=== PATIENT | female | born 1975 | race Caucasian/White ===

== ENCOUNTER → 2019-11-29 09:38 | Outpatient (BNVA) | payer OTHER, SELFPAY | PROVIDERS: PCP Internal Medicine; Visit Provider Physician Assistant | DX: Z76.89 Persons encountering health services in other specified circumstances (principal) ==

== ENCOUNTER → 2019-12-26 13:16 | Outpatient (BNVA) | payer OTHER, SELFPAY | PROVIDERS: PCP Internal Medicine; Referring Provider Internal Medicine; Visit Provider Physician Assistant | DX: Z76.89 Persons encountering health services in other specified circumstances (principal) ==

== ENCOUNTER → 2020-02-10 08:41 | Outpatient (BNVA) | payer OTHER, SELFPAY | PROVIDERS: PCP Internal Medicine; Visit Provider Physician Assistant | DX: Z76.89 Persons encountering health services in other specified circumstances (principal) ==

== ENCOUNTER 2020-02-24 09:43 | Outpatient (REF) | payer OTHER, SELFPAY ==
--- NOTE | 2020-02-24 10:40 | ECG_ITS ---
Test Reason : PREOP Blood Pressure : / mmHG Vent. Rate : 099 BPM Atrial Rate : 099 BPM P-R Int : 138 ms QRS Dur : 082 ms QT Int : 348 ms P-R-T Axes : 053 -34 043 degrees QTc Int : 446 ms Normal sinus rhythm Left axis deviation Abnormal ECG When compared with ECG of 25-AUG-2008 22:46, No significant change was found Referred By: Nelly Segundo Electronically Signed By:MIRANDA SHOOK
--- NOTE | 2020-02-24 10:57 | XR_ITS ---
EXAMINATION: XR CHEST CLINICAL INFORMATION: Bariatric service evaluation; E66.01 COMPARISON: Chest radiographs 08/25/2008, 12/23/2006 TECHNIQUE: 2 views of the chest were obtained. FINDINGS: Lungs are clear. The vascularity is normal. The costophrenic sulci are well-defined. The heart is normal in size. The hilar and mediastinal contours are unremarkable. No acute bony abnormality. XR/XR chest 2V IMPRESSION: Unremarkable examination.
[2020-02-24 11:07] LABS: MANUAL DIFF FLAG NO
[2020-02-24 11:12] LABS: Basophils Absolute Auto 0.1 X10*3/uL (0.0-0.2); Basophils Percent Auto 0.8 % (0-2); Eosinophils Absolute Auto 0.3 X10*3/uL (0.0-0.4); Eosinophils Percent Auto 5.6 % (0-4); Hematocrit 42.7 % (37-47); Hemoglobin 13.7 g/dl (12.0-16.0); Imm Gran Abs Auto 0.02 X10*3/uL (0.00-0.03); Imm Gran Pct Auto 0.3 % (0.0-0.4); Lymphocytes Absolute Auto 1.4 X10*3/uL (1.2-4.9); Lymphocytes Percent Auto 24.1 % (20-40); Mean Corpuscular HGB Conc 32.1 g/dl (31.0-35.0); Mean Corpuscular Hemoglobin 27.1 pg (27.0-33.0); Mean Corpuscular Volume 84.6 fL (80-98); Mean Platelet Volume 10.9 fL (9.4-12.3); Monocytes Absolute Auto 0.3 X10*3/uL (0.1-1.2); Monocytes Percent Auto 4.9 % (2-11); Neutrophils Absolute Auto 3.8 X10*3/uL (2.0-8.3); Neutrophils Percent Auto 64.3 % (45-73); Platelet Count 263 X10*3/uL (160-400); Red Blood Count 5.05 X10*6/uL (4.20-5.50); Red Cell Distribution Width 13.2 % (11.0-16.0); White Blood Count 5.9 X10*3/uL (4.8-10.8)
[2020-02-24 11:30] LABS: Alanine Aminotransferase 30 U/L (0-31); Albumin Level 4.4 g/dL (3.5-5.0); Alkaline Phosphatase 74 U/L (39-117); Anion Gap 10 (12-20); Aspartate Amino Transferase 23 U/L (5-31); Bilirubin Total 0.6 mg/dL (0.0-1.0); Blood Urea Nitrogen 13 mg/dL (9-16); C Reactive Protein 0.34 mg/dL (< or = 0.50); Calcium 9.8 mg/dL (8.4-10.2); Carbon Dioxide 29 mmol/L (22-29); Chloride 104 mmol/L (96-108); Cholesterol 186 mg/dL; Estimated Glomerular Filt Rate > 60; Glucose Fasting 131 mg/dL (60-99); HDL Cholesterol 46 mg/dL; Iron 51 mcg/dL (30-160); LDL Cholesterol Calculated 122 mg/dl; Percent Iron Saturation 13 % (15-50); Potassium 4.3 mmol/l (3.3-5.1); Sodium 139 mmol/L (135-145); Total Iron Binding Capacity 383 mcg/dL (228-428); Total Protein 7.2 g/dL (6.5-8.0); Triglycerides 94 mg/dL; Unsaturated Iron Binding 332 ug/dL
[2020-02-24 11:31] LABS: Estimated Average Glucose 134 mg/dL; Hemoglobin A1c % 6.3 %
[2020-02-24 11:53] LABS: Ferritin 25 ng/mL (10-250); TSH reflex Free T4 1.63 mIU/mL (0.32-4.0); Vitamin D 25-OH Total 26.7 ng/mL (>30)
[2020-02-24 12:15] LABS: Folate > 20.0 ng/mL (> or = 4.0); Vitamin B12 1033 pg/mL (200-900)
[2020-02-25 20:22] LABS: PTHI 38 pg/mL (14-64)
[2020-02-27 00:48] LABS: Zinc 83 mcg/dL (60-130)
[2020-02-29 11:52] LABS: Vitamin B1 12 nmol/L (8-30)
[2020-03-01 13:32] LABS: Vitamin A 42 mcg/dL (38-98)
== END 2020-02-24 09:44 | disposition home or self-care (01) ==
LOC: HO.LAB 09:43
PROVIDERS: PCP Internal Medicine; Visit Provider Physician Assistant
DX: Z01.818 Encounter for other preprocedural examination (principal); E66.01 Morbid (severe) obesity due to excess calories; R06.02 Shortness of breath
CPT/HCPCS: 36415; 71046; 80053; 80061; 82306; 82607; 82728; 82746; 83036; 83525; 83540; 83970; 84425; 84443; 84590; 84630; 85025; 86140; 93005

== ENCOUNTER → 2020-02-25 08:23 | Outpatient (BNVA) | payer OTHER, SELFPAY | PROVIDERS: PCP Internal Medicine; Visit Provider Physician Assistant | DX: Z76.89 Persons encountering health services in other specified circumstances (principal) ==

== ENCOUNTER → 2020-03-12 08:09 | Outpatient (BNVA) | payer OTHER, SELFPAY | PROVIDERS: PCP Internal Medicine; Visit Provider Surgery | DX: Z76.89 Persons encountering health services in other specified circumstances (principal) ==

== ENCOUNTER → 2020-04-02 14:15 | Outpatient (BNVA) | payer OTHER, SELFPAY | PROVIDERS: PCP Internal Medicine; Visit Provider Surgery ==

== ENCOUNTER → 2020-06-04 13:07 | Outpatient (BNVA) | payer OTHER, SELFPAY | PROVIDERS: PCP Internal Medicine; Visit Provider Physician Assistant ==

== ENCOUNTER → 2020-06-19 09:54 | Outpatient (BNVA) | payer OTHER, SELFPAY | PROVIDERS: PCP Internal Medicine; Visit Provider Surgery ==

== ENCOUNTER → 2020-07-10 10:04 | Outpatient (BNVA) | payer OTHER, SELFPAY | PROVIDERS: PCP Internal Medicine; Visit Provider Surgery ==

== ENCOUNTER → 2020-07-31 13:47 | Outpatient (BNVA) | payer OTHER, SELFPAY | PROVIDERS: PCP Internal Medicine; Visit Provider Surgery ==

== ENCOUNTER → 2020-08-14 15:34 | Outpatient (BNVA) | payer OTHER, SELFPAY | PROVIDERS: PCP Internal Medicine; Visit Provider Physician Assistant ==

== ENCOUNTER → 2020-09-01 14:00 | Outpatient (BNVA) | payer OTHER, SELFPAY | PROVIDERS: PCP Internal Medicine; Referring Provider Internal Medicine; Visit Provider Surgery ==

== ENCOUNTER → 2020-10-06 13:47 | Outpatient (BNVA) | payer OTHER, SELFPAY | PROVIDERS: PCP Internal Medicine; Referring Provider Internal Medicine; Visit Provider Surgery ==

== ENCOUNTER → 2020-12-01 11:21 | Outpatient (BNVA) | payer OTHER, SELFPAY | PROVIDERS: PCP Internal Medicine; Referring Provider Internal Medicine; Visit Provider Surgery ==

== ENCOUNTER → 2020-12-15 11:36 | Outpatient (BNVA) | payer OTHER, SELFPAY | PROVIDERS: PCP Internal Medicine; Visit Provider Physician Assistant Surgical ==

== ENCOUNTER 2021-10-26 15:35 | Outpatient (REF) | payer OTHER, SELFPAY ==
[2021-10-27 12:52] LABS: H Pylori Breath Test Positive (Negative)
== END 2021-10-26 15:36 | disposition home or self-care (01) ==
LOC: HO.LNP 15:35
PROVIDERS: Visit Provider Physician Assistant Surgical
DX: E66.01 Morbid (severe) obesity due to excess calories (principal)
CPT/HCPCS: 83013

== ENCOUNTER 2021-11-04 06:43 | Outpatient (REF) | payer OTHER, SELFPAY ==
--- NOTE | ~2021-11-04 | XR_ITS ---
EXAMINATION: XR CHEST 2 VIEWS CLINICAL INFORMATION: Morbid obesity. COMPARISON: Chest radiographs dated 02/24/2020. TECHNIQUE: Frontal and lateral views of the chest were obtained. FINDINGS: The heart, great vessels, pulmonary vasculature and mediastinum are normal. The lungs show no focal infiltrate, effusion or pneumothorax. There is no acute osseous abnormality. XR/XR chest 2V IMPRESSION: No active cardiopulmonary disease.
--- NOTE | 2021-11-04 06:49 | ECG_ITS ---
Test Reason : obesity Blood Pressure : / mmHG Vent. Rate : 095 BPM Atrial Rate : 095 BPM P-R Int : 144 ms QRS Dur : 082 ms QT Int : 358 ms P-R-T Axes : 051 -25 032 degrees QTc Int : 449 ms Normal sinus rhythm Normal ECG When compared with ECG of 24-FEB-2020 10:53, No significant change was found Referred By: Michael Willams Electronically Signed By:MARITZA ROSE
[2021-11-04 07:02] LABS: MANUAL DIFF FLAG NO
[2021-11-04 07:40] LABS: Basophils Absolute Auto 0.1 X10*3/uL (0.0-0.2); Basophils Percent Auto 1.1 % (0-2); Eosinophils Absolute Auto 0.4 X10*3/uL (0.0-0.4); Eosinophils Percent Auto 5.8 % (0-4); Hemoglobin 13.5 g/dl (12.0-16.0); Imm Gran Abs Auto 0.01 X10*3/uL (0.00-0.03); Imm Gran Pct Auto 0.2 % (0.0-0.4); Lymphocytes Absolute Auto 1.8 X10*3/uL (1.2-4.9); Lymphocytes Percent Auto 28.9 % (20-40); Mean Corpuscular HGB Conc 32.9 g/dl (31.0-35.0); Mean Corpuscular Hemoglobin 27.8 pg (27.0-33.0); Mean Corpuscular Volume 84.5 fL (80.0-98.0); Mean Platelet Volume 11.5 fL (9.4-12.3); Monocytes Absolute Auto 0.5 X10*3/uL (0.1-1.2); Monocytes Percent Auto 8.2 % (2-11); Neutrophils Absolute Auto 3.5 x10*3/uL (2.0-8.3); Neutrophils Percent Auto 55.8 % (45-73); Platelet Count 232 X10*3/uL (160-400); Red Blood Count 4.85 X10*6/uL (4.20-5.50); Red Cell Distribution Width 12.8 % (11.0-16.0); White Blood Count 6.2 X10*3/uL (4.8-10.8)
[2021-11-04 08:13] LABS: Estimated Average Glucose 197 mg/dL; Hemoglobin A1c % 8.5 %
[2021-11-04 08:19] LABS: Alanine Aminotransferase 45 U/L (0-31); Albumin Level 4.1 g/dL (3.5-5.0); Alkaline Phosphatase 109 U/L (39-117); Anion Gap 16 (12-20); Aspartate Amino Transferase 30 U/L (5-31); Bilirubin Total 0.9 mg/dL (0.0-1.0); Blood Urea Nitrogen 13 mg/dL (9-16); C Reactive Protein 0.95 mg/dL (< or = 0.50); Calcium 9.1 mg/dL (8.4-10.2); Carbon Dioxide 24 mmol/L (22-29); Chloride 106 mmol/L (96-108); Cholesterol 184 mg/dL; Estimated Glomerular Filt Rate > 60; Glucose Random 193 mg/dL (60-115); HDL Cholesterol 32 mg/dL; Iron 63 mcg/dL (30-160); LDL Cholesterol Calculated 131 mg/dl; Percent Iron Saturation 18 % (15-50); Potassium 4.1 mmol/L (3.3-5.1); Sodium 142 mmol/L (135-145); Total Iron Binding Capacity 360 mcg/dL (228-428); Total Protein 6.9 g/dL (6.5-8.0); Triglycerides 107 mg/dL; Unsaturated Iron Binding 297 ug/dL
[2021-11-04 08:47] LABS: Ferritin 153 ng/mL (10-250); Insulin 20 uU/mL (2-29); TSH reflex Free T4 2.95 uIU/mL (0.32-4.0)
[2021-11-04 09:46] LABS: Folate 14.7 ng/mL (> or = 4.0); Vitamin B12 488 pg/mL (200-900)
[2021-11-05 12:06] LABS: Calcium (PTHI) 9.3 mg/dL (8.6-10.2); PTHI 87 pg/mL (16-77)
[2021-11-07 12:51] LABS: Vitamin B1 9 nmol/L (8-30)
[2021-11-09 06:21] LABS: Zinc 60 mcg/dL (60-130)
[2021-11-10 19:57] LABS: Vitamin A 32 mcg/dL (38-98)
== END 2021-11-04 06:44 | disposition home or self-care (01) ==
LOC: HO.LAB 06:43
PROVIDERS: PCP Internal Medicine; Visit Provider Physician Assistant Surgical
DX: E66.01 Morbid (severe) obesity due to excess calories (principal)
CPT/HCPCS: 36415; 71046; 80053; 80061; 82306; 82607; 82728; 82746; 83036; 83525; 83540; 83970; 84425; 84443; 84590; 84630; 85025; 86140; 93005

== ENCOUNTER → 2021-11-16 11:00 | Outpatient (BNVA) | payer OTHER, SELFPAY | PROVIDERS: Visit Provider Counselor Mental Health | DX: F43.20 Adjustment disorder, unspecified (principal); E66.01 Morbid (severe) obesity due to excess calories | CPT/HCPCS: 90791 ==

== ENCOUNTER → 2021-11-25 09:03 | Outpatient (BNVA) | payer OTHER, SELFPAY | PROVIDERS: PCP Internal Medicine; Visit Provider Dietitian, Registered | DX: E66.01 Morbid (severe) obesity due to excess calories (principal); Z68.41 Body mass index [BMI] 40.0-44.9, adult | CPT/HCPCS: 97802 ==

== ENCOUNTER 2021-12-07 16:49 | Outpatient (REF) | payer OTHER, SELFPAY ==
[2021-12-08 13:54] LABS: H Pylori Breath Test Negative (Negative)
== END 2021-12-07 16:50 | disposition home or self-care (01) ==
LOC: HO.LNP 16:49
PROVIDERS: Visit Provider Physician Assistant Surgical
DX: Z11.2 Encounter for screening for other bacterial diseases (principal)
CPT/HCPCS: 83013

== ENCOUNTER 2021-12-08 07:58 | Outpatient (REF) | payer OTHER, SELFPAY ==
--- NOTE | ~2021-12-08 | FL_ITS ---
EXAMINATION: XR FLUOROSCOPY UPPER GI WITH AIR CLINICAL INFORMATION: Obesity COMPARISON: None TECHNIQUE: Upper GI was performed using thin and thick barium and effervescent granules FINDINGS: Esophageal motility is normal. No hernia or reflux is seen. The stomach and duodenum are normal. No fold thickening, mass, ulcer or stricture is seen. FLUOROSCOPY TIME: 0.6 minutes DOSE AREA PRODUCT: 7.4 guadalupe per centimeter squared. 22 saved fluoroscopic images. FL/FL upper GI w air IMPRESSION: Unremarkable examination.
--- NOTE | ~2021-12-08 | US_ITS ---
EXAMINATION: US COMPLETE ABDOMEN WITH LIVER ELASTOGRAPHY CLINICAL INFORMATION: Obesity COMPARISON: None. TECHNIQUE: Real-time imaging of the abdominal viscera. Noninvasive ultrasound liver fibrosis assessment is performed using Parisa ElastPQ point quantification shear wave elastography (2D-SWE) with a C5-2 MHz transducer. Multiple elastography samples are obtained. Limited exam due to bowel gas and body habitus. FINDINGS: PANCREAS: Not well visualized due to bowel gas ABDOMINAL AORTA: The proximal, middle, and distal aortic segments are normal in caliber. INFERIOR VENA CAVA: Visualized portions are normal. LIVER: Liver echotexture is increased. The liver is enlarged. The liver is normal in contour. No focal lesion or intrahepatic biliary duct dilatation. The right lobe measures 19 cm in length. The left lobe measures 18 cm in length. Portal flow is normal/hepatopedal. Left sonography is limited due to depth of the liver. Shear wave liver elastography median stiffness is 1.6 m/s (reference: normal median stiffness is 1.3 m/s or less). IQR/median stiffness to assess sampling precision is 0.08 (reference: good quality data set is IQR/median stiffness of 0.15 or less). GALLBLADDER: Normal. The gallbladder is physiologically distended without evidence of stones, sludge, polyps, wall thickening or pericholecystic fluid. COMMON BILE DUCT: Not seen RIGHT KIDNEY: Normal. No hydronephrosis. No renal calculi or focal parenchymal lesions. The kidney measures 10.4 cm in maximum dimension. LEFT KIDNEY: There are 2 stones measuring 5 mm in the lower pole. No hydronephrosis. No focal parenchymal lesions. The kidney measures 11.7 cm in maximum dimension. SPLEEN: Normal. The spleen measures 12 cm in maximum dimension. FREE FLUID: None. US/US abdomen comp w elastography IMPRESSION: 1. Impression: Enlarged echogenic liver suggestive of fatty infiltration. Limited visualization of the pancreas. Nonvisualization of the common bile duct. Left renal stones. 2. Liver elastography: Difficult exam due to depth of the liver and may not be diagnostic.. REFERENCE: Society of Radiologists in Ultrasound Liver Stiffness Thresholds (2020): LIVER STIFFNESS THRESHOLDS: *Liver Stiffness equal or less than 1.3 m/s: High probability of being normal. *Liver Stiffness less than 1.7 m/s: In the absence of other known clinical signs, rules out compensated advanced chronic liver disease. *Liver Stiffness 1.7-2.1 m/s: Suggestive of compensated advanced chronic liver disease but need further test for confirmation. *Liver Stiffness over 2.1 m/s: Rules in compensated advanced chronic liver disease. *Liver Stiffness over 2.4 m/s: Suggestive of clinically significant portal hypertension. QUALITY OF DATA SET: *IQR/Median value equal or less than 0.15 implies a quality data set. *IQR/Median value over 0.15 implies a poor quality data set. SIGNIFICANT CHANGE FROM PRIOR EXAM: Significant change if liver stiffness measurement is 10% or greater from prior exam. OTHER CONSIDERATIONS: The stage of liver fibrosis may be overestimated in the setting of acute hepatitis, liver inflammation, elevated liver function tests, hepatic vascular congestion, obstructive cholestasis, non-fasting state, and infiltrative diseases such as amyloidosis and lymphoma. In some patients with NAFLD, the liver stiffness thresholds for compensated advanced chronic liver disease may be lower. In causes other than viral hepatitis and NAFLD, liver stiffness thresholds are not well established.
== END 2021-12-08 07:59 | disposition home or self-care (01) ==
LOC: HO.US 07:58
PROVIDERS: Visit Provider Physician Assistant Surgical
DX: E66.01 Morbid (severe) obesity due to excess calories (principal)
CPT/HCPCS: 74246; 76705; 76981

== ENCOUNTER → 2022-03-21 08:18 | Outpatient (BNVA) | payer OTHER, SELFPAY | PROVIDERS: PCP Internal Medicine; Visit Provider Surgery | DX: Z13.89 Encounter for screening for other disorder (principal) ==

== ENCOUNTER → 2022-05-06 08:15 | Outpatient (BNVA) | payer OTHER, SELFPAY | PROVIDERS: PCP Internal Medicine; Visit Provider Surgery | DX: Z13.89 Encounter for screening for other disorder (principal) ==

== ENCOUNTER → 2022-05-16 08:02 | Outpatient (BNVA) | payer OTHER, SELFPAY | PROVIDERS: PCP Internal Medicine; Visit Provider Surgery | DX: E66.01 Morbid (severe) obesity due to excess calories (principal); K21.9 Gastro-esophageal reflux disease without esophagitis; R11.0 Nausea; Z01.818 Encounter for other preprocedural examination ==

== ENCOUNTER 2022-05-17 08:20 | Outpatient (REF) | payer OTHER, SELFPAY ==
[2022-05-17 08:50] LABS: MANUAL DIFF FLAG NO
[2022-05-17 09:39] LABS: Basophils Absolute Auto 0.1 X10*3/uL (0.0-0.2); Basophils Percent Auto 1.4 % (0-2); Eosinophils Absolute Auto 0.3 X10*3/uL (0.0-0.4); Eosinophils Percent Auto 4.3 % (0-4); Hematocrit 44.2 % (37.0-47.0); Hemoglobin 14.4 g/dl (12.0-16.0); Imm Gran Abs Auto 0.02 X10*3/uL (0.00-0.03); Imm Gran Pct Auto 0.3 % (0.0-0.4); Lymphocytes Absolute Auto 1.4 X10*3/uL (1.2-4.9); Lymphocytes Percent Auto 21.6 % (20-40); Mean Corpuscular HGB Conc 32.6 g/dl (31.0-35.0); Mean Corpuscular Hemoglobin 27.2 pg (27.0-33.0); Mean Corpuscular Volume 83.6 fL (80.0-98.0); Mean Platelet Volume 11.4 fL (9.4-12.3); Monocytes Absolute Auto 0.4 X10*3/uL (0.1-1.2); Monocytes Percent Auto 6.8 % (2-11); Neutrophils Absolute Auto 4.2 x10*3/uL (2.0-8.3); Neutrophils Percent Auto 65.6 % (45-73); Platelet Count 271 X10*3/uL (160-400); Red Blood Count 5.29 X10*6/uL (4.20-5.50); Red Cell Distribution Width 12.7 % (11.0-16.0); White Blood Count 6.5 X10*3/uL (4.8-10.8)
[2022-05-17 09:43] LABS: Prothrombin Time 11.7 SEC (10.0-13.1)
[2022-05-17 09:45] LABS: Partial Thromboplastin Time 37.4 SEC (26.0-36.4)
[2022-05-17 09:48] LABS: Estimated Average Glucose 174 mg/dL; Hemoglobin A1c % 7.7 %
[2022-05-17 10:27] LABS: Alanine Aminotransferase 59 U/L (0-31); Albumin Level 4.5 g/dL (3.5-5.0); Alkaline Phosphatase 103 U/L (39-117); Anion Gap 15 (12-20); Aspartate Amino Transferase 42 U/L (5-31); Bilirubin Total 1.3 mg/dL (0.0-1.0); Blood Urea Nitrogen 14 mg/dL (9-16); C Reactive Protein 0.58 mg/dL (< or = 0.50); Carbon Dioxide 28 mmol/L (22-29); Chloride 103 mmol/L (96-108); Cholesterol 166 mg/dL; Estimated Glomerular Filt Rate > 60; Glucose Random 124 mg/dL (60-115); HDL Cholesterol 29 mg/dL; LDL Cholesterol Calculated 116 mg/dl; Potassium 4.1 mmol/L (3.3-5.1); Sodium 142 mmol/L (135-145); Total Protein 7.3 g/dL (6.5-8.0); Triglycerides 106 mg/dL
[2022-05-17 10:49] LABS: Insulin 12 uU/mL (2-29); TSH reflex Free T4 1.55 uIU/mL (0.32-4.0)
== END 2022-05-17 08:21 | disposition home or self-care (01) ==
LOC: HO.LAB 08:20
PROVIDERS: PCP Internal Medicine; Visit Provider Surgery
DX: E66.01 Morbid (severe) obesity due to excess calories (principal)
CPT/HCPCS: 36415; 80053; 80061; 83036; 83525; 84443; 85025; 85610; 85730; 86140; 86850; 86900; 86901

== ENCOUNTER → 2022-05-20 12:59 | Outpatient (BNVA) | payer OTHER, SELFPAY | PROVIDERS: PCP Internal Medicine; Visit Provider Surgery | DX: Z13.89 Encounter for screening for other disorder (principal) ==

== ENCOUNTER → 2022-05-26 07:57 | Day surgery (SDC) | payer OTHER, SELFPAY ==
[2022-05-16 13:56] VITALS: BMI 42.0
--- NOTE | 2022-05-20 18:55 | MHC.SHP ---
Pre-Procedural Eval Section A Date of Service: 05/20/22 The patient is an INPATIENT: Yes The History & Physical has been completed within 30 days and I have reviewed it.: Yes Section B Chief Complaint: Morbid (severe) obesity due to excess calories Relevant Family History (Specify if Yes): No Relevant Social History: None Present Medications: None Medical History: No relevant PMH History of Previous Operations: No relevant previous surgery Allergies: Allergies Allergy/AdvReac Type Severity Reaction Status Date / Time Seasonal Allergies Allergy Intermediate Sneezing Verified 05/16/22 09:18 Review of Systems Sugical H&P ROS: Negative: Constitution, Cardiovascular, Respiratory, Neurological, Psychiatric, Hem-Onc, Allergic/Immunologic, Gastrointestinal, Genitourinary, Musculoskeletal, Integumentary, Endocrine and Eyes/Ears/Nose/Throat Exam Surgical H&P Exam: Normal: HEENT, Normal: Heart, Normal: Lungs, Normal: Extremities, Normal: Abdomen, Normal: Skin and Normal: Neurological Plan Diagnosis/Plan: Unchanged I have reviewed the history and physical and performed a pertinent physical examination on my patient. No changes have occurred unless specified. Time Spent With Patient Time: Total time managing care of this patient today ____ minutes.
--- NOTE | 2022-05-25 09:38 | P.CONAN_ITS ---
HPI - Anesthesia Eval Consult details Narrative: 46yo F for Gastrectomy Sleeve EGD, possible diaphragmatic hernia, possible ventral hernia,possible open PMFSH Active Problems Active Problems: All Active Problems (Updated 05/16/22 @ 13:56 by Julianne Bedoya RN) Morbid obesity (Acute) Body mass index (BMI) of 40.0 to 44.9 in adult (Acute) BMI 45.0-49.9, adult (Acute) Morbid obesity with BMI of 45.0-49.9, adult (Acute) Adjustment disorder, unspecified (Acute) Vitamin B12 deficiency (Acute) Hyperlipidemia (Acute) GERD (gastroesophageal reflux disease) (Acute) Type 2 diabetes mellitus (Acute) Asthma (Acute) Hypertension (Acute) Past Medical History Medical History (Updated 05/16/22 @ 13:56 by Julianne Bedoya RN) Anxiety Asthma Hx MRSA infection Hypertension IBS (irritable bowel syndrome) Seasonal allergies Type 2 diabetes mellitus Family History Family History Father Hypertension Diabetes mellitus Mother Hypertension Seizures Brother Hypertension Son No problems noted. Surgical History Surgical History (Updated 05/16/22 @ 13:55 by Julianne Bedoya RN) H/O: hysterectomy History of facial surgery Hx of section S/P correction of deviated nasal septum Sigmoidoscopy performed Social History Social History Household Members Other:: minor child & mother Are you a primary personal care aide to a significant other at home: Yes (minor child) Do you presently have visiting nurse or other home services: No Alcohol intake: current Alcohol intake frequency: holidays/special occasions only Patient Tobacco Use Status: Never used Tobacco Use of substances other than those prescribed or required for medical reasons: No Have you been hit, kicked, punched, or otherwise hurt by someone within the past year? If so, by whom?: No Are you DNR?: No Advance Directives: No (mother is primary contact) Advance Directives Information Provided: Yes (as above noted-brochure mailed) Advance Directives on File: No Recently lost weight without trying: No Nutrition Risks: No Nutritional Risk Patient : No : No Poor oral hygiene: No (bonded tooth upper front) Meds Allergies Allergy/AdvReac Type Severity Reaction Status Date / Time Seasonal Allergies Allergy Intermediate Sneezing Verified 05/16/22 09:18 Home Medications Medication Instructions Recorded Confirmed Last Taken Type albuterol sulfate 90 mcg/actuation 2 puff inhalation Q6H PRN Wheezing 11/27/19 05/26/22 05/25/22 History aerosol inhaler (ProAir HFA) amlodipine 5 mg tablet 5 mg PO DAILY 11/27/19 05/26/22 05/25/22 History lisinopril 40 mg tablet 40 mg PO DAILY 11/27/19 05/26/22 05/25/22 History cetirizine 10 mg capsule (All Day 10 mg PO DAILY 02/25/20 05/26/22 05/25/22 History Allergy (cetirizine)) metformin 500 mg tablet,extended 1 tab PO BID 05/16/22 05/26/22 05/25/22 22:00 History release 24 hr ondansetron HCl 4 mg tablet 4 mg PO Q12H PRN Nausea And 05/26/22 05/26/22 Unknown History Vomiting Exam Exam Date and Time: May 25, 2022 0938 Height,Weight and Vital Signs: Height 5 ft 3 in Weight 107.501 kg Pertinent Lab Results Pertinent Lab Results: Laboratory Tests 05/17/22 08:45 Blood Type O Positive Antibody Screen NEGATIVE Laboratory Tests 05/17/22 05/17/22 08:49 08:49 WBC 6.5 Hgb 14.4 Hct 44.2 Plt Count 271 Sodium 142 Potassium 4.1 Chloride 103 Carbon Dioxide 28 BUN 14 Creatinine 0.77 Narrative Narrative: EKG 10/2021 Vent. Rate : 095 BPM ? ? Atrial Rate : 095 BPM ?? P-R Int : 144 ms? QRS Dur : 082 ms ? ? QT Int : 358 ms ? ? ? P-R-T Axes : 051 -25 032 degrees ?? QTc Int : 449 ms ? Normal sinus rhythm Normal ECG When compared with ECG of 24-FEB-2020 10:53, No significant change was found Assessment and Plan Assessment Anesthesia Assessment: Chart Reviewed
[2022-05-25 14:03] LABS: COVID-19 Test Invalid (Negative); IDNOW Serial# BCCEAD1C
--- NOTE | ~2022-05-26 | XR_ITS ---
EXAMINATION: XR CHEST CLINICAL INFORMATION: Laryngitis COMPARISON: Chest radiograph from 11/04/2021 TECHNIQUE: 2 views of the chest were obtained. FINDINGS: Elevation of the right hemidiaphragm, stable. Right basilar atelectasis. No pneumothorax. Trachea is midline. Cardiomediastinal silhouette is not enlarged. No large pleural effusion. Osseous structures are intact. Soft tissues are unremarkable. XR/XR chest 2V IMPRESSION: 1. Elevation of the right hemidiaphragm, stable. 2. Right basilar atelectasis.
[2022-05-26 08:32] LABS: COVID-19 Test Negative (Negative); IDNOW Serial# 08D9AD1C
--- NOTE | 2022-05-26 11:17 | PHA.MEDREC ---
Pharmacy Consult ? Medication Reconciliation Pharmacy has completed the medication reconciliation. Reviewed med rec done by nursing
[2022-05-26 11:20] VITALS: BP 160/78; PULSE 146; RESP 16; TEMP 36.3; O2SAT 99
[2022-05-26 11:23] VITALS: PULSE 136; TEMP 36.7
[2022-05-26 11:30] LABS: Glucose, Whole Blood 111 mg/dL (60-115)
[2022-05-26 11:38] VITALS: PULSE 121
--- NOTE | 2022-05-26 11:47 | PC.NURSE ---
patient is extremely anxious. she is going to meditate in order to decrease her heart rate down. iv inserted and fluids open wide open
[2022-05-26] MEDS: Lactated Ringers 1,000 ML 999 ML IV (11:49)
[2022-05-26 12:21] VITALS: PULSE 111
[2022-05-26 12:23] VITALS: BP 133/98; PULSE 101; RESP 16; O2SAT 100
--- NOTE | 2022-05-26 12:28 | ECG_ITS ---
Test Reason : preop Blood Pressure : / mmHG Vent. Rate : 114 BPM Atrial Rate : 114 BPM P-R Int : 142 ms QRS Dur : 090 ms QT Int : 334 ms P-R-T Axes : 040 -41 032 degrees QTc Int : 460 ms Sinus tachycardia Left axis deviation Anterolateral infarct , age undetermined Abnormal ECG When compared with ECG of 04-NOV-2021 06:47, Anterolateral infarct is now Present - lead positioning and body habitus may play a role. Referred By: Yoana Esquivel Electronically Signed By:MIRANDA SHOOK
[2022-05-26] MEDS: Lactated Ringers 1,000 ML 100 ML IVCONT (12:48)
--- NOTE | 2022-05-26 13:44 | PC.NURSE ---
IV REMOVED. PATIENT WAS SEEN BY MD PROCTOR AND WAS CANCELLED DUE EKG CHANGES. NO CP OR SOB. PATIENT CALLED FOR HER RIDE HOME.
== END ==
LOC: HO.SSS 07:57 → HO.SSSA 05-27 07:52 → HO.SSS 11-23 01:12
PROVIDERS: Physician Assistant Surgical; PCP Internal Medicine; Visit Provider Surgery
DX: E66.01 Morbid (severe) obesity due to excess calories (principal); Z68.41 Body mass index [BMI] 40.0-44.9, adult; Z53.09 Procedure and treatment not carried out because of other contraindication; R94.31 Abnormal electrocardiogram [ECG] [EKG]; E11.9 Type 2 diabetes mellitus without complications; Z20.822 Contact with and (suspected) exposure to COVID-19
CPT/HCPCS: 71046; 82947; 86850; 86900; 86901; 87635; 93005; J0131; J0690

== ENCOUNTER → 2022-06-07 09:35 | Outpatient (REF) | payer OTHER, SELFPAY ==
--- NOTE | ~2022-06-07 | NM_ITS ---
Lexiscan Myocardial perfusion study Indication: Preoperative cardiovascular examination Technique: The patient was brought in for a Lexiscan perfusion study on 06/07/2022 and was injected 0.4 mg of Lexiscan intravenously. Within a minute of this injection 40 mCi of sestamibi was given intravenously. Images were obtained using the SPECT gamma camera interlaced with the gating device. Images were obtained in supine position. Resting perfusion study was performed on 06/09/2022. Patient was administered 40 mCi of sestamibi intravenously at rest. Images were then obtained in supine position. Images were processed with the software and compared side to side in short axis, horizontal long axis and vertical long axis views. Total DLP 135mGy-cm. Findings: Raw acquisition reviewed. The stress perfusion study showed markedly reduced tracer uptake in the distal anterior septum. No significant change with CT attenuation correction. The gated study shows normal LV systolic function with calculated LVEF of 61%. LV cavity is normal in size. The gated study shows reduced contractility in the distal anterior septum. Resting study shows diminished tracer uptake in the distal part of anterior septum and adjacent anterior wall. Appearance similar to stress acquisition. No significant change with CT attenuation correction. Gating at rest reveals ejection fraction at 51%. Reduced contractility in the distal anterior septum. The findings are consistent with no clear reversible defects. Fixed defect in the distal part of anterior septum. NM/NM tello perf SPECT rest & str Impression: 1. Myocardial perfusion imaging study shows no evidence of ischemia. Fixed distal anteroseptal defect that could be from prior infarct. Cannot exclude soft tissue attenuation artifact. 2. Gated LVEF is 61% during stress and 51% during rest. 3. Transient ischemic dilatation not present. EKG component of the test reported separately.
--- NOTE | 2022-06-07 09:38 | CA_ITS ---
Acquisition Time: 2022-06-07 09:55:21 Total Exercise Time: 00:02:00 Test Indications: PREPROC EXAM Medications: Protocol: LEXISCAN Max HR: 169 BPM 96% of Pred: 176 BPM Max BP: 184/088 mmHG Max Work Load: 1.0 METS Pharmacological stress test with Lexiscan injection while sitting and kicking her legs, without anignal symptoms, without arrythmias, with normotensive response to injection, without EKG changes. In recovery reversed with Aminophyillne 75mg IVP. Nuclear images pending. Tets reviewed with Dr. Escobedo. Referred By: Michael Willams Overread By: REDD COLLINS
== END ==
LOC: HO.CARD 09:35
PROVIDERS: Visit Provider Surgery
DX: Z01.818 Encounter for other preprocedural examination (principal); R06.02 Shortness of breath; R94.31 Abnormal electrocardiogram [ECG] [EKG]
CPT/HCPCS: 78452; 93017; A9500; J0280; J2785

== ENCOUNTER → 2022-06-10 07:58 | Outpatient (REF) | payer OTHER, SELFPAY ==
--- NOTE | 2022-06-10 08:02 | CA_ITS ---
Transthoracic Echocardiogram Patient (Last, First, Middle): Kaity Graham M Gender: Female Date of : 1975 Age: 46 Procedure Date: 06/10/2022 Procedure Type: Transthoracic Echocardiogram Location: OP Height: 160.02 cm Weight: 101.15 kg BSA: 2.03 m2 Heart Rate: bpm BP: 124 / 80 mmHg Beer Maker: Referring MD: Michael GAINES Streetcar Operator: Shade Escobedo MD Symptoms: Z01.818 PRE-OP, R94.31 - Abnormal electrocardiogram [ECG] [EKG] Study Quality: Adequate ECG Rhythm: Sinus Conclusions: - 1. Normal LV systolic function with grade 1 diastolic dysfunction 2. Normal cardiac valvular Doppler 3. Normal RV systolic pressure 4. No gross pericardial effusion Findings Left Ventricle Normal left ventricular size, thickness, and systolic function. The visually estimated ejection fraction is between 55-60%. Spectral Doppler is indicative of an impaired relaxation filling pattern. E/E prime ratio is <8, consistent with normal filling pressures. Evidence suggests grade I (mild) diastolic dysfunction. Right Ventricle Normal right ventricular cavity size and systolic function. Atria Both atria are normal in size. There is no evidence of interatrial shunt. Aortic Valve Normal aortic valve structure and function. There is no aortic valve stenosis. There is no aortic valve regurgitation. Mitral Valve Normal mitral valve structure and function. There is trace mitral valve regurgitation. There is no mitral valve stenosis. Pulmonic Valve The pulmonic valve is likely normal. Tricuspid Valve Normal tricuspid valve structure. There is trace tricuspid valve regurgitation. The right ventricular systolic pressure is normal. The right ventricular systolic pressure is 20 mmHg. Normal right atrial pressure. There is no evidence of pulmonary hypertension. Great Vessels All visible segments of the aorta are normal in size. The pulmonary artery was not well visualized. Venous The inferior vena cava is normal in size and collapses greater than 50% with inspiration. Pericardium/Pleural There is no evidence of pericardial effusion. Prior Study Comparison No prior study available for comparison. Measurements 2D Linear Measurements IVSd: 1.09 0.6-0.9/0.6-1.0 cm LVIDd: 4.39 3.9-5.3/4.2-5.9 cm LVIDd Index: 2.16 2.4-3.2/2.2-3.1 cm/m2 LVIDs: 2.85 2.0-3.6 cm LVPWd: 1.18 0.7-1.1 cm Ao Root: 3.00 2.1-3.5 cm LA Diam: 3.60 2.7-3.8/3.0-4.0 cm LAIDs Index: 1.77 1.5-2.3 cm/m2 LV Mass: 219.24 67-162/88-224 g LV Mass Index: 108.00 43-95/49-115 g/m2 LVOT Diam: 2.00 3.0+(-)1.3 cm 2D Systolic Function EF 4C: 57.40 >55% EF 2C: 58.10 >55% EF BiP: 57.60 >55% Mitral Valve MV Pk E: 0.57 MV PK A: 0.87 MV Decel Time: 228.00 E/A: 0.70 E'Lateral: 7.83 E'Medial: 4.79 E/E' Med: 11.80 E/E' Lat: 7.20 PHT: 67.00 MVA PHT: 3.28 Decel [place]: 2.48 Aortic Valve AoV Pk Will: 1.79 AoV Mn Will: 1.12 AoV VTI: 0.32 AoV Pk Grad: 13.00 Aov Mn Grad: 6.00 LILLIAN Cont.VTI: 2.47 LVOT LVOT Pk Will: 1.39 LVOT Mn Will: 0.89 LVOT VTI: 0.25 LVOT Pk Grad: 8.00 LVOT Mn Grad: 4.00 LVOT Diam: 2.00 LVOT Area: 3.14 Diastolic Function MV Pk E: 0.57 MV Pk A: 0.87 E/A: 0.70 E'Medial: 4.79 E/E' Med: 11.80 E' Laterial: 7.83 E/E' Lat: 7.20 Right Ventricle TAPSE (mm): 21.00 TVS' Will: 13.00 Tricuspid Valve TR Pk Will: 2.08 TR Pk Grad: 17.00 RA Press: 3.00 RVSP: 20.00 Great Vessels Aorta Ao Root-2D: 3.00 2.0-3.7 cm Ao Asc: 3.20 2.1-3.4 cm Pulmonary Valve PV Pk Will: 1.14 Peak PV Grad: 5.00 Updated in Other Vendor System with Status of Final Shade Escobedo MD electronically signed on 06/10/2022 3:27:30 PM with status of Final
--- NOTE | 2022-06-10 08:02 | HM_ITS ---
Conclusion: 1. Patient was monitored for total period of 2 days 2. Baseline was normal sinus rhythm with average heart of 77 beats per minute 3. No pauses noted 4. Very rare ectopy noted 5. Patient reported total 7 events, 3 of these events were with wrong dates. The other 4 events correlated with sinus rhythm MTDD
== END ==
LOC: HO.CARD 07:58
PROVIDERS: Visit Provider Surgery
DX: Z01.818 Encounter for other preprocedural examination (principal); R06.02 Shortness of breath; R94.31 Abnormal electrocardiogram [ECG] [EKG]
CPT/HCPCS: 93225; 93306

== ENCOUNTER → 2022-06-16 14:32 | Outpatient (BNVA) | payer OTHER, SELFPAY | PROVIDERS: PCP Internal Medicine; Referring Provider Internal Medicine; Visit Provider Internal Medicine | DX: Z13.89 Encounter for screening for other disorder (principal) ==

== ENCOUNTER 2022-07-15 08:16 | Outpatient (REF) | payer OTHER, SELFPAY ==
[2022-07-15 08:38] LABS: MANUAL DIFF FLAG NO
[2022-07-15 08:43] LABS: Basophils Absolute Auto 0.1 X10*3/uL (0.0-0.2); Basophils Percent Auto 0.9 % (0-2); Eosinophils Absolute Auto 0.4 X10*3/uL (0.0-0.4); Eosinophils Percent Auto 5.5 % (0-4); Hematocrit 40.7 % (37.0-47.0); Hemoglobin 13.2 g/dl (12.0-16.0); Imm Gran Abs Auto 0.02 X10*3/uL (0.00-0.03); Imm Gran Pct Auto 0.3 % (0.0-0.4); Lymphocytes Absolute Auto 1.4 X10*3/uL (1.2-4.9); Lymphocytes Percent Auto 19.7 % (20-40); Mean Corpuscular HGB Conc 32.4 g/dl (31.0-35.0); Mean Corpuscular Hemoglobin 27.3 pg (27.0-33.0); Mean Corpuscular Volume 84.3 fL (80.0-98.0); Mean Platelet Volume 10.2 fL (9.4-12.3); Monocytes Absolute Auto 0.6 X10*3/uL (0.1-1.2); Monocytes Percent Auto 8.5 % (2-11); Neutrophils Absolute Auto 4.5 x10*3/uL (2.0-8.3); Neutrophils Percent Auto 65.1 % (45-73); Platelet Count 316 X10*3/uL (160-400); Red Blood Count 4.83 X10*6/uL (4.20-5.50); Red Cell Distribution Width 13.8 % (11.0-16.0); White Blood Count 6.9 X10*3/uL (4.8-10.8)
[2022-07-15 08:47] LABS: INTERNATIONAL NORM RATIO 0.9 (0.9-1.1); Prothrombin Time 10.8 SEC (10.0-13.1)
[2022-07-15 09:16] LABS: Anion Gap 12 (12-20); Blood Urea Nitrogen 7 mg/dL (9-16); Calcium 9.3 mg/dL (8.4-10.2); Carbon Dioxide 30 mmol/L (22-29); Chloride 107 mmol/L (96-108); Estimated Glomerular Filt Rate > 60; Glucose Random 130 mg/dL (60-115); Potassium 3.7 mmol/L (3.3-5.1); Sodium 145 mmol/L (135-145)
== END 2022-07-15 08:17 | disposition home or self-care (01) ==
LOC: HO.LAB 08:16
PROVIDERS: PCP Internal Medicine; Visit Provider Internal Medicine
DX: Z01.810 Encounter for preprocedural cardiovascular examination (principal)
CPT/HCPCS: 36415; 80048; 85025; 85610

== ENCOUNTER → 2022-07-27 08:40 | Outpatient (BNVA) | payer OTHER, SELFPAY | PROVIDERS: PCP Internal Medicine; Visit Provider Surgery ==

== ENCOUNTER → 2022-08-03 14:41 | Outpatient (BNVA) | payer OTHER, SELFPAY | PROVIDERS: PCP Internal Medicine; Referring Provider Internal Medicine; Visit Provider Internal Medicine ==

== ENCOUNTER 2022-08-10 06:11 | Day surgery (SDC) | payer OTHER, SELFPAY ==
[2022-08-02 08:15] LABS: MANUAL DIFF FLAG NO
[2022-08-02 08:24] LABS: Basophils Absolute Auto 0.1 X10*3/uL (0.0-0.2); Eosinophils Absolute Auto 0.3 X10*3/uL (0.0-0.4); Eosinophils Percent Auto 3.8 % (0-4); Hematocrit 43.2 % (37.0-47.0); Hemoglobin 13.9 g/dl (12.0-16.0); Imm Gran Abs Auto 0.03 X10*3/uL (0.00-0.03); Imm Gran Pct Auto 0.4 % (0.0-0.4); Lymphocytes Absolute Auto 1.4 X10*3/uL (1.2-4.9); Lymphocytes Percent Auto 20.1 % (20-40); Mean Corpuscular HGB Conc 32.2 g/dl (31.0-35.0); Mean Corpuscular Hemoglobin 27.3 pg (27.0-33.0); Mean Corpuscular Volume 84.7 fL (80.0-98.0); Mean Platelet Volume 11.1 fL (9.4-12.3); Monocytes Absolute Auto 0.5 X10*3/uL (0.1-1.2); Monocytes Percent Auto 6.9 % (2-11); Neutrophils Absolute Auto 4.6 x10*3/uL (2.0-8.3); Neutrophils Percent Auto 67.8 % (45-73); Platelet Count 235 X10*3/uL (160-400); Red Cell Distribution Width 13.5 % (11.0-16.0); White Blood Count 6.8 X10*3/uL (4.8-10.8)
[2022-08-02 08:37] LABS: Estimated Average Glucose 140 mg/dL; Hemoglobin A1c % 6.5 %
[2022-08-02 08:41] LABS: Prothrombin Time 11.1 SEC (10.0-13.1)
[2022-08-02 08:44] LABS: Partial Thromboplastin Time 35.2 SEC (26.0-36.4)
[2022-08-02 08:56] LABS: Alanine Aminotransferase 38 U/L (0-31); Albumin Level 4.2 g/dL (3.5-5.0); Alkaline Phosphatase 94 U/L (39-117); Anion Gap 14 (12-20); Aspartate Amino Transferase 29 U/L (5-31); Bilirubin Total 1.7 mg/dL (0.0-1.0); Blood Urea Nitrogen 14 mg/dL (9-16); C Reactive Protein 0.87 mg/dL (< or = 0.50); Calcium 9.7 mg/dL (8.4-10.2); Carbon Dioxide 27 mmol/L (22-29); Chloride 104 mmol/L (96-108); Cholesterol 134 mg/dL; Estimated Glomerular Filt Rate > 60; Glucose Random 161 mg/dL (60-115); HDL Cholesterol 27 mg/dL; LDL Cholesterol Calculated 84 mg/dl; Potassium 3.8 mmol/L (3.3-5.1); Sodium 141 mmol/L (135-145); Total Protein 7.1 g/dL (6.5-8.0); Triglycerides 116 mg/dL
[2022-08-02 09:15] LABS: TSH reflex Free T4 1.31 uIU/mL (0.32-4.0)
[2022-08-02 09:30] LABS: Insulin 20 uU/mL (2-29)
[2022-08-03 13:47] VITALS: BMI 39.1
--- NOTE | 2022-08-06 12:08 | MHC.SHP ---
Pre-Procedural Eval Section A Date of Service: 08/06/22 The patient is an INPATIENT: No The History & Physical has been completed within 30 days and I have reviewed it.: Yes Section B Chief Complaint: obesity Relevant Family History (Specify if Yes): No Relevant Social History: None Present Medications: None Medical History: No relevant PMH History of Previous Operations: No relevant previous surgery Allergies: Allergies Allergy/AdvReac Type Severity Reaction Status Date / Time Seasonal Allergies Allergy Intermediate Sneezing Verified 08/03/22 14:46 Review of Systems Sugical H&P ROS: Negative: Constitution, Cardiovascular, Respiratory, Neurological, Psychiatric, Hem-Onc, Allergic/Immunologic, Gastrointestinal, Genitourinary, Musculoskeletal, Integumentary, Endocrine and Eyes/Ears/Nose/Throat Exam Surgical H&P Exam: Normal: HEENT, Normal: Heart, Normal: Lungs, Normal: Extremities, Normal: Abdomen, Normal: Skin and Normal: Neurological Plan Diagnosis/Plan: Unchanged I have reviewed the history and physical and performed a pertinent physical examination on my patient. No changes have occurred unless specified. Time Spent With Patient Time: Total time managing care of this patient today ____ minutes.
--- NOTE | 2022-08-09 10:31 | P.CONAN_ITS ---
Documented by User: Janny Chilel NP 08/09/22 10:33 HPI - Anesthesia Eval Consult details Narrative: 46yo F for Gastrectomy Sleeve,EGD Poss, Diaphragmatic hernia,Poss Ventral Hernia,Poss Open Cardiac cleared: Overall, the EKG findings as well as stress perfusion imaging findings all related to her obesity. No further cardiac testing. Reassurance only. May proceed with bariatric surgery. PMFSH Active Problems Active Problems: All Active Problems (Updated 08/03/22 @ 15:16 by Kishore Richardson MD) Preoperative cardiovascular examination (Acute) Morbid obesity (Acute) Body mass index (BMI) of 40.0 to 44.9 in adult (Acute) BMI 45.0-49.9, adult (Acute) Morbid obesity with BMI of 45.0-49.9, adult (Acute) Adjustment disorder, unspecified (Acute) Vitamin B12 deficiency (Acute) Hyperlipidemia (Acute) GERD (gastroesophageal reflux disease) (Acute) Abnormal EKG (Acute) Abnormal myocardial perfusion study (Acute) Type 2 diabetes mellitus (Acute) Asthma (Acute) Hypertension (Acute) Past Medical History Medical History (Updated 08/03/22 @ 15:16 by Kishore Richardson MD) Anxiety Asthma Hx MRSA infection Hypertension IBS (irritable bowel syndrome) Seasonal allergies Tachycardia Type 2 diabetes mellitus Family History Family History Father Hypertension Diabetes mellitus Mother Hypertension Seizures Brother Hypertension Son No problems noted. Surgical History Surgical History H/O: hysterectomy History of facial surgery Hx of section S/P correction of deviated nasal septum Sigmoidoscopy performed Social History Social History Household Members Other:: minor child & mother Are you a primary transition of care specialist to a significant other at home: Yes (minor child) Do you presently have visiting nurse or other home services: No Alcohol intake: current Alcohol intake frequency: holidays/special occasions only Patient Tobacco Use Status: Never used Tobacco Use of substances other than those prescribed or required for medical reasons: No Have you been hit, kicked, punched, or otherwise hurt by someone within the past year? If so, by whom?: No Are you DNR?: No Advance Directives: No (mother is primary contact) Advance Directives Information Provided: Yes (as above noted-brochure mailed) Advance Directives on File: No Recently lost weight without trying: No Eating poorly because of decreased appetite: No Nutrition Risks: No Nutritional Risk Patient : No (hysterectomy 2019) FDLMP: had hysterectomy : No Poor oral hygiene: No (bonded tooth upper front) Meds Allergies Allergy/AdvReac Type Severity Reaction Status Date / Time Seasonal Allergies Allergy Intermediate Sneezing Verified 08/03/22 14:46 Home Medications Medication Instructions Recorded Confirmed Last Taken Type albuterol sulfate 90 mcg/actuation 2 puff inhalation Q6H PRN Wheezing 11/27/19 08/03/22 05/25/22 History aerosol inhaler (ProAir HFA) amlodipine 5 mg tablet 5 mg PO DAILY 11/27/19 08/03/22 08/10/22 06:00 History lisinopril 40 mg tablet 40 mg PO DAILY 11/27/19 08/03/22 05/25/22 History cetirizine 10 mg capsule (All Day 10 mg PO DAILY 02/25/20 08/03/22 05/25/22 Hist ory Allergy (cetirizine)) ondansetron HCl 4 mg tablet 4 mg PO Q12H PRN Nausea And 05/26/22 08/10/22 Unknown History Vomiting atorvastatin 10 mg tablet 10 mg PO DAILY 08/03/22 08/10/22 Unknown History metformin 500 mg tablet,extended 500 mg PO BID 08/03/22 08/10/22 Unknown History release 24 hr Exam Exam Date and Time: August 09, 2022 1031 Height,Weight and Vital Signs: Height 5 ft 3 in Weight 100.244 kg Pertinent Lab Results Pertinent Lab Results: Laboratory Tests 08/02/22 08/02/22 08/02/22 08:12 08:13 08:13 WBC 6.8 RBC 5.10 Hgb 13.9 Hct 43.2 MCV 84.7 MCH 27.3 MCHC 32.2 RDW 13.5 Plt Count 235 D MPV 11.1 Immature Gran % (Auto) 0.4 Neut % (Auto) 67.8 Lymph % (Auto) 20.1 [place] % (Auto) 6.9 Eos % (Auto) 3.8 Baso % (Auto) 1.0 Lymph # (Auto) 1.4 [place] # (Auto) 0.5 Eos # (Auto) 0.3 Baso # (Auto) 0.1 Abs Immat Gran (auto) 0.03 Absolute Neuts (auto) 4.6 Absolute Nucleated RBC 0.000 Nucleated RBC % (auto) 0.0 PT 11.1 INR 1.0 APTT 35.2 Sodium Potassium Chloride Carbon Dioxide Anion Gap BUN Creatinine Estim Creat Clear Calc Estimated GFR Random Glucose Estimat Average Glucose Hemoglobin A1c % Insulin Level Calcium Total Bilirubin AST ALT Alkaline Phosphatase C-Reactive Protein Total Protein Albumin Triglycerides Cholesterol LDL Cholesterol, Calc HDL Cholesterol TSH Blood Type O Positive Antibody Screen NEGATIVE 08/02/22 08/02/22 08:13 08:13 WBC RBC Hgb Hct MCV MCH MCHC RDW Plt Count MPV Immature Gran % (Auto) Neut % (Auto) Lymph % (Auto) [place] % (Auto) Eos % (Auto) Baso % (Auto) Lymph # (Auto) [place] # (Auto) Eos # (Auto) Baso # (Auto) Abs Immat Gran (auto) Absolute Neuts (auto) Absolute Nucleated RBC Nucleated RBC % (auto) PT INR APTT Sodium 141 Potassium 3.8 Chloride 104 Carbon Dioxide 27 Anion Gap 14 BUN 14 Creatinine 0.71 Estim Creat Clear Calc TNP Estimated GFR > 60 Random Glucose 161 H Estimat Average Glucose 140 Hemoglobin A1c % 6.5 Insulin Level 20 Calcium 9.7 Total Bilirubin 1.7 H AST 29 ALT 38 H Alkaline Phosphatase 94 C-Reactive Protein 0.87 H Total Protein 7.1 Albumin 4.2 Triglycerides 116 Cholesterol 134 LDL Cholesterol, Calc 84 HDL Cholesterol 27 TSH 1.31 Blood Type Antibody Screen Narrative Narrative: Per cardiology eval: In the recent EKG, underlying rhythm is sinus tachycardia at 114/Min; lack of any positive complexes all across the precordium 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 Leftward axis.? Overall, similar to the last 2 or so EKGs but different from the very old ones. In the echocardiogram, LVEF 55-60%.? Mild diastolic dysfunction but otherwise unremarkable. Myocardial perfusion imaging without any ischemia.? She had a fixed anteroseptal defect.? Could not differentiate if it is from body habitus or prior infarction. In the cardiac catheterization, normal coronary arteries. Assessment and Plan Assessment Anesthesia Assessment: Chart Reviewed Documented by User: Toy Umaña MD 08/10/22 07:25 [facility] Past Medical History Medical History (Updated 08/03/22 @ 15:16 by Kishore Richardson MD) Anxiety Asthma Hx MRSA infection Hypertension IBS (irritable bowel syndrome) Seasonal allergies Tachycardia Type 2 diabetes mellitus Family History Family History Father Hypertension Diabetes mellitus Mother Hypertension Seizures Brother Hypertension Son No problems noted. Family history of problems with anesthesia: No Surgical History Surgical History H/O: hysterectomy History of facial surgery Hx of section S/P correction of deviated nasal septum Sigmoidoscopy performed History of Problems with Anesthesia: No Social History Social History Household Members Other:: minor child & mother Are you a primary transition of care specialist to a significant other at home: Yes (minor child) Do you presently have visiting nurse or other home services: No Alcohol intake: current Alcohol intake frequency: holidays/special occasions only Patient Tobacco Use Status: Never used Tobacco Use of substances other than those prescribed or required for medical reasons: No Have you been hit, kicked, punched, or otherwise hurt by someone within the past year? If so, by whom?: No Are you DNR?: No Advance Directives: No (mother is primary contact) Advance Directives Information Provided: Yes (as above noted-brochure mailed) Advance Directives on File: No Recently lost weight without trying: No Eating poorly because of decreased appetite: No Nutrition Risks: No Nutritional Risk Patient : No (hysterectomy 2020) FDLMP: had hysterectomy : No Poor oral hygiene: No (bonded tooth upper front) Meds Allergies Allergy/AdvReac Type Severity Reaction Status Date / Time Seasonal Allergies Allergy Intermediate Sneezing Verified 08/03/22 14:46 Home Medications Medication Instructions Recorded Confirmed Last Taken Type albuterol sulfate 90 mcg/actuation 2 puff inhalation Q6H PRN Wheezing 11/27/19 08/03/22 05/25/22 History aerosol inhaler (ProAir HFA) amlodipine 5 mg tablet 5 mg PO DAILY 11/27/19 08/03/22 08/10/22 06:00 History lisinopril 40 mg tablet 40 mg PO DAILY 11/27/19 08/03/22 05/25/22 History cetirizine 10 mg capsule (All Day 10 mg PO DAILY 02/25/20 08/03/22 05/25/22 History Allergy (cetirizine)) ondansetron HCl 4 mg tablet 4 mg PO Q12H PRN Nausea And 05/26/22 08/10/22 Unknown History Vomiting atorvastatin 10 mg tablet 10 mg PO DAILY 08/03/22 08/10/22 Unknown History metformin 500 mg tablet,extended 500 mg PO BID 08/03/22 08/10/22 Unknown History release 24 hr Exam Airway Mallampati Class: II TM Dist: >3cm Neck ROM: Full Assessment and Plan Assessment Anesthesia Assessment: Anesthesia Plan Discussed Final Anesthetic Review Family History of Problems with Anesthesia: No History of Problems with Anesthesia: No ASA Class: III Final Preanesthetic Review: No Changes in Pt Med Stat, Meds/Allgs Chart Reviewed, Consent Obtained/Reviewed and Anes Risks/Benef Reviewed Patient Risk: Intermediate Procedure Risk: Intermediate Anesthetic Plan Anesthetic Plan: GA Disposition: Standard PACU
[2022-08-09 13:08] LABS: COVID-19 Test Negative (Negative); IDNOW Serial# BCCEAD1C
[2022-08-10] VITALS (20 sets, daily range): BP systolic 109–156; BP diastolic 71–111; PULSE 77–110; RESP 15–20; TEMP 36–36.4; O2SAT 91–96
[2022-08-10] MEDS: Lactated Ringers 1,000 ML 999 ML IV (06:47)
[2022-08-10] MEDS: Aprepitant 32 MG/4.4 ML VIAL IVPUSH (06:47)
[2022-08-10 06:53] LABS: Glucose, Whole Blood 95 mg/dL (60-115)
--- NOTE | 2022-08-10 07:37 | P.BOP_ITS ---
Brief Operative Note Date of Service: 08/10/22 Pre-op diagnosis: Morbid obesity with comorbidities (see below) Post-op diagnosis: same (& abdominal adhesions) Procedure: INITIAL PATIENT BMI ON PRESENTATION AT OUR OFFICE: 45.3 kg/m2 LAST BMI BEFORE SURGERY: 40.8 kg/m2 COMORBIDITIES: asthma, non-insulin dependent diabetes, hypertension, hyperlipidemia, liver steatosis, liver fibrosis ?The patient presented to the Weight Management Program with significant obesity that was negatively impacting the patient's comorbidities as listed above.? The program is a phased program with a special focus on preoperative medical weight management to promote substantial weight loss and prepare the patients for the second phase of the program: bariatric surgery. The patient participated in an intensive weekly lifestyle ?intervention and exercise program during which the patient ?has lost between the initial office visit and the last preoperative visit 26lbs, or 10.4% of initial actual body weight. It was deemed appropriate for the patient to now have bariatric surgery. In light of the current Covid-19 pandemic and the well documented strong association of obesity and increased risk of worse outcomes if infected with Covid-19 (REFERENCES: https://pubmed.ncbi.nlm.nih.gov/79378554/ ,? https://pubmed.ncbi.nlm.nih.gov/39020478/ ), any delay in undergoing bariatric surgery may lead to the patient's worsening health condition and increased?risk of more severe Covid-19 disease if infected. In addition a recent?study from [facility] published in [employer] on 02/22/2021 ([email or web address]) found that, among patients with obesity, substantial weight loss achieved with surgery was associated with improved outcomes of COVID-19 infection. The findings suggest that obesity can be a modifiable risk factor for the severity of COVID- 19 infection. In addition, the patient met the BMI-criteria for bariatric surgery based on the BMI on initial presentation. The patient should not be penalized for achieving such weight loss because ?it is not sustainable long-term without surgical intervention and it was achieved in preparation for bariatric surgery ?under my direction and based on my published research ([email or web address]).[email or web address] and? https://www.soard.org/article/[email or web address](29)83030-X/pdf ) ?that a 10% preoperative weight loss improves long-term weight loss after surgery and reduces perioperative complications.? Insurance carriers such as [facility] have endors ed my recommendations ?and have included in their policies criteria to include a 10% preoperative weight loss requirement. PROCEDURE: Esophago-gastroscopy, laparoscopic lysis of adhesions, laparoscopic sleeve gastrectomy and laparoscopic gastropexy INDICATIONS: This is a 46 year-old female who was electively scheduled for laparoscopic, possibly open sleeve gastrectomy. The risks and complications of the procedure were discussed with the patient in advance, particularly the possibility of ; pulmonary embolism; staple line leak; bleeding; GERD; cardiac, pulmonary, or renal complications; as well as long-term problems such as insufficient weight loss, vitamin deficiency, strictures, or ulcers. The patient understood all the risks, and was in agreement to proceed with surgery. DESCRIPTION OF PROCEDURE: After informed consent was obtained from the patient, the patient was given preoperative antibiotics, and was transferred to the operating room. After successful induction of general anesthesia, pneumatic compression devices were placed on both lower extremities. An upper endoscopy was performed next. The oropharynx and esophagus appeared to be within normal limits. There was no diaphragmatic hernia present consistent with the findings of the preoperative upper GI. The stomach was entered. Then after all fluid and air were suctioned and the stomach was fully decompressed, the scope was withdrawn and secured in the mid esophagus. The patient was then prepped and draped in the usual sterile manner, and abdominal access was established at the right upper quadrant with the Jagdish technique. A 12 mm blunt port was inserted, and the abdomen was insufflated with CO2 to a pressure of 15 mmHg. Under direct visualization, additional ports were placed, specifically two 5 mm Versi-step ports to the left upper quadrant, and a 5 mm Versi-Step port to the right upper quadrant. 1% lidocaine plain was used to infiltrate all port sites as well as all fascia defects. There were adhesions in the abdomen from previous hysterectomy involving the omentum and the anterior abdominal wall. They did not interfere with our procedure and therefore they were left intact.. Following that, the patient was placed in a steep reverse Trendelenburg position. An additional 5 mm port was placed to the right flank for the Mediflex retractor that was used to retract the left lobe of the liver. The gastro-esophageal fat pad was opened with the ultrasonic device (Thunderbeat, Olympus) and the anterior esophagus and hiatus were exposed. The angle of His was opened with the ultrasonic device the fundus of the stomach from any diaphragmatic and splenic attachments. I then opened the gastrocolic ligament between the transverse colon and the greater curvature of the stomach with the ultrasonic device to enter the lesser sac and facilitate the ligation of the short gastric vessels. I started at a mid-point along the greater curvature and using the Thunderbeat, all short ju varinder vessels were divided all the way to the angle of His until the left caryn was completely dissected at its entirety. I then divided the gastro-colic ligament distally to a distance of about 3-4 cm proximal to the pylorus. There were extensive congenital adhesions between the pancreas and posterior gastric wall. Those were lysed completely with the ultrasonic device. Adhesiolysis took approximately 45 min to complete. The stomach was then divided transversely with three Endo HEATHER-45 purple and four HEATHER-60 articulating orange loads using the [employer] stapler and loads. Every effort was made that the gastric sleeve had a tubular shape and an even caliber throughout. Once the sleeve resection was completed, the staple line of the gastric sleeve was reinforced with Hemoclips. The resected stomach was retrieved without difficulty from the Jagdish port. A gastropexy was then performed in order to prevent postoperative GERD and partial gastric volvulus. Several interrupted 2.0 Surgidac sutures were placed between the sleeve's staple line and the previously divided greater omentum and gastro-colic ligament using the Endo-Stitch device. ?An upper endoscopy was performed. There was no narrowing at the GE junction. The scope was easily advanced all the way to the pylorus which was clearly visualized. There was no narrowing anywhere and the sleeve's caliber was even throughout. The sleeve's staple line was inspected and there was no evidence of ischemia, bleeding or dehiscence. At that point the gastroscope was withdrawn from the patient?s mouth while we were decompressing the bowel and the stomach from any remaining air. I looked into the lesser sac to see how the sleeve was situating and it was situating well. There was no bleeding from the staple line, spleen, or short gastric vessels. The Mediflex retractor was removed, and the undersurface of the liver was inspected and there was no bleeding. The patient was placed in supine position. I closed the fascial defect of the 12 mm port site with a figure of eight #1 Polysorb suture. Then 30cc Ropivacaine plain with 10 mg of Dexamethasone were used to infiltrate the fascial closure as well as all skin incisions. A total of 7ml Zynrelef was applied in the Jagdish wound. At this point, the abdomen was deflated, all ports were removed under direct vision, and no bleeding was noted from any of the port sites. The skin incisions were irrigated with saline and were closed with 4-0 absorbable monofilament sutures. Steri-Strips and OpSites were used to cover all incisions. The patient was extubated and was transferred in stable condition to the recovery room for further care. I was present and performed all irene parts of the procedure. Ms. Greenfield was the marketing communications assistant. There were no residents to assist with this case. Silvio rFederick MD, PhD, FACS Surgeon: Kevin Frederick MD Anesthesia: GETA, local and other (TAP block and 7ml Zynrelef) Was an Clinical Project Coordinator used for this Procedure?: No Clinical Project Coordinator: Mickie Greenfield Estimated blood loss (mL): 10 IV fluids (mL): 2,500 Urine output (mL): 0 (No Posada to record) Pathology: other (Stomach) Condition: stable Disposition: PACU
--- NOTE | 2022-08-10 07:41 | PM.PNGS ---
Subjective Subjective Date of Service: 08/11/22 Interval history: Feels well. Mild incisional pain. She is tolerating phase 1 bariatric diet Physical Exam Vital Signs: Vital Signs: Last Vital Signs Temp 97.5 F 08/10/22 06:35 Pulse 91 08/10/22 06:41 Resp 16 08/10/22 06:35 BP 142/78 H 08/10/22 06:35 Pulse Ox 96 08/10/22 06:35 O2 Del Method Room Air 08/10/22 06:35 BMI result Body Mass Index 39.1 GI: Inspection: Yes normal to inspection, Yes incision (clean, dry and intact) and Yes obesity Palpation (GI): Soft to palpation Extrem: Right lower extremity: normal to inspection (no calf tenderness) Left lower extremity: normal to inspection (no calf tenderness) Objective Data Active Medications Albuterol Sulfate (Albuterol Sulfate (0.083%) 2.5 Mg/3 Ml Vial.Neb) 2.5 mg INHALE ONCE PRN PRN Reason: Shortness of Breath/Wheezing Fentanyl (Fentanyl Citrate/Pf 100 Mcg/2 Ml Vial) 50 mcg IVPUSH Q5M PRN; Protocol PRN Reason: Pain, Severe (Pain Scale 7-10) Lactated Ringer's (Lr) 1,000 mls @ 100 mls/hr IVCONT .Q10H HAYDEE Lactated Ringer's (Lr) 1,000 mls @ 999 mls/hr IV .Q1H1M [facility] Stop: 08/10/22 08:15 Last Admin: 08/10/22 06:47 Dose: 999 mls/hr Documented By: VALENCIA Ondansetron HCl (Ondansetron Hcl 4 Mg/2 Ml Vial) 4 mg IVPUSH ONCE PRN PRN Reason: Nausea and Vomiting Oxycodone HCl (Oxycodone Hcl Immed Release 5 Mg Tablet) 5 mg PO ONCE PRN PRN Reason: Pain, Severe (Pain Scale 7-10) Labs 08/02/22 08:13 08/02/22 08:13 Labs: Laboratory Results - last 24 hr 08/09/22 08/10/22 12:33 06:49 POC Glucose 95 COVID-19 (PROSPER) Negative COVID-19 Clin Com See Note Procedures Date of Service Date of Service: 08/11/22 Progress Note: A&P Assessment and plan (1) Morbid obesity with BMI of 45.0-49.9, adult: Status: Inactive Assessment and Plan: s/p laparoscopic sleeve gastrectomy, lysis of adhesions, and gastropexy Doing well Will check am labs and if OK the patient will be discharged home (2) Hypertension: Status: Acute (3) Asthma: Status: Acute (4) Type 2 diabetes mellitus: Status: Acute (5) GERD (gastroesophageal reflux disease): Status: Acute (6) Hyperlipidemia: Status: Acute (7) Steatosis, liver: Status: Acute (8) Liver fibrosis: Status: Acute (9) S/P laparoscopic sleeve gastrectomy: Status: Acute (10) Intra-abdominal adhesions: Status: Inactive (11) Congenital intra-abdominal adhesions: Status: Acute Time Spent With Patient Time: Total time managing care of this patient today ____ minutes. Quality Stroke Does the patient have a stroke diagnosis?: No VTE Prior VTE?: No VTE Risk Level:: Surgical - moderate VTE Device Contraindication: N/A - Device Ordered VTE Drug Contraindication: Treatment Not Indicated
--- NOTE | 2022-08-10 10:26 | PHA.MEDREC ---
Pharmacy Consult ? Medication Reconciliation Pharmacy has completed the medication reconciliation. Reviewed med rec done by nursing
[2022-08-10 10:28] LABS: Hematocrit 41.9 % (37.0-47.0); Hemoglobin 13.6 g/dl (12.0-16.0)
[2022-08-10 10:47] LABS: Anion Gap 14 (12-20); Blood Urea Nitrogen 9 mg/dL (9-16); Calcium 9.2 mg/dL (8.4-10.2); Carbon Dioxide 26 mmol/L (22-29); Chloride 106 mmol/L (96-108); Creatinine Clr Calc Pharmacy 115.8; Estimated Glomerular Filt Rate > 60; Glucose Random 161 mg/dL (60-115); Potassium 3.5 mmol/L (3.3-5.1); Sodium 142 mmol/L (135-145)
[2022-08-10] MEDS: ondansetron HCL 4 MG/2 ML VIAL IVPUSH ×2 (11:18→22:18)
--- NOTE | 2022-08-10 14:50 | P.DS_ITS ---
DS: Providers Provider Date of Service: 08/11/22 Primary care physician: Colton Castro III, MD DS: Diagnosis Discharge Diagnosis (1) Morbid obesity with BMI of 45.0-49.9, adult: Status: Inactive (2) Hypertension: Status: Acute (3) Asthma: Status: Acute (4) Type 2 diabetes mellitus: Status: Acute (5) GERD (gastroesophageal reflux disease): Status: Acute (6) Hyperlipidemia: Status: Acute (7) Steatosis, liver: Status: Acute (8) Liver fibrosis: Status: Acute (9) S/P laparoscopic sleeve gastrectomy: Status: Acute (10) Intra-abdominal adhesions: Status: Inactive (11) Congenital intra-abdominal adhesions: Status: Acute DS: Summary Hospital Course Hospital Course: ADMITTING DIAGNOSIS: morbid obesity, HTN, DM, IBS DISCHARGE DIAGNOSIS: same, s/p laparoscopic sleeve gastrectomy PAST SURGICAL HISTORY: hysterectomy, section, nasal septum PROCEDURE: upper endoscopy, laparoscopic sleeve gastrectomy DISCHARGE SUMMARY: History of Present Illness: The patient is a 46 year-old woman with a BMI of 45.7 kg/m2 and associated co- morbidities as described above. The patient had extensive work-up, lost 32 lbs preoperatively and was electively scheduled for laparoscopic, possible open sleeve gastrectomy and gastropexy. Risks and complications of the surgery were discussed with the patient in advance, particularly the possibility of , pulmonary embolism, anastomotic leak, bleeding, bowel injury, GERD, cardiac, renal or pulmonary complications. The patient understood all the risks and was in agreement with the surgical plan. Hospital Course: The patient underwent an uneventful laparoscopic sleeve gastrectomy with gastropexy on the day of admission. Postoperatively, the patient was transferred to the surgical floor. The patient received IV Acetaminophen and IV dilaudid for pain control. Patient was started on bariatric phase 1 diet POD #0. On postoperative day one, the patient was feeling well without nausea, vomiting, fevers, or tachycardia. The patient had some mild incisional pain and the abdomen was soft. On the morning of postoperative day one, the patient was continued on 1 ounce of water or ice every half hour. During the day, the patient did fairly well, having some incisional pain, but able to ambulate adequately and to tolerate liquids well. Since the patient is doing well, we decided that the patient was ready to be discharged. The patient was given instructions to follow-up with me next week and to call my office for any fever over 101, persistent abdominal pain, nausea, vomiting, GERD, symptoms of DVT such as calf tenderness, or leg swelling, or pulmonary embolism such as chest pain or shortness of breath. The patient was also instructed to drink 40-60 ounces of liquids per day using the 1-ounce cups. The patient had been given prescriptions for Tylenol for pain, Zofran prn for nausea, and pantoprazole and carafate previously. The patient was encouraged to ambulate and use the incentive spirometer. The patient was allowed to shower, but no baths, and encouraged to stay active at home. All of these instructions were given to the patient personally. All questions were answered and the patient understood all instructions, the instructions were also given to the patient in print. Time Spent with Patient Time attestation: Total time managing care of this patient today ____ minutes. Discharge coordination time: Less than 30 minutes Quality: Safe Use of Opioids Does Pt have an Active Cancer Diagnosis on the Problem List?: No Quality: Stroke Does the patient have a stroke diagnosis?: No Physical Exam Vital Signs: Vital Signs: Last Vital Signs Temp 97.2 F 08/10/22 12:44 Pulse 88 08/10/22 12:44 Resp 18 08/10/22 12:44 BP 145/79 H 08/10/22 12:44 Pulse Ox 91 L 08/10/22 12:44 O2 Del Method Nasal Cannula 08/10/22 12:44 O2 Flow Rate 4 08/10/22 12:44 FiO2 41 08/10/22 12:20 BMI result Body Mass Index 39.1 DS: Data Data Completed and Pending Pending studies at discharge: Pending at discharge 08/10/22 09:08 Surgical [PTH] Routine Labs on day of discharge: Laboratory Results - last 24 hr 08/10/22 08/10/22 08/10/22 06:49 10:17 10:17 Hgb 13.6 Hct 41.9 Sodium 142 Potassium 3.5 Chloride 106 Carbon Dioxide 26 Anion Gap 14 BUN 9 Creatinine 0.70 Estim Creat Clear Calc 115.8 Estimated GFR > 60 POC Glucose 95 Random Glucose 161 H Calcium 9.2 Discharge Plan Discharge Patient Disposition: Home, Self-Care Referrals: Colton Castro III, MD [Primary Care Provider] - 1 Week Discharge Medications: Continued pantoprazole 40 mg tablet,delayed release (DR/EC) 40 mg PO DAILY Qty: 90 0RF ondansetron HCl 4 mg tablet 4 mg PO Q12H PRN (Reason: Nausea And Vomiting) Rx Instructions: Only take one every 12 hours as needed if you have nausea albuterol sulfate [ProAir HFA] 90 mcg/actuation HFA aerosol inhaler 2 puff inhalation Q6H PRN (Reason: Wheezing) All Day Allergy (cetirizine) 10 mg capsule 10 mg PO DAILY (DME) blood pressure monitor Kit See Rx Instructions .ROUTE .MEDSUPPLY Qty: 1 0RF Rx Instructions: As directed sucralfate 100 mg/mL suspension 10 ml PO BID Qty: 400 2RF atorvastatin 10 mg tablet 10 mg PO DAILY lorazepam [Ativan] 0.5 mg tablet 0.5 mg PO ONCE Qty: 2 0RF Rx Instructions: Take in the morning of surgery with a small sip of water Held amlodipine 5 mg tablet 5 mg PO DAILY Hold Instructions: Resume on 08/12/22. Check your blood pressure every evening and send it to Dr. Frederick. Don't take this medication before he gets back to you. Don't take the medication if blood pressure is below 120/70. lisinopril 40 mg tablet 40 mg PO DAILY Hold Instructions: Resume on 08/12/22. Check your blood pressure every evening and send it to Dr. Frederick. Don't take this medication before he gets back to you. Don't take the medication if blood pressure is below 120/70. Discontinued vitamin A 3,000 mcg (10,000 unit) capsule 1 cap PO DAILY Qty: 90 0RF phentermine 37.5 mg capsule 37.5 mg PO DAILY Qty: 14 0RF Rx Instructions: must administer 30 minutes before or 1-2 hours after breakfast metformin 500 mg tablet extended release 24 hr 500 mg PO BID polyethylene glycol 3350 [Miralax] 17 gram powder in packet 17 g PO DAILY Qty: 14 0RF Rx Instructions: Mix each packet with 8oz of water, Crystal light, or Gatorade zero, or Propel and do 7 packets on 08/08/22 and another 7 packets on 08/09/22 Discharge Orders: Discharge Order (Routine); Ordered 06/15/23 Ordered By: Kevin Frederick Discharge Date/Time: 08/11/22 10:05
[2022-08-10] MEDS: Famotidine/PF 20 MG/2 ML VIAL IVPUSH (19:39)
[2022-08-10] MEDS: Lactated Ringers 1,000 ML 100 ML IVCONT (22:18)
[2022-08-10] MEDS: Acetaminophen 1,000 MG/100 ML PIGGYBACK 400 MG IV (22:18)
[2022-08-11 04:00] VITALS: BP 166/75; PULSE 73; RESP 17; TEMP 36.5; O2SAT 95
[2022-08-11] MEDS: Acetaminophen 1,000 MG/100 ML PIGGYBACK 400 MG IV (04:18)
[2022-08-11 07:05] VITALS: BP 160/78; PULSE 90; RESP 20; TEMP 36.4; O2SAT 95
[2022-08-11] MEDS: lisinopriL 40 MG TABLET PO (07:17)
[2022-08-11] MEDS: amLODIPine Besylate 5 MG TABLET PO (07:17)
[2022-08-11] MEDS: Famotidine/PF 20 MG/2 ML VIAL IVPUSH (07:17)
[2022-08-11 07:26] VITALS: O2SAT 95
--- NOTE | 2022-08-11 08:32 | MHC.CM.PN ---
CM MET WITH PT AT BEDSIDE. PT LIVES WITH SON. INDEPENDENT AT BASELINE. + COVID [facility] HAS hc
--- NOTE | 2022-08-11 08:37 | MHC.CM.PN ---
CM MET WITH PT AT BEDSIDE. LIVES WITH SON. INDEPENDENT AT BASELINE. +COVID [facility] HAS HCP AT HOME BUT WOULD LIKE TO DO A NEW ONE. PCP DR. LUND DP: PT HAS BEEN MEDICALLY CLEARED FOR DC HOME, NO SERVICES. RN AWARE. FATHER WILL TRANSPORT HOME.
--- NOTE | 2022-08-11 14:15 | HO.POSTANES ---
Post Anesthesia Evaluation Post Anesthesia Evaluation Date of Service: 08/11/22 Vital Signs: Vital Signs Temp Pulse Resp BP Pulse Ox O2 Del Method 08/11/22 07:26 95 Room Air 08/11/22 07:05 97.6 F 90 20 160/78 H 95 Room Air 08/11/22 04:00 97.7 F 73 17 166/75 H 95 Room Air Anesthesia: General Endotracheal-GETA Mental Status: Awake Pain Control: Satisfactory Nausea/Vomiting: None Hydration: Adequate Anesthesia-Related Issues: No Anes. Related Issues
== END 2022-08-11 10:05 | disposition home or self-care (01) ==
LOC: HO.SSS 10:08 → HO.S3 11:01
PROVIDERS: Physician Assistant; Physician Assistant Surgical; PCP Internal Medicine; Visit Provider Surgery
PROC: (CPT 43845; principal; 2022-08-10 07:30)
DX: E66.01 Morbid (severe) obesity due to excess calories (principal); Z68.41 Body mass index [BMI] 40.0-44.9, adult; Q43.3 Congenital malformations of intestinal fixation; K66.0 Peritoneal adhesions (postprocedural) (postinfection); K21.9 Gastro-esophageal reflux disease without esophagitis; K76.0 Fatty (change of) liver, not elsewhere classified; K74.00 Hepatic fibrosis, unspecified; E78.5 Hyperlipidemia, unspecified; I10 Essential (primary) hypertension; E11.9 Type 2 diabetes mellitus without complications; J45.909 Unspecified asthma, uncomplicated; E53.8 Deficiency of other specified B group vitamins; K58.9 Irritable bowel syndrome, unspecified; R00.0 Tachycardia, unspecified; F41.1 Generalized anxiety disorder; F43.20 Adjustment disorder, unspecified; R94.31 Abnormal electrocardiogram [ECG] [EKG]; Z86.14 Personal history of Methicillin resistant Staphylococcus aureus infection; Z79.84 Long term (current) use of oral hypoglycemic drugs; Z79.899 Other long term (current) drug therapy; Z98.890 Other specified postprocedural states; Z20.822 Contact with and (suspected) exposure to COVID-19
CPT/HCPCS: 43775; 43659; 49329; 36415; 80048; 80053; 80061; 82947; 83036; 83525; 84443; 85014; 85018; 85025; 85610; 85730; 86140; 86850; 86900; 86901; 87635; 88304; 88305; 88307; 88342; A4649; C9088; C9145; J0131; J0690; J1100; J1170; J2250; J2405; J2795; J3010

== ENCOUNTER → 2022-08-16 10:38 | Outpatient (BNVA) | payer OTHER, SELFPAY | PROVIDERS: PCP Internal Medicine; Visit Provider Physician Assistant Surgical ==

== ENCOUNTER 2022-09-07 15:30 | Outpatient (AMB) | payer OTHER, SELFPAY ==
--- NOTE | 2022-09-07 15:36 | A.OFFVIS_ITS ---
Intake VS Expanded 09/07/22 15:55 Height 5 ft 3 in Weight 203 lb BMI 36.0 Intake Visit Reasons: VIDEO PO LSG 08/10/22 Allergies Seasonal Allergies Allergy (Intermediate, Verified 08/16/22 11:21) Sneezing Medication List - Last Reconciled 09/07/22 by Mickie Greenfield PA-C albuterol sulfate 90 mcg/actuation (ProAir HFA) 2 puffs inhalation Q6H PRN amlodipine 5 mg PO DAILY atorvastatin 10 mg PO DAILY blood pressure monitor As directed cetirizine (All Day Allergy (cetirizine)) 10 mg PO DAILY docusate sodium (Colace) 100 mg PO DAILY pantoprazole 40 mg PO DAILY psyllium husk (Metamucil) 1 tbsp PO DAILY sucralfate 10 mL PO BID HPI HPI Comments History of Present Illness Details 46 yo woman now 4 weeks s/p LSG with Gloria Geiger study patient. Patient denies n/v/abd pain or reflux. 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 Has Propel 0 one packet per day. Started colace and metamucil daily about 2 weeks ago. Now BM once per week (has history of IBS). Has to strain to have BM, will increase to bid colace. Meal plan 10 am - 2 scoops 4;1 almond milk 2pm - 4:1 2 scoops 6pm - Orgain with almond milk - Exercise - treadmill - 4-5 d/wk, speed 3-3.5, incline - 5-6, franco 300 calories. Walks outside also. [facility] Medical History (Updated 08/16/22 @ 12:06 by EDER Colindres) Adjustment disorder, unspecified Anxiety Asthma BMI 45.0-49.9, adult Body mass index (BMI) of 40.0 to 44.9 in adult Hx MRSA infection Hypertension IBS (irritable bowel syndrome) Intra-abdominal adhesions Morbid obesity with BMI of 45.0-49.9, adult Preoperative cardiovascular examination Seasonal allergies Tachycardia Type 2 diabetes mellitus Vitamin B12 deficiency Surgical History H/O: hysterectomy History of facial surgery Hx of section S/P correction of deviated nasal septum Sigmoidoscopy performed Family History Father Hypertension Diabetes mellitus Mother Hypertension Seizures Brother Hypertension Son No problems noted. Social History Household Members: Family Household Members Other:: minor child & mother Housing: Apartment Are you a primary housekeeper caregiver to a significant other at home: Yes (minor child) Do you presently have visiting nurse or other home services: No Alcohol intake: current Alcohol intake frequency: holidays/special occasions only Patient Tobacco Use Status: Never used Tobacco service: No Current occupational status: employed Assessment & Plan Assessment & Plan (1) S/P laparoscopic sleeve gastrectomy: Code(s): Z98.84 - Bariatric surgery status Plan: Meal plan: can alternate times of each shake. Pedrito trial completed. 10 am 2 pm - 4:1 shakes 4 pm- 6pm bar 7 pm - Orgain shake Colace bid Exercise - treadmill - 5d/wk - speed 3.0 - incline 1 - 7 - 400 calories. other days speed 3.5, incline 3-6 - 400 calories. Start weights at 6weeks post op, or TBP videos - 3d/week Next appt with me 4 weeks. Medications: Discontinued ondansetron HCl Only take one every 12 hours as needed if you have nausea 4 mg PO Q12H 20 tabs 0RF nausea and vomiting R11.0 - Nausea Telehealth Telehealth Location of provider rendering services: practice address Location of patient: address on file Patient Identification confirmed using: Name, : Yes Telehealth method: video Patient verbally consented to treatment: Yes Patient verbally consented to billing insurance company: Yes Patient informed of any privacy concerns related to visit: Yes Coding Level of Care Code Global (42143) Diagnoses S/P laparoscopic sleeve gastrectomy Z98.84
[2022-09-07 15:55] VITALS: BMI 36.0
== END 2022-09-07 16:21 | disposition home or self-care (01) ==
LOC: HO.HBS 16:19
PROVIDERS: PCP Internal Medicine; Visit Provider Physician Assistant
DX: Z98.84 Bariatric surgery status (principal)
CPT/HCPCS: 99024

== ENCOUNTER → 2022-09-07 15:30 | Outpatient (BNVA) | payer OTHER, SELFPAY | PROVIDERS: PCP Internal Medicine; Visit Provider Physician Assistant | DX: Z98.84 Bariatric surgery status (principal) ==

== ENCOUNTER 2022-09-13 15:38 | Outpatient (AMB) | payer OTHER, SELFPAY ==
[2022-09-13 15:54] VITALS: BP 142/68; PULSE 76; TEMP 36.7; O2SAT 96; BMI 35.8
--- NOTE | 2022-09-13 15:54 | A.OFFVIS_ITS ---
Intake VS Expanded 09/13/22 15:54 Height 5 ft 3 in Weight 202 lb BMI 35.8 BP 142/68 H Blood Pressure Location Rt brachial Blood Pressure Position Sitting Pulse 76 Pulse Source Pulse Oximeter Temp 98.1 F Temperature Source Temporal Artery Scan Pulse Oximetry 96 Oxygen Delivery Method Room Air Body Fat 78.8 Body Fat Percentage 39.0 Free Fat Mass 123.2 Muscle Mass 117.0 Visceral Mass 10.0 Water Mass 88.0 BMR 1,695 Intake Visit Reasons: (OV) PO LSG 08/10/22 Allergies Seasonal Allergies Allergy (Intermediate, Verified 09/13/22 15:57) Sneezing Medication List - Last Reconciled 09/13/22 by EDER Colindres albuterol sulfate 90 mcg/actuation (ProAir HFA) 2 puffs inhalation Q6H PRN amlodipine 5 mg PO DAILY atorvastatin 10 mg PO DAILY blood pressure monitor As directed cetirizine (All Day Allergy (cetirizine)) 10 mg PO DAILY docusate sodium (Colace) 100 mg PO DAILY pantoprazole 40 mg PO DAILY psyllium husk (Metamucil) 1 tbsp PO DAILY sucralfate 10 mL PO BID HPI HPI Comments History of Present Illness Details Pt presents in followup today for concern of infected incisions. She was started on doxycyline by PCP. Started to notice signs of infection on Monday- scab came off and noticed some oozing. No fevers. [facility] Medical History (Updated 08/16/22 @ 12:06 by EDER Colindres) Adjustment disorder, unspecified Anxiety Asthma BMI 45.0-49.9, adult Body mass index (BMI) of 40.0 to 44.9 in adult Hx MRSA infection Hypertension IBS (irritable bowel syndrome) Intra-abdominal adhesions Morbid obesity with BMI of 45.0-49.9, adult Preoperative cardiovascular examination Seasonal allergies Tachycardia Type 2 diabetes mellitus Vitamin B12 deficiency Surgical History H/O: hysterectomy History of facial surgery Hx of section S/P correction of deviated nasal septum Sigmoidoscopy performed Family History Father Hypertension Diabetes mellitus Mother Hypertension Seizures Brother Hypertension Son No problems noted. Social History Household Members: Family Household Members Other:: minor child & mother Housing: Apartment Are you a primary home health aide caregiver to a significant other at home: Yes (minor child) Do you presently have visiting nurse or other home services: No Alcohol intake: current Alcohol intake frequency: holidays/special occasions only Patient Tobacco Use Status: Never used Tobacco service: No Current occupational status: employed Physical Exam Const General: cooperative, comfortable and no acute distress Orientation/consciousness: patient oriented x3 GI Other: soft, nontender, nondistended, small incision left of center with reactive surrounding erythema but no expanding cellulitis, fibrinous tissue at wound bed gently debrided with cotton tipped swab to reveal healthy red wound bed underneath, no purulence, no drainage Neuro General: patient oriented x3 Assessment & Plan Assessment & Plan (1) Obesity: Code(s): E66.9 - Obesity, unspecified (2) S/P laparoscopic sleeve gastrectomy: Code(s): Z98.84 - Bariatric surgery status Plan If an infection was present it appears to be improving. Pt can shower daily, gentle soap and water, keep covered with Bandaid, can use triple antibiotic ointment at home. No swimming or tub baths. She can continue abx, has a history of MRSA, will notify us if wound appears to worsen. She asked about changing her protein bars to a lower sugar version; suggested Atkins or Fitcrunch brands. RTC at previously scheduled appt next month. Patient is obese and is not considered stable at this time. I spent a total of 30 minutes reviewing/updating records, examining the patient and counseling the patient on weight management as detailed above. Medications: Discontinued ondansetron HCl Only take one every 12 hours as needed if you have nausea 4 mg PO Q12H 20 tabs 0RF nausea and vomiting R11.0 - Nausea Coding Level of Care Code Est Pt Level 4 (66773) Diagnoses Obesity E66.9 S/P laparoscopic sleeve gastrectomy Z98.84
== END 2022-09-13 16:26 | disposition home or self-care (01) ==
PROVIDERS: PCP Internal Medicine; Visit Provider Physician Assistant Surgical
DX: E66.9 Obesity, unspecified (principal); Z68.35 Body mass index [BMI] 35.0-35.9, adult; Z90.3 Acquired absence of stomach [part of]; Z98.84 Bariatric surgery status
CPT/HCPCS: 99024

== ENCOUNTER → 2022-09-13 15:38 | Outpatient (BNVA) | payer OTHER, SELFPAY | PROVIDERS: PCP Internal Medicine; Visit Provider Physician Assistant Surgical ==

== ENCOUNTER 2022-10-06 16:15 | Outpatient (AMB) | payer OTHER, SELFPAY ==
--- NOTE | 2022-10-06 15:51 | A.OFFVIS_ITS ---
Intake VS Expanded 10/06/22 15:55 Height 5 ft 3 in Weight 197 lb 4 oz BMI 34.9 Intake Visit Reasons: VIDEO PO LSG 08/10/22 Allergies Seasonal Allergies Allergy (Intermediate, Verified 09/13/22 15:57) Sneezing Medication List - Last Reconciled 10/06/22 by Mickie Greenfield PA-C albuterol sulfate 90 mcg/actuation (ProAir HFA) 2 puffs inhalation Q6H PRN amlodipine 5 mg PO DAILY atorvastatin 10 mg PO DAILY blood pressure monitor As directed cetirizine (All Day Allergy (cetirizine)) 10 mg PO DAILY docusate sodium (Colace) 100 mg PO BID pantoprazole 40 mg PO DAILY psyllium husk (Metamucil) 1 tbsp PO DAILY sucralfate 10 mL PO BID HPI HPI Comments History of Present Illness Details Pt is now 8 weeks s/p LSG, had wound infection which has now healed. No n/v/abd pain or reflux. 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 Wants to start eating food now. Meal plan: 4:1 shake 2 scoops with UAM at 9am and 1pm bar - 5-7pm Orgain shake 8pm Exercise - walks -4 miles or less , for an hour 400 calories, 2 days per week. Gym - treadmill - franco 350 calories 5d/ week. Did not go this week. [facility] Medical History (Updated 08/16/22 @ 12:06 by EDER Colindres) Adjustment disorder, unspecified Anxiety Asthma BMI 45.0-49.9, adult Body mass index (BMI) of 40.0 to 44.9 in adult Hx MRSA infection Hypertension IBS (irritable bowel syndrome) Intra-abdominal adhesions Morbid obesity with BMI of 45.0-49.9, adult Preoperative cardiovascular examination Seasonal allergies Tachycardia Type 2 diabetes mellitus Vitamin B12 deficiency Surgical History H/O: hysterectomy History of facial surgery Hx of section S/P correction of deviated nasal septum Sigmoidoscopy performed Family History Father Hypertension Diabetes mellitus Mother Hypertension Seizures Brother Hypertension Son No problems noted. Social History (Reviewed 09/13/22 @ 15:58 by SNEHAL Farah Household Members: Family Household Members Other:: minor child & mother Housing: Apartment Are you a primary pediatric critical care nurse to a significant other at home: Yes (minor child) Do you presently have visiting nurse or other home services: No Alcohol intake: current Alcohol intake frequency: holidays/special occasions only Patient Tobacco Use Status: Never used Tobacco service: No Current occupational status: employed Assessment & Plan Assessment & Plan (1) S/P laparoscopic sleeve gastrectomy: Code(s): Z98.84 - Bariatric surgery status Plan: 8 weeks post op, using MOM every 3rd day for constipation. Slow weight loss of 5 lbs per week only. Meal plan - does not eat meat or eggs 9am - 4:1 2 scoops UAM 1pm - same shake 5pm - 1 oz fish or 4 tbl JUST EGG, in 1 week add 1 oz cooked vegetable 7pm - bar Exercise- change to TBP 3 d/ week, walk 3 days for 400 calories. Next appt in 4 weeks. Medications: Discontinued 2 ondansetron HCl Only take one every 12 hours as needed if you have nausea 4 mg PO Q12H 20 tabs 0RF nausea and vomiting R11.0 - Nausea Telehealth Telehealth Location of provider rendering services: practice address Location of patient: address on file Patient Identification confirmed using: Name, : Yes Telehealth method: video Patient verbally consented to treatment: Yes Patient verbally consented to billing insurance company: Yes Patient informed of any privacy concerns related to visit: Yes Coding Level of Care Code Global (85255) Diagnoses S/P laparoscopic sleeve gastrectomy Z98.84
[2022-10-06 15:55] VITALS: BMI 34.9
== END 2022-10-06 16:39 | disposition home or self-care (01) ==
LOC: HO.HBS 16:15
PROVIDERS: PCP Internal Medicine; Visit Provider Physician Assistant
DX: Z98.84 Bariatric surgery status (principal)
CPT/HCPCS: 99024

== ENCOUNTER → 2022-10-06 16:15 | Outpatient (BNVA) | payer OTHER, SELFPAY | PROVIDERS: PCP Internal Medicine; Visit Provider Physician Assistant ==

== ENCOUNTER 2022-11-01 15:19 | Outpatient (AMB) | payer OTHER, SELFPAY ==
--- NOTE | 2022-11-01 14:36 | A.OFFVIS_ITS ---
Intake VS Expanded 11/01/22 14:56 Height 5 ft 3 in Weight 191 lb BMI 33.8 Intake Visit Reasons: VIDEO PO LSG 08/10/22 Allergies Seasonal Allergies Allergy (Intermediate, Verified 09/13/22 15:57) Sneezing Medication List - Last Reconciled 11/01/22 by Mickie Greenfield PA-C albuterol sulfate 90 mcg/actuation (ProAir HFA) 2 puffs inhalation Q6H PRN amlodipine 5 mg PO DAILY atorvastatin 10 mg PO DAILY blood pressure monitor As directed cetirizine (All Day Allergy (cetirizine)) 10 mg PO DAILY docusate sodium (Colace) 100 mg PO BID pantoprazole 40 mg PO DAILY psyllium husk (Metamucil) 1 tbsp PO DAILY HPI HPI Comments History of Present Illness Details Pt is now 3 months s/p LSG. 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 Had URI last week and did not exercise. No nausea or emesis. BM's normal now. TBWL is now 47.4 lbs or 19.9%. Still taking amlodipine 2.5mg. September 2022 ---Cholesterol 107, TRG 83. HDL 37, LDL 54 Hgb A1C - 5.8% 9am - 4:1 2 scoops with UAM, over 2 hours 1pm - same shake 6pm - 1 oz protein - just egg or shrimp or cod with 1 oz cooked broccoli, mushroom or asparagus bar every night. Exercise - has restarted walking on treadmill for 45 minutes, plan for gym 4-5 d/ week. And is starting ST 3 d/ week. [facility] Medical History (Updated 08/16/22 @ 12:06 by EDER Colindres) Adjustment disorder, unspecified Anxiety Asthma BMI 45.0-49.9, adult Body mass index (BMI) of 40.0 to 44.9 in adult Hx MRSA infection Hypertension IBS (irritable bowel syndrome) Intra-abdominal adhesions Morbid obesity with BMI of 45.0-49.9, adult Preoperative cardiovascular examination Seasonal allergies Tachycardia Type 2 diabetes mellitus Vitamin B12 deficiency Surgical History H/O: hysterectomy History of facial surgery Hx of section S/P correction of deviated nasal septum Sigmoidoscopy performed Family History Father Hypertension Diabetes mellitus Mother Hypertension Seizures Brother Hypertension Son No problems noted. Social History Household Members: Family Household Members Other:: minor child & mother Housing: Apartment Are you a primary home care nurse to a significant other at home: Yes (minor child) Do you presently have visiting nurse or other home services: No Alcohol intake: current Alcohol intake frequency: holidays/special occasions only Patient Tobacco Use Status: Never used Tobacco service: No Current occupational status: employed Assessment & Plan Assessment & Plan (1) S/P laparoscopic sleeve gastrectomy: Code(s): Z98.84 - Bariatric surgery status Plan: TBWL of 47.4 lbs or 19.9%. Will discuss stopping cholesterol meds with her PCP office. Increase dinner to 2 oz protein, 1 oz veg cooked or raw vegetable stop or decrease bar in evening Continue cardio and ST - encouraged her to sned me her wights and questions. Next appt in 6 weeks with me. (2) Obesity: Code(s): E66.9 - Obesity, unspecified Medications: Discontinued ondansetron HCl Only take one every 12 hours as needed if you have nausea 4 mg PO Q12H 20 tabs 0RF nausea and vomiting R11.0 - Nausea Telehealth Telehealth Location of provider rendering services: practice address Location of patient: address on file Patient Identification confirmed using: Name, : Yes Telehealth method: video Patient verbally consented to treatment: Yes Patient verbally consented to billing insurance company: Yes Patient informed of any privacy concerns related to visit: Yes Coding Level of Care Code Global (81080) Diagnoses S/P laparoscopic sleeve gastrectomy Z98.84 Obesity E66.9
[2022-11-01 14:56] VITALS: BMI 33.8
== END 2022-11-01 15:20 | disposition home or self-care (01) ==
LOC: HO.HBS 15:19
PROVIDERS: PCP Internal Medicine; Visit Provider Physician Assistant
DX: E66.9 Obesity, unspecified (principal); Z68.33 Body mass index [BMI] 33.0-33.9, adult; Z90.3 Acquired absence of stomach [part of]; Z98.84 Bariatric surgery status
CPT/HCPCS: 99024

== ENCOUNTER → 2022-11-01 15:19 | Outpatient (BNVA) | payer OTHER, SELFPAY | PROVIDERS: PCP Internal Medicine; Visit Provider Physician Assistant | DX: Z98.84 Bariatric surgery status (principal); E66.9 Obesity, unspecified ==

== ENCOUNTER 2023-01-05 14:30 | Outpatient (AMB) | payer OTHER, SELFPAY ==
--- NOTE | 2023-01-05 14:36 | MHC.OFFVISWM ---
Intake VS Expanded 01/05/23 14:42 Height 5 ft 3 in Weight 189 lb 8 oz BMI 33.6 Intake Visit Reasons: VIDEO PO LSG 08/10/22 Allergies Seasonal Allergies Allergy (Intermediate, Verified 09/13/22 15:57) Sneezing Medication List - Last Reconciled 01/05/23 by Mickie Greenfield PA-C albuterol sulfate 90 mcg/actuation (ProAir HFA) 2 puffs inhalation Q6H PRN amlodipine 5 mg PO DAILY atorvastatin 10 mg PO DAILY blood pressure monitor As directed cetirizine (All Day Allergy (cetirizine)) 10 mg PO DAILY psyllium husk (Metamucil) 1 tbsp PO DAILY HPI HPI Comments History of Present Illness Details Pt is 5 months s/p LSG, no no n/v/reflux or abd pain. BP's at home 120/70- 80 s. Was BP elevated to 160 ps in PCP office yesterday - under duress. Meal plan - trying to do 2 shakes and 1 meal per day. Is bored with shakes, doesn't feel like eating - not worth it in such small amounts . Went off meal plan recently. When given the choice decided not to stop them. Works out at home - [employer] 3 mile videos -5- 6 d/week. Also does 5-10 minute HIT Post op complications: none JO: never DM: = resolved HTN:- still on meds Hyperlipidemia: resolved GERD: 0, Satisfaction with present condition - satisfied ___ Not satisfied ___ PFSH Medical History (Updated 08/16/22 @ 12:06 by EDER Colindres) Intra-abdominal adhesions Preoperative cardiovascular examination Tachycardia Hx MRSA infection Vitamin B12 deficiency Adjustment disorder, unspecified Morbid obesity with BMI of 45.0-49.9, adult BMI 45.0-49.9, adult Body mass index (BMI) of 40.0 to 44.9 in adult Asthma Hypertension Seasonal allergies Anxiety IBS (irritable bowel syndrome) Type 2 diabetes mellitus Surgical History H/O: hysterectomy History of facial surgery Hx of section S/P correction of deviated nasal septum Sigmoidoscopy performed Family History Father Hypertension Diabetes mellitus Mother Hypertension Seizures Brother Hypertension Son No problems noted. Social History Household Members: Family Household Members Other:: minor child & mother Housing: Apartment Are you a primary transitions rn care coordinator to a significant other at home: Yes (minor child) Do you presently have visiting nurse or other home services: No Alcohol intake: current Alcohol intake frequency: holidays/special occasions only Patient Tobacco Use Status: Never used Tobacco service: No Current occupational status: employed Physical Exam GI Inspection: Yes Abdominal panniculus present and Yes scar (all healed well) Assessment & Plan Assessment & Plan (1) Obesity: Code(s): E66.9 - Obesity, unspecified Plan: Wakes at 6:30 am 9:30 - 4:1 with Metamucil 12:30 - 4:1 - with ice and spice 6pm - = 6 forks of protein, 4 forks of veg raw or cooked Appt with Monica this month Change to TBP videos - text me next week with results of this. Referred for Peer support groups per patient. Next appt with me at 9 months - continue texting me with weights. Patient is still obese and is not considered stable at this time. I spent 30 minutes in total speaking with the patient via video conference counseling , reviewing records and charting in patients chart. . (2) S/P laparoscopic sleeve gastrectomy: Code(s): Z98.84 - Bariatric surgery status Orders: Orders IRON PROFILE Today E66.9 - Obesity, unspecified, E78.5 - Hyperlipidemia, unspecified, I10 - Essential (primary) hypertension, K76.0 - Fatty (change of) liver, not elsewhere classified, Z98.84 - Bariatric surgery status Complete Blood Count Auto Diff Today E66.9 - Obesity, unspecified, E78.5 - Hyperlipidemia, unspecified, I10 - Essential (primary) hypertension, K76.0 - Fatty (change of) liver, not elsewhere classified, Z98.84 - Bariatric surgery status Zinc Today E66.9 - Obesity, unspecified, E78.5 - Hyperlipidemia, unspecified, I10 - Essential (primary) hypertension, K76.0 - Fatty (change of) liver, not elsewhere classified, Z98.84 - Bariatric surgery status Comprehensive Met. Panel Today E66.9 - Obesity, unspecified, E78.5 - Hyperlipidemia, unspecified, I10 - Essential (primary) hypertension, K76.0 - Fatty (change of) liver, not elsewhere classified, Z98.84 - Bariatric surgery status Vitamin B1 Today E66.9 - Obesity, unspecified, E78.5 - Hyperlipidemia, unspecified, I10 - Essential (primary) hypertension, K76.0 - Fatty (change of) liver, not elsewhere classified, Z98.84 - Bariatric surgery status Ferritin Today E66.9 - Obesity, unspecified, E78.5 - Hyperlipidemia, unspecified, I10 - Essential (primary) hypertension, K76.0 - Fatty (change of) liver, not elsewhere classified, Z98.84 - Bariatric surgery status TSH reflex Free T4 Today E66.9 - Obesity, unspecified, E78.5 - Hyperlipidemia, unspecified, I10 - Essential (primary) hypertension, K76.0 - Fatty (change of) liver, not elsewhere classified, Z98.84 - Bariatric surgery status Insulin Today E66.9 - Obesity, unspecified, E78.5 - Hyperlipidemia, unspecified, I10 - Essential (primary) hypertension, K76.0 - Fatty (change of) liver, not elsewhere classified, Z98.84 - Bariatric surgery status Lipid Panel Today E66.9 - Obesity, unspecified, E78.5 - Hyperlipidemia, unspecified, I10 - Essential (primary) hypertension, K76.0 - Fatty (change of) liver, not elsewhere classified, Z98.84 - Bariatric surgery status Vitamin B12 and Folate Today E66.9 - Obesity, unspecified, E78.5 - Hyperlipidemia, unspecified, I10 - Essential (primary) hypertension, K76.0 - Fatty (change of) liver, not elsewhere classified, Z98.84 - Bariatric surgery status Vitamin A Today E66.9 - Obesity, unspecified, E78.5 - Hyperlipidemia, unspecified, I10 - Essential (primary) hypertension, K76.0 - Fatty (change of) liver, not elsewhere classified, Z98.84 - Bariatric surgery status C Reactive Protein Today E66.9 - Obesity, unspecified, E78.5 - Hyperlipidemia, unspecified, I10 - Essential (primary) hypertension, K76.0 - Fatty (change of) liver, not elsewhere classified, Z98.84 - Bariatric surgery status PTHI Today E66.9 - Obesity, unspecified, E78.5 - Hyperlipidemia, unspecified, I10 - Essential (primary) hypertension, K76.0 - Fatty (change of) liver, not elsewhere classified, Z98.84 - Bariatric surgery status Vitamin D 25-OH Total Today E66.9 - Obesity, unspecified, E78.5 - Hyperlipidemia, unspecified, I10 - Essential (primary) hypertension, K76.0 - Fatty (change of) liver, not elsewhere classified, Z98.84 - Bariatric surgery status Hemoglobin A1c Today E66.9 - Obesity, unspecified, E78.5 - Hyperlipidemia, unspecified, I10 - Essential (primary) hypertension, K76.0 - Fatty (change of) liver, not elsewhere classified, Z98.84 - Bariatric surgery status Telehealth Telehealth Location of provider rendering services: practice address Location of patient: address on file Patient Identification confirmed using: Name, : Yes Telehealth method: video Patient verbally consented to treatment: Yes Patient verbally consented to billing insurance company: Yes Patient informed of any privacy concerns related to visit: Yes Coding Level of Care Code Tele Est Pt Level 4 (15011) Diagnoses Obesity E66.9 S/P laparoscopic sleeve gastrectomy Z98.84
[2023-01-05 14:42] VITALS: BMI 33.6
== END 2023-01-05 15:02 | disposition home or self-care (01) ==
LOC: HO.HBS 14:46
PROVIDERS: PCP Internal Medicine; Visit Provider Physician Assistant
DX: E66.9 Obesity, unspecified (principal); Z98.84 Bariatric surgery status
CPT/HCPCS: 99214

== ENCOUNTER → 2023-01-05 14:30 | Outpatient (BNVA) | payer OTHER, SELFPAY | PROVIDERS: PCP Internal Medicine; Visit Provider Physician Assistant ==

== ENCOUNTER 2023-02-02 10:23 | Outpatient (AMB) | payer OTHER, SELFPAY ==
--- NOTE | 2023-02-02 10:08 | A.OFFVIS_ITS ---
Intake Intake Visit Reasons: VIDEO PO [facility] [place] 08/10/22 Polysomnography Tech Required: No Allergies Seasonal Allergies Allergy (Intermediate, Verified 09/13/22 15:57) Sneezing HPI Nutrition Presentation Details [facility] [place] 08/10/22 Reason for consult elevated BMI Diet Assmnt Details identifies barriers of feeling tired/bored of shakes, Looking for savory foods now. She wants to lose another 30-40lbs. notices herself experimenting with foods 2 zone perfect protein bars Just egg - sometimes with spinach pan[employer] 6 bites butternut squash soup, sandwich a few bites almonds struggling with meal prepping. wants to go abck to eating more mushrooms, chickpeas etc. Pt shares she is mostly plant based. Does not eat egg, yogurt, any dairy, no meat. Gets her protein from beans, tofu, and shrimp, fish Was in the program in 2019, was involved in a lawsuit with her job. She had a lot of stress and decided to withdraw. Went to an emotional eating class and reports this was eye opening, made her realize some of her eating issues. Diagnosis Nutrition problem #1 overweight/obesity As related to (etiology) #1 excess energy intake and physical inactivity As evidenced by (sign/symptom) #1 high BMI Monitoring/Goals Nutrition problem monitoring total energy intake, level of knowledge/skill, total PRO intake, total CHO intake and weight Outcome progress progressing Learning/Education Readiness to learn good Stages of change action Educational materials provided Yes Most Recent Diabetes Results: No Data to Display [facility] Medical History (Updated 08/16/22 @ 12:06 by EDER Colindres) Intra-abdominal adhesions Preoperative cardiovascular examination Tachycardia Hx MRSA infection Vitamin B12 deficiency Adjustment disorder, unspecified Morbid obesity with BMI of 45.0-49.9, adult BMI 45.0-49.9, adult Body mass index (BMI) of 40.0 to 44.9 in adult Asthma Hypertension Seasonal allergies Anxiety IBS (irritable bowel syndrome) Type 2 diabetes mellitus Surgical History H/O: hysterectomy History of facial surgery Hx of section S/P correction of deviated nasal septum Sigmoidoscopy performed Family History Father Hypertension Diabetes mellitus Mother Hypertension Seizures Brother Hypertension Son No problems noted. Social History Household Members: Family Household Members Other:: minor child & mother Housing: Apartment Are you a primary direct care worker to a significant other at home: Yes (minor child) Do you presently have visiting nurse or other home services: No Alcohol intake: current Alcohol intake frequency: holidays/special occasions only Patient Tobacco Use Status: Never used Tobacco service: No Current occupational status: employed Assessment & Plan Assessment & Plan (1) Obesity (BMI 30-39.9): Code(s): E66.9 - Obesity, unspecified Plan nutrition f/u in 4-8 weeks, pt would like to call to schedule Patient Instructions: Two 4in1 shakes with 2 scoops in almond milk OR celebrate rebuild shake with 3 scoops 1 plant based meal- roughly 10g protein OR protein bar 1 meal with fish, shellfish 3oz - 20g protein provided recipe resources Telehealth Telehealth Location of provider rendering services: practice address Location of patient: address on file Patient Identification confirmed using: Name, : Yes Telehealth method: video Patient verbally consented to treatment: Yes Patient verbally consented to billing insurance company: Yes Patient informed of any privacy concerns related to visit: Yes Minutes spent on Phone/Video with Pt.: 30 Coding Level of Care Code Nutr Servando Subseq (85311) Diagnoses Obesity (BMI 30-39.9) E66.9 Time Spent (min) 30
== END 2023-02-02 10:50 | disposition home or self-care (01) ==
LOC: HO.HBS 10:23
PROVIDERS: PCP Internal Medicine; Visit Provider Dietitian, Registered
DX: E66.9 Obesity, unspecified (principal)

== ENCOUNTER → 2023-02-02 10:23 | Outpatient (BNVA) | payer OTHER, SELFPAY | PROVIDERS: PCP Internal Medicine; Visit Provider Dietitian, Registered | DX: E66.9 Obesity, unspecified (principal); E11.9 Type 2 diabetes mellitus without complications; Z98.84 Bariatric surgery status; Z71.3 Dietary counseling and surveillance | CPT/HCPCS: 97803 ==

== ENCOUNTER 2023-04-26 09:00 | Outpatient (AMB) | payer OTHER, SELFPAY ==
--- NOTE | 2023-04-26 09:03 | MHC.OFFVISWM ---
Intake VS Expanded 04/26/23 09:07 Height 5 ft Weight 199 lb BMI 38.9 Intake Visit Reasons: VIDEO PO LSG 08/10/22 Allergies Seasonal Allergies Allergy (Intermediate, Verified 09/13/22 15:57) Sneezing Medication List - Last Reconciled 04/26/23 by Mickie Greenfield PA-C albuterol sulfate 90 mcg/actuation (ProAir HFA) 2 puffs inhalation Q6H PRN amlodipine 5 mg PO DAILY blood pressure monitor As directed cetirizine (All Day Allergy (cetirizine)) 10 mg PO DAILY psyllium husk (Metamucil) 1 tbsp PO DAILY HPI HPI Comments History of Present Illness Details Now 8 months s/p LSG, [employer]OR weight of 238.4 lbs, last seen by me in Nov struggling with food choices /S he had appt with Monica barton to help with plant based food options. Had a basal cell cancerous lesion removed from face in February and has been in a funk since then Now getting back into the plans. Had stopped working out. Exercise- restarted a few weeks ago. Gym - 2-3 d/week. treadmill 30 minutes -275 calories - speed 3.4- 3.5, incline 6 -12. Weight - 2-3 d/wk. Other days - walks outside 400 calories, 1d/wk. TBP videos at home. Total of 6 d/ week. Meal plan: 8:30 bar 12pm - 4:1 2 scoops, soy milk or Premier shake 7:30 pm - 3 oz fish or shrimp with 1 -2 oz vegetables sometimes has protein bar after dinner, or has nuts or candy [facility] Medical History (Updated 08/16/22 @ 12:06 by EDER Colindres) Intra-abdominal adhesions Preoperative cardiovascular examination Tachycardia Hx MRSA infection Vitamin B12 deficiency Adjustment disorder, unspecified Morbid obesity with BMI of 45.0-49.9, adult BMI 45.0-49.9, adult Body mass index (BMI) of 40.0 to 44.9 in adult Asthma Hypertension Seasonal allergies Anxiety IBS (irritable bowel syndrome) Type 2 diabetes mellitus Surgical History H/O: hysterectomy History of facial surgery Hx of section S/P correction of deviated nasal septum Sigmoidoscopy performed Family History Father Hypertension Diabetes mellitus Mother Hypertension Seizures Brother Hypertension Son No problems noted. Social History Household Members: Family Household Members Other:: minor child & mother Housing: Apartment Are you a primary infant childcare provider to a significant other at home: Yes (minor child) Do you presently have visiting nurse or other home services: No Alcohol intake: current Alcohol intake frequency: holidays/special occasions only Patient Tobacco Use Status: Never used Tobacco service: No Current occupational status: employed Assessment & Plan Assessment & Plan (1) Obesity: Code(s): E66.9 - Obesity, unspecified Plan: Inadequate nutrition and weight gain at 8 months postop. Will stop 4:1 sahkes and start bariatric MVI. Meal plan: 80 -90 grams per day, wakes at 6:30 am 8:30 - shake - Premier or Rebuild with soy milk - 30 grams 1 pm - 6 forks protein and 4 forks of vegetable - 20 grams 7:30 pm - 6 forks fish or shrimp with 4 forks vegetables - 20 grams protein bar - cut into 10 pieces No other snacks Exercise - average 6 d/week - 400 calories per day 2,500 huy/week. Treadmill speed 3.5, incline 3 - 12 (3 minutes), with ST. Needs to get her post op labs now. Next appt 2 months with PA. Patient is still morbidly obese and is not considered stable at this time. I spent 30 minutes in total speaking with the patient via video conference counseling , reviewing records and charting in patients chart. . Telehealth Telehealth Location of provider rendering services: practice address Location of patient: address on file Patient Identification confirmed using: Name, : Yes Telehealth method: video Patient verbally consented to treatment: Yes Patient verbally consented to billing insurance company: Yes Patient informed of any privacy concerns related to visit: Yes Coding Level of Care Code Tele Est Pt Level 4 (09948) Diagnoses Obesity E66.9
[2023-04-26 09:07] VITALS: BMI 38.9
== END 2023-04-26 09:33 | disposition home or self-care (01) ==
LOC: HO.HBS 09:09
PROVIDERS: PCP Internal Medicine; Visit Provider Physician Assistant
DX: E66.9 Obesity, unspecified (principal)
CPT/HCPCS: 99214

== ENCOUNTER → 2023-04-26 09:00 | Outpatient (BNVA) | payer OTHER, SELFPAY | PROVIDERS: PCP Internal Medicine; Visit Provider Physician Assistant ==

== ENCOUNTER 2023-09-06 10:11 | Outpatient (AMB) | payer OTHER, SELFPAY ==
--- NOTE | 2023-09-06 10:07 | A.OFFVIS_ITS ---
VS Expanded 09/06/23 10:13 Height 5 ft Weight 209 lb BMI 40.8 Intake Visit Reasons: (TV) PO LSG 08/10/22 Allergies Seasonal Allergies Allergy (Intermediate, Verified 09/13/22 15:57) Sneezing Medication List - Last Reconciled 09/06/23 by EDER Colindres albuterol sulfate 90 mcg/actuation (ProAir HFA) 2 puffs inhalation Q6H PRN amlodipine 5 mg PO DAILY blood pressure monitor As directed cetirizine (All Day Allergy (cetirizine)) 10 mg PO DAILY psyllium husk (Metamucil) 1 tbsp PO DAILY HPI Comments Details: This?is a?47?yo female who is s/p LSG 08/10/2022. Presents for 1 year post op visit. Weight at last visit on 04/26/2023 was 199 pounds with a BMI of 38.9, weight today is 209 pounds, representing a 10 pound weight gain with a BMI today of 40.8.? No complaints of nausea, emesis, abdominal pain or reflux, or constipation. Struggling with old habits, sugar intake. Feels down about weight gain. Present meal plan includes: 80-90 grams per day, wakes at 6:30 am 8:30 - shake - Premier or Rebuild with soy milk - 30 grams 1 pm - 6 forks protein and 4 forks of vegetable - 20 grams 7:30 pm - 6 forks fish or shrimp with 4 forks vegetables - 20 grams protein bar - cut into 10 pieces has not been following consistently, but does try to have one shake and one bar takes calcium but not MVI Exercise routine includes: has been walking COUNTS INCLUDE [facility] BEDS AT [facility] Medical History (Updated 08/16/22 @ 12:06 by EDER Colindres) Intra-abdominal adhesions Preoperative cardiovascular examination Tachycardia Hx MRSA infection Vitamin B12 deficiency Adjustment disorder, unspecified Morbid obesity with BMI of 45.0-49.9, adult BMI 45.0-49.9, adult Body mass index (BMI) of 40.0 to 44.9 in adult Asthma Hypertension Seasonal allergies Anxiety IBS (irritable bowel syndrome) Type 2 diabetes mellitus Surgical History H/O: hysterectomy History of facial surgery Hx of section S/P correction of deviated nasal septum Sigmoidoscopy performed Family History Father Hypertension Diabetes mellitus Mother Hypertension Seizures Brother Hypertension Son No problems noted. Social History Household Members: Family Household Members Other:: minor child & mother Housing: Apartment Are you a primary urgent care nurse practitioner to a significant other at home: Yes (minor child) Do you presently have visiting nurse or other home services: No Alcohol intake: current Alcohol intake frequency: holidays/special occasions only Patient Tobacco Use Status: Never used Tobacco service: No Current occupational status: employed Telehealth Telehealth Telehealth Platform: Telephone Location of provider rendering services: practice address Location of patient: address on file Patient Identification confirmed using: Name, : Yes Telehealth method: voice only Patient verbally consented to treatment: Yes Patient verbally consented to billing insurance company: Yes Patient informed of any privacy concerns related to visit: Yes Minutes spent on Phone/Video with Pt.: 18 Assessment & Plan Assessment & Plan (1) Morbid obesity: Code(s): E66.01 - Morbid (severe) obesity due to excess calories Category: Medical (2) S/P laparoscopic sleeve gastrectomy: Code(s): Z98.84 - Bariatric surgery status Category: Surgical Plan Needs to have annual labs done. Will also purchase MVI. New meal plan; pt aware that a plan with shakes/bars/1 meal is recommended but getting sick of only shakes and bars, feels some bars can be triggering for her. Feels she can commit to 1 of each per day 1 shake per day- Rebuild or Orgain with 8oz soy milk 1 ZP bar 1 Maori yogurt 1 meal protein/veg Track exercise calories. Texted pt my # and encouraged her to check in weekly with updates or any questions. RTC 3 months. I spent a total of 30 minutes reviewing/updating records, examining the patient and counseling the patient on weight management as detailed above.
[2023-09-06 10:13] VITALS: BMI 40.8
== END 2023-09-06 10:36 | disposition home or self-care (01) ==
LOC: HO.HBS 10:11
PROVIDERS: PCP Internal Medicine; Visit Provider Physician Assistant Surgical
DX: E66.01 Morbid (severe) obesity due to excess calories (principal); Z98.84 Bariatric surgery status
CPT/HCPCS: 99214

== ENCOUNTER → 2023-09-06 10:11 | Outpatient (BNVA) | payer OTHER, SELFPAY | PROVIDERS: PCP Internal Medicine; Visit Provider Physician Assistant Surgical ==

== ENCOUNTER 2023-09-19 08:26 | Outpatient (REF) | payer OTHER, SELFPAY ==
[2023-09-19 08:57] LABS: MANUAL DIFF FLAG NO
[2023-09-19 09:25] LABS: Basophils Absolute Auto 0.1 X10*3/uL (0.0-0.2); Basophils Percent Auto 1.2 % (0-2); Eosinophils Absolute Auto 0.2 X10*3/uL (0.0-0.4); Eosinophils Percent Auto 4.7 % (0-4); Hematocrit 43.8 % (37.0-47.0); Hemoglobin 14.6 g/dl (12.0-16.0); Imm Gran Abs Auto 0.01 X10*3/uL (0.00-0.03); Imm Gran Pct Auto 0.2 % (0.0-0.4); Lymphocytes Absolute Auto 1.7 X10*3/uL (1.2-4.9); Mean Corpuscular HGB Conc 33.3 g/dl (31.0-35.0); Mean Corpuscular Hemoglobin 28.2 pg (27.0-33.0); Mean Corpuscular Volume 84.7 fL (80.0-98.0); Monocytes Absolute Auto 0.4 X10*3/uL (0.1-1.2); Monocytes Percent Auto 7.6 % (2-11); Neutrophils Absolute Auto 2.8 x10*3/uL (2.0-8.3); Neutrophils Percent Auto 54.3 % (45-73); Platelet Count 228 X10*3/uL (160-400); Red Blood Count 5.17 X10*6/uL (4.20-5.50); Red Cell Distribution Width 13.2 % (11.0-16.0); White Blood Count 5.2 X10*3/uL (4.8-10.8)
[2023-09-19 09:31] LABS: Estimated Average Glucose 131 mg/dL; Hemoglobin A1c % 6.2 % (<6.0)
[2023-09-19 09:58] LABS: Anion Gap 12 (12-20)
[2023-09-19 09:59] LABS: Parathyroid Hormone Intact 107.4 pg/mL (8.7-77.1)
[2023-09-19 10:26] LABS: Alanine Aminotransferase 25 U/L (0-31); Albumin Level 4.2 g/dL (3.5-5.0); Alkaline Phosphatase 108 U/L (39-117); Aspartate Amino Transferase 25 U/L (5-31); Bilirubin Total 0.8 mg/dL (0.0-1.0); Blood Urea Nitrogen 15 mg/dL (9-16); C Reactive Protein 0.25 mg/dL (< or = 0.50); Calcium 9.6 mg/dL (8.4-10.2); Carbon Dioxide 30 mmol/L (22-29); Chloride 105 mmol/L (96-108); Cholesterol 228 mg/dL (<200); Estimated Glomerular Filt Rate > 60; Ferritin 43 ng/mL (10-250); Glucose Random 131 mg/dL (60-115); HDL Cholesterol 41 mg/dL (>40); Iron 76 mcg/dL (30-160); LDL Cholesterol Calculated 162 mg/dL (<100); Percent Iron Saturation 24 % (15-50); Potassium 3.5 mmol/L (3.3-5.1); Sodium 143 mmol/L (135-145); TSH reflex Free T4 2.49 uIU/mL (0.32-4.0); Total Iron Binding Capacity 322 mcg/dL (228-428); Total Protein 6.9 g/dL (6.5-8.0); Triglycerides 125 mg/dL (<150); Unsaturated Iron Binding 246 ug/dL; Vitamin D 25-OH Total 31.3 ng/mL (>30)
[2023-09-19 11:09] LABS: Insulin 11 uU/mL (2-29)
[2023-09-19 11:11] LABS: Folate 17.1 ng/mL (> or = 4.0); Vitamin B12 874 pg/mL (200-900)
[2023-09-22 17:28] LABS: Zinc 69 mcg/dL (60-130)
[2023-09-25 15:54] LABS: Vitamin A 43 mcg/dL (38-98)
[2023-09-26 01:34] LABS: Vitamin B1 23 nmol/L (8-30)
== END 2023-09-19 08:27 | disposition home or self-care (01) ==
LOC: HO.LAB 08:26
PROVIDERS: PCP Internal Medicine; Visit Provider Physician Assistant
DX: Z98.84 Bariatric surgery status (principal); E66.9 Obesity, unspecified; K76.0 Fatty (change of) liver, not elsewhere classified; E78.5 Hyperlipidemia, unspecified; I10 Essential (primary) hypertension; Z13.1 Encounter for screening for diabetes mellitus
CPT/HCPCS: 36415; 80053; 80061; 82306; 82607; 82728; 82746; 83036; 83525; 83540; 83970; 84425; 84443; 84590; 84630; 85025; 86140

== ENCOUNTER 2024-01-16 11:19 | Outpatient (AMB) | payer OTHER, SELFPAY ==
--- NOTE | 2024-01-16 11:05 | MHC.OFFVISWM ---
VS Expanded 01/16/24 11:10 Height 5 ft Weight 199 lb BMI 38.9 Intake Visit Reasons: TELEPHONE PO LSG 08/10/22 Allergies Seasonal Allergies Allergy (Intermediate, Verified 09/13/22 15:57) Sneezing HPI Comments Details: This?is a?48?yo female who is s/p LSG 08/10/2022. Presents for 17 month post op visit. Weight at last visit on 09/06/2023 was 209 pounds with a BMI of 40.8, weight today is 199 pounds, representing a 10 pound weight loss with a BMI today of 38.9.? No complaints of nausea, emesis, abdominal pain or reflux, or constipation. Pt reports stress at work, eating a little more bread than I should . Trying to be more mindful. Present meal plan includes: 1 shake per day- Rebuild or Orgain with 8oz soy milk 1 ZP bar 1 Trinidadian yogurt 1 meal protein/veg created at last visit has not really been eating bars or shakes, has no desire for them- uses whole foods Exercise routine includes: walking [facility] Medical History (Updated 08/16/22 @ 12:06 by EDER Colindres) Intra-abdominal adhesions Preoperative cardiovascular examination Tachycardia Hx MRSA infection Vitamin B12 deficiency Adjustment disorder, unspecified Morbid obesity with BMI of 45.0-49.9, adult BMI 45.0-49.9, adult Body mass index (BMI) of 40.0 to 44.9 in adult Asthma Hypertension Seasonal allergies Anxiety IBS (irritable bowel syndrome) Type 2 diabetes mellitus Surgical History H/O: hysterectomy History of facial surgery Hx of section S/P correction of deviated nasal septum Sigmoidoscopy performed Family History Father Hypertension Diabetes mellitus Mother Hypertension Seizures Brother Hypertension Son No problems noted. Social History Household Members: Family Household Members Other:: minor child & mother Housing: Apartment Are you a primary health and social care teacher to a significant other at home: Yes (minor child) Do you presently have visiting nurse or other home services: No Alcohol intake: current Alcohol intake frequency: holidays/special occasions only Patient Tobacco Use Status: Never used Tobacco service: No Current occupational status: employed Telehealth Telehealth Telehealth Platform: Telephone Location of provider rendering services: other Location of patient: address on file Patient Identification confirmed using: Name, : Yes Telehealth method: voice only Patient verbally consented to treatment: Yes Patient verbally consented to billing insurance company: Yes Patient informed of any privacy concerns related to visit: Yes Minutes spent on Phone/Video with Pt.: 16 Assessment & Plan Assessment & Plan (1) Obesity: Code(s): E66.9 - Obesity, unspecified Category: Medical (2) S/P laparoscopic sleeve gastrectomy: Code(s): Z98.84 - Bariatric surgery status Category: Surgical Plan Pt likely low in overall protein intake, recommended incorporating a shake each day to get closer to protein goal. (80g/day) Pt will also increase exercise. Labs reviewed, high PTH, borderline low vit D so will supplement for 3 months and recheck. RTC 3 months. I spent a total of 30 minutes reviewing/updating records, examining the patient and counseling the patient on weight management as detailed above. Medications: New cholecalciferol (vitamin D3) 50 mcg PO DAILY 90 caps 3RF
[2024-01-16 11:10] VITALS: BMI 38.9
== END 2024-01-16 11:34 | disposition home or self-care (01) ==
LOC: HO.HBS 11:19
PROVIDERS: PCP Internal Medicine; Visit Provider Physician Assistant Surgical
DX: E66.9 Obesity, unspecified (principal); Z98.84 Bariatric surgery status
CPT/HCPCS: 99214

== ENCOUNTER 2024-04-08 13:03 | Outpatient (AMB) | payer OTHER, SELFPAY ==
--- NOTE | 2024-04-08 12:42 | A.OFFVIS_ITS ---
VS Expanded 04/08/24 12:50 Height 5 ft Weight 198 lb BMI 38.7 Intake Visit Reasons: TELEPHONE PO LSG 08/10/22 Allergies Seasonal Allergies Allergy (Intermediate, Verified 09/13/22 15:57) Sneezing Medication List - Last Reconciled 04/08/24 by EDER Colindres albuterol sulfate 90 mcg/actuation (ProAir HFA) 2 puffs inhalation Q6H PRN amlodipine 5 mg PO DAILY blood pressure monitor As directed cetirizine (All Day Allergy (cetirizine)) 10 mg PO DAILY cholecalciferol (vitamin D3) 50 mcg PO DAILY psyllium husk (Metamucil) 1 tbsp PO DAILY semaglutide (Ozempic) 0.25 mg subcut QWEEK simethicone 180 mg PO BID PRN HPI Comments Details: This?is a?48?yo female who is s/p LSG 08/10/2022. Presents for 1 year 8 month post op visit. Weight at last visit on 01/16/2024 was 199 pounds with a BMI of 38.9, weight today is 198 pounds, representing a 1 pound weight loss with a BMI today of 38.8.? No complaints of nausea, emesis, abdominal pain or reflux, or constipation. Occasional gas pain, asks for something to help with this. Pt was recently started on Ozempic. She has not noticed significant weight loss with this. Present meal plan includes: 1 shake per day- Rebuild or Orgain with 8oz soy milk 1 ZP bar 1 Greenlandic yogurt 1 meal protein/veg at last visit encouraged pt to make sure she had one shake per day has not really been eating bars or shakes, has no desire for them- uses whole foods Exercise: walking- has not been exercising recently, her dog had a litter, her son travels a lot for sports [facility] Medical History (Updated 08/16/22 @ 12:06 by EDER Colindres) Intra-abdominal adhesions Preoperative cardiovascular examination Tachycardia Hx MRSA infection Vitamin B12 deficiency Adjustment disorder, unspecified Morbid obesity with BMI of 45.0-49.9, adult BMI 45.0-49.9, adult Body mass index (BMI) of 40.0 to 44.9 in adult Asthma Hypertension Seasonal allergies Anxiety IBS (irritable bowel syndrome) Type 2 diabetes mellitus Surgical History H/O: hysterectomy History of facial surgery Hx of section S/P correction of deviated nasal septum Sigmoidoscopy performed Family History Father Hypertension Diabetes mellitus Mother Hypertension Seizures Brother Hypertension Son No problems noted. Social History Household Members: Family Household Members Other:: minor child & mother Housing: Apartment Are you a primary client care coordinator to a significant other at home: Yes (minor child) Do you presently have visiting nurse or other home services: No Alcohol intake: current Alcohol intake frequency: holidays/special occasions only Patient Tobacco Use Status: Never used Tobacco service: No Current occupational status: employed Assessment & Plan Assessment & Plan (1) Obesity: Code(s): E66.9 - Obesity, unspecified Category: Medical (2) S/P laparoscopic sleeve gastrectomy: Code(s): Z98.84 - Bariatric surgery status Category: Medical Plan I strongly encouraged pt to consider resuming protein supplements as she is not losing weight eating whole foods, even on Ozempic. She is agreeable to resuming protein drinks with one meal per day. Will go to hospital gift shop to purchase; we also discussed using Celebrate or Isopure protein hopper as another option. She will reach out to her PCP for a dose increase on Ozempic. Simethicone ordered for gas pain. RTC 3-4 months. I spent a total of 30 minutes reviewing/updating records, examining the patient and counseling the patient on weight management as detailed above. Medications: New simethicone 180 mg PO BID PRN 90 caps 3RF abdominal distention
[2024-04-08 12:50] VITALS: BMI 38.7
--- OUTSIDE RECORDS SUMMARY | 2024-04-08 14:06 | XMS_ITS | Clinical Summary ---
Author Organization [facility] Address [address] [place] [address] Care Team Providers Care Supply Officer Name Role Phone Colton Castro MD Primary Care Provider [phone] Allergies Active Allergy Reactions Criticality Noted Date Comments Other 02/24/2009 Seasonal Allergies Medications semaglutide (Ozempic) 0.25 mg or 0.5 mg (2 mg/3 mL) injection pen INJECT 0.25MG INTO THE SKIN ONE TIME PER WEEK 6 mL 4 Active albuterol HFA (ProAir HFA) 90 mcg/actuation inhaler Take 2 puffs by mouth every 4 (four) hours if needed for wheezing (or cough). 3 Active amLODIPine (NORVASC) 5 mg tablet Take 1 tablet (5 mg total) by mouth 1 (one) time each day. 4 Active cetirizine (ZyrTEC) 10 mg tablet Take 1 tablet (10 mg total) by mouth 1 (one) time each day. 4 Active diclofenac (VOLTAREN) 1 % topical gel Apply 1 g topically 4 (four) times a day. 4 Active fluticasone propionate (FLONASE) 50 mcg/actuation nasal spray Administer 2 sprays into each nostril 1 (one) time each day. Active nystatin (MYCOSTATIN) ointment Apply to affected area twice daily for two weeks 4 10/21/19 25 Active Ozempic 0.25 mg or 0.5 mg (2 mg/3 mL) injection pen INJECT 0.25MG INTO THE SKIN ONE TIME PER WEEK Active crisaborole 2 % ointment Apply 1 Squirt topically 2 times daily. 0 Active diclofenac (VOLTAREN) 1 % topical gel APPLY 1 G TOPICALLY 4 TIMES DAILY NEEDED (PAIN). 4 Active tacrolimus (PROTOPIC) 0.1 % ointment APPLY EXTERNALLY A SMALL AMOUNT TO AFFECTED AREA TWICE DAILY FOR 2-3 WEEKS DURING FLARES NEEDED 0 Active tretinoin (RETIN-A) 0.025 % cream APPLY A PEA SIZED AMOUNT AT BEDTIME. 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 Controlled type 2 diabetes m lily with renal manifestation 10/10/2011 Morbid obesity 11/03/2010 Overview (01/20/2024): BMI 51.03 on 02/22/13. Asthma 01/27/2009 Hypertension 11/27/2007 Overview (01/20/2024): She was placed on Aldomet. 11/27/2007, d/c'd 2009. Immunizations Name Administration Dates Next Due H1N1 Inj Preservative Free 02/13/2009 Hepatitis B (Akbdipj-N-Trmzr , Recombivax HB-Adult) 19yo and older 10/28/2009,05/28/2009,04/27/2009 Hepatitis B (Recombivax HB-D ialysis) 18yo and older 10/28/2009,05/28/2009,04/27/2009 Influenza Quadravalent, MDCK , 0.5ml, preservative free (Flucelvax) 6mo and older 11/11/2019,12/31/2018 Influenza trivalent, 0.5mL, preservative free (Fluarix; FluLaval; Fluzone) ages 6mo and older (Afluria) 3 years and older 11/21/2014,04/09/2014,12/11/2012,01/02,12/28/2008 Pneumococcal polysaccharide 23 valent (Pneumovax 23) 2yo and older 04/09/2014 Td Tetanus diptheria (Tdvax) 7yo and older 12/17/2003 Tdap Tetanus diptheria acell ular pertussis (Boostrix; Adacel) 7yo and older 10/03/2011 Surgical History Surgery Date Site/Laterality Comments FLEXIBLE SIGMOIDOSCOPY 2012 PROCEDURE: TN SIGMOIDOSCOPY FLX DX W/COLLJ SPEC BR/WA IF PFRMD; COMMENT: normal to 35 cm. ROBOTIC ASSISTED HYSTERECTOMY 05/10/2019 PROCEDURE: HISTORICAL ROBOTIC HYSTERECTOMY WITH OR WITHOUT BSO; COMMENT: da Olivier total hysterectomy with bilateral salpinjectomy Medical History Medical History Date Comments Unspecified asthma(493.90) DX:Un specified asthma(493.90) Essential hypertension, benign D X:Essential hypertension, benign Hemangioma 01/27/2009 DX:Hemangioma; C OMMENT: port wine stain Hx MRSA infection 05/08/2009 DX:Hx MRSA inf ection Hypothyroidism 09/02/2011 DX:Hypothyroidis m IBS (irritable bowel syndrome) 01/21/2013 D X:IBS (irritable bowel syndrome); COMMENT: Onset teens, diarrhea predominant. 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 DX:Port- wine stain of skin Family History Medical History Relation Name Comments Breast cancer Aunt paternal x2 Hypertension Father sleep apnea Diabetes Maternal Grandfather CHF Stroke Maternal Grandfather Arthritis Maternal Grandmother Other: thyroid cancer Mother's side Cataracts Paternal Grandfather Diabetes Paternal Grandfather CHF Blindness Neg Hx Glaucoma Neg Hx Macular degeneration Neg Hx Strabismus Neg Hx Relation Name Status Comments Aunt Brother Alive Father Alive Maternal Grandfather Alive Maternal Grandmother Alive Mother Alive Mother's side Paternal Grandfather Alive Paternal Grandmother Alive Son Ted Alive Social History Tobacco Use Types Packs/Day Years Used Date Smoking Tobacco: Never Smokeless Tobacco: Never Alcohol Use Standard Drinks/Week Comments Not Currently 0 (1 standard drink = 0.6 oz pur e alcohol) Comments Unknown Sex and Gender Information Value Date Recorded Sex Assigned at Not on file Legal Sex Female 12:15 PM EST Gender Identity Not on file Sexual Orientation Not on file Obstetrics History Last Filed Vital Signs Vital Sign Reading Time Taken Comments Blood Pressure 128/78 10/31/2023 4:07 PM EDT Pulse 86 10/31/2023 1:43 PM EDT Temperature - - Respiratory Rate - - Oxygen Saturation - - Inhaled Oxygen Concentration - - Weight 99.7 kg (219 lb 11.2 oz) 10/31/2023 1:43 PM EDT Height 160 cm (5' 3 ) 10/31/2023 1:43 PM EDT Body Mass Index 38.92 10/31/2023 1:43 PM EDT Plan of Treatment Upcoming Encounters Date Type Department Care Team (Late st Contact Info) Description 05/08/2024 9:00 AM EDT Office Visit Adult Medicine [address] [address] Colton Castro MD [address] [place] [id number] 12/11/2024 9:00 AM EDT Appointment Radiology Department - [address] [address] Health Maintenance Due Date Last Done Comments Diabetes: Annual Foot Exam 09/09/1987 Diabetes: Annual Retina Eye Exam 09/09/1987 DTaP,Tdap,and Td Vaccines (3 - Td or Tdap) 04/04/2012 10/03/2011, 12/17/2003 Pneumococcal Vaccine: Pediatrics (0 to 5 Years) and At-Risk Patients (6 to 64 Years) (2 of 2 - PCV) 04/09/2015 04/09/2014 Colorectal Cancer Screening: Colonoscopy 02/05/2022 Depression Screening 02/05/2022 Social Influencers of Health Screening 02/05/2022 Diabetes: Annual Urine Albumin-Creatinine Ratio (uACR) 06/16/2023 06/15/2022 COVID-19 Vaccine ( season) 2023 02/15/2021, 05/01/2020, 04/10/2020 Influenza Vaccine (#1) 2023 , 12/31/2018, 11/21/2014, Additional history exists Diabetes: Blood Sugar Control Test (HGBA1C) 04/30/2024 11/01/2023, 11/01/2023 Diabetes: Annual GFR (Glomerular Filtration Rate) 10/31/2024 11/01/2023, 11/01/2023 Hypertension/CHF/CAD Annual BMP Blood Test 10/31/2024 11/01/2023, 11/01/2023 Breast Cancer Screening 11/21/2025 11/22/19 24, 11/22/2023, 11/15/2022, Additional history exists Cholesterol Screening (Lipid Panel) 10/31/2028 11/01/2023, 11/01/2023 Hepatitis B Vaccines Completed 10/28/2009, 10/28/2009, 05/28/2009, Additional history exists HIV Screening Completed 01/03/2020 Hepatitis C Screening Completed 01/03/2020 HIB Vaccines Aged Out No longer eligi ble based on patient's age to complete this topic HPV Vaccines Aged Out No longer eligi ble based on patient's age to complete this topic Hepatitis A Vaccines Aged Out No long er eligible based on patient's age to complete this topic IPV Vaccines Aged Out No longer eligi ble based on patient's age to complete this topic MMR Vaccines Aged Out No longer eligi ble based on patient's age to complete this topic Meningococcal ACWY Vaccine Aged Out N o longer eligible based on patient's age to complete this topic Meningococcal B Vacine Aged Out No lo nger eligible based on patient's age to complete this topic RSV Immunization Patients Under 20 months Aged Out No longer eligible based on patient's age to complete this topic Varicella Vaccines Aged Out No longer eligible based on patient's age to complete this topic Procedures Procedure Name Priority Date/Time Associated Diagnosis Comments SCREENING MAMMOGRAPHY BI 2-VIEW BREAST INC CAD Routine 11/22/2023 9:13 AM EDT Encounter for screening mammogram for malignant neoplasm of breast ANNUAL BMP BLOOD TEST Routine 11/01/2023 HEMOGLOBIN A1C Routine 11/01/2023 LIPID PANEL Routine 11/01/2023 URINE ALBUMIN CREATININE RATIO Routine 06/15/2022 HEPATITIS C SCREENING Routine 01/03/2020 HIV SCREENING Routine 01/03/2020 from Last 3 Months or Most Recently Relevant to Health Maintenance Results * SCREENING MAMMOGRAPHY BI 2-VIEW BREAST INC CAD (11/22/2023 9:13 AM EDT) Anatomical Region Laterality Modality Radiographic Liset ging 11/15/2022 8:34 AM EDT Narrative 11/22/2023 2:47 PM EDT This is a summary report. The complete report is available in the patient's medical record. If you cannot access the medical record, please contact the sending organization for a detailed fax or copy. BILATERAL 3D DIGITAL SCREENING MAMMOGRAM History: Routine screening. ??No current breast complaints. ??Family history of breast cancer in aunt Comparison: Multiple priors dating back to 10/28/2020 Technique: Bilateral full-field digital 3D mammography was performed using standard CC and MLO projections CAD was used to evaluate this mammogram. Findings: Density: ??There are scattered areas of fibroglandular density-B RIGHT: No suspicious masses, groups of microcalcification or areas of architectural distortion identified. Stable typically benign parenchymal asymmetries. ??Stable lateral breast focal asymmetry. LEFT: No suspicious masses, groups of microcalcifications or areas of architectural distortion identified. Stable typically benign parenchymal asymmetries IMPRESSION: : 1. ??No mammographic evidence of malignancy. BI-RADS Category 2 benign findings Recommendation: Routine annual screening mammography is recommended [facility] [address] [place] [address] [place] [id number] Procedure Note Mckenzie Alfaro MD - 12/13/2023 This is a summary report. The complete report is available in thepatient's medical record. If you cannot access the medical record, pleasecontact the sending organization for a detailed fax or copy. BILATERAL 3D DIGITAL SCREENING MAMMOGRAM History: Routine screening. No current breast complaints. Family historyof breast cancer in aunt Comparison: Multiple priors dating back to 10/28/2020 Technique: Bilateral full-field digital 3D mammography was performed usingstandard CC and MLO projections CAD was used to evaluate this mammogram. Findings: Density: There are scattered areas of fibroglandular density-B RIGHT: No suspicious masses, groups of microcalcification or areas ofarchitectural distortion identified. Stable typically benign parenchymalasymmetries. Stable lateral breast focal asymmetry. LEFT: No suspicious masses, groups of microcalcifications or areas ofarchitectural distortion identified. Stable typically benign parenchymalasymmetries IMPRESSION: : 1. No mammographic evidence of malignancy. BI-RADS Category 2 benign findings Recommendation: Routine annual screening mammography is recommended [facility] [address] [place] [address] [id number] Result [facility] Colton Castro MD IMG XR PROCEDURES Final Result * Annual BMP Blood Test (11/01/2023) Pathologist [facility] Annual BMP Blood Test Abstracted Result [facility] Historical Provider HEALTH MAINTENANCE Final Result * Hemoglobin A1c (11/01/2023) Pathologist [facility] Hemoglobin A1C 6.4 <=6.5 % Blood Venous blood specimen / Unknown Result [facility] Historical Provider LAB BLOOD ORDERABLES [place] Result * (ABNORMAL) Lipid panel (11/01/2023) [facility] LDL/HDL Ratio 5(A) 0 - 4 Triglycerides 134 0 - 150 mg/dL Cholesterol 223(A) 0 - 200 mg/dL HDL 43 >=40 mg/dL LDL Cholesterol 154(A) 0 - 100 mg/dL Blood Venous blood specimen / Unknown [facility] Provider LAB BLOOD ORDERABLES [place] Result * Urine Albumin Creatinine Ratio (06/15/2022) Pathologist [facility] Urine Albumin Creatinine Ratio Abstracted Result [facility] Provider HEALTH MAINTENANCE Final Result * HIV Screening (01/03/2020) [facility] HIV Screening Abstracted Result [facility] Provider HEALTH MAINTENANCE Final Result * Hepatitis C Screening (01/03/2020) [facility] Hepatitis C Screening Abstracted Result [facility] Provider HEALTH MAINTENANCE Final Result from Last 3 Months or Most Recently Relevant to Health Maintenance Care Teams Supply Officer Relationship Specialty Start Date End Date Colton Castro MD PCP - General 01/27/09
--- OUTSIDE RECORDS SUMMARY | 2024-04-08 14:06 | XMS_ITS | Clinical Summary ---
Author Organization [facility] Address [address] [place] [address] Care Team Providers Care Wood Fence Erector Name Role Phone Matthew HOLDER MD, Colton Harkins Primary Care Provider [phone] Allergies No known active allergies Medications LANCING DEVICE MISC ONETOUCH 7 Active amLODIPine (NORVASC) 5 mg tablet Take 5 mg by mouth. 7 Active cetirizine (ZyrTEC) 10 mg tablet TAKE 1 TABLET BY MOUTH DAILY 7 Active cimetidine (TAGAMET) 300 mg tablet Cimetidine 300 MG Oral Tablet Quantity: 40; Refills: 0 Started 16-Nov-2014 Active 5 Active (No Medication Selected) Compounded Medication (List Components in Sig) lidocaine-tetraca ine (plasticized) 23%-7% ointment. Dispense one 2 oz jar. apply to face one hour prior to laser. avoid applying near eye Quantity: 1; Refills: 0 LISBETH OSORIO MD; Started Active 6 Active dicyclomine (BENTYL) 10 mg capsule Dicyclomine HCl - 10 MG Oral Capsule Quantity: 30; Refills: 0 Started 04-Feb-2013 Active 3 Active lancets misc USE TO TEST BLOOD SUGAR 7 Active lisinopril (PRINIVIL,ZEST RIL) 40 mg tablet TK 1 T PO D 0 7 Active nystatin ointment Nystatin [id number] UNIT/GM External Ointment Quantity: 30; Refills: 0 Started 19-Nov-2014 Active 5 Active blood glucose diagnostic (ONETOUCH ULTRA TEST) test strip USE TO CHECK BLOOD SUGAR DAILY 7 Active ranitidine (ZANTAC) 150 mg tablet TAKE 1 TABLET BY MOUTH TWICE DAILY NEEDED FOR HEARTBURN 7 Active triamcinolone acetonide (KENALOG) 0.1% dental paste Triamcinolone Acetonide 0.1 % External Cream Quantity: 15; Refills: 0 Started -Oct-2014 Active 5 Active triamcinolone (KENALOG) 0.5 % cream Apply to affected area twice daily as needed 7 Active albuterol (PROAIR HFA) 90 mcg inhaler INHALE 2 PUFFS BY MOUTH EVERY 6 HOURS NEEDED FOR COUGH OR WHEEZE 8 Active cyclobenzaprin e (FLEXERIL) 10 mg tablet Take 10 mg by mouth. 7 Active lidocaine-pril ocaine (EMLA) cream Apply thickly to area 1-2 hours prior to procedure and occlude with Tegaderm. 25 g 1 8 Active Additional Information Patient not taking.Reported on 05/29/2018 Custom Compounded MedicationIndi cations:Congen ital non-neoplastic nevus Lidocaine-tetraca ine (plasticized) 23%- 7% ointment. Dispense one 2 oz jar. Apply to face one hour prior to laser. Avoid applying near eye. 1 each 5 8 Active Additional Information Patient not taking.Reported on 03/14/2019 desogestrel-et hinyl estradiol (APRI) 0.15-0.03 mg per tablet Take 1 tablet by mouth. 9 Active diclofenac (VOLTAREN) 1% gel Apply 4 g or less of 1% gel to affected area 4 times daily, not to exceed 16g in 24 hour period 9 Active Vitamin D3 50 mcg (2,000 unit) capsule Take 1 capsule by mouth once a day. 2 Active clobetasoL-emo llient 0.05 % cream APPLY TO AFFECTED AREA TWICE A DAY NEEDED 2 Active metFORMIN ER (GLUCOPHAGE XR) 500 mg tablet Take 500 mg by mouth 2 times a day. 2 Active tretinoin (RETIN-A) 0.025 % cream Apply topically to the affected area nightly. 2 Active vitamin A 10,000 unit capsule Take 10,000 Units by mouth once a day. 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 Encounters Date Type Department Care Team Description 03/21/2024 Telephone [facility] 4th Floor [address], [place] [id number] Electric Wheelchair Repairer: Aysha Rizzo Telephone Intake, Staff PAC Patient Request Call Back; PAC Appt Request - Dereck from Last 3 Months Family History Medical History Relation Name Comments Other Father Family History of hypertension /Family History of diabetes mellitus Other Mother Family history of Anxiety and depression /Family History of thyroid disease Relation Name Status Comments Father Mother Social History Tobacco Use Types Packs/Day Years Used Date Smoking Tobacco: Never Smokeless Tobacco: Never Tobacco Cessation:Counseling Given: Not Answered Comments:: Comments Unknown Sex and Gender Information Value Date Recorded Sex Assigned at Not on file Legal Sex Female 7:31 AM EDT Gender Identity Not on file Sexual Orientation Not on file Last Filed Vital Signs Vital Sign Reading Time Taken Comments Blood Pressure 140/80 09/27/2013 1:10 PM EDT Pulse - - Temperature - - Respiratory Rate - - Oxygen Saturation - - Inhaled Oxygen Concentration - - Weight 108.9 kg (239 lb 15.9 oz) 01/14/2016 3:35 PM EST Height 160 cm (5' 3 ) 01/14/2016 3:35 PM EST Body Mass Index 42.51 01/14/2016 3:35 PM EST Plan of Treatment Upcoming Encounters Date Type Department Care Team (Late st Contact Info) Description 08/20/2024 1:30 PM EDT Follow-Up [facility] Dermatology Clinic 2nd Floor [address], [place] [address] Electric Wheelchair Repairer: Aysha Ortega, Tyler Arredondo MD [address] [place] [address] Health Maintenance Due Date Last Done Comments Cervical Cancer Screening 1977 Cologuard 1977 Colon Cancer Screening 1977 Colonoscopy 1977 FOBT / Fit Test 1977 HPV and Pap Smear 1977 Pap Smear 1977 Sigmoidoscopy 1977 COVID-19 Vaccine ( - 2023- season) 2023 02/15/2021, 05/01/2020, 04/10/2020 Influenza Vaccine (#1) 2023 , 11/11/2019, 12/31/2018, Additional history exists Alcohol/Substance Use Screening 02/28/2024 DTaP,Tdap,and Td Vaccines (3 - Td or Tdap) 08/02/2029 08/03/2019, 10/03/2011, 12/17/2003 RSV Vaccine (60+ years old and patients) (1 - 1-dose 75+ series) 2052 Hepatitis B Vaccines Completed 10/28/2009, 05/28/2009, 04/27/2009 Pneumococcal Vaccine: Pediatric (0-5 Years) and At-Risk Patients (6-64 Years) Aged Out 04/09/2014 No longer eligible based on patient's age to complete this topic HIV Screening Completed 05/10/2018 Insurance [employer] Care Teams Wood Fence Erector Relationship Specialty Start Date End Date Colton Castro III, MD PCP - General 09/15/16
--- OUTSIDE RECORDS SUMMARY | 2024-04-08 14:06 | XMS_ITS | Encounter Summary ---
Author Organization [facility] Address [address] [place] [address] Care Team Providers Care Stage Director Name Role Phone Matthew HOLDER MD, Colton Harkins Primary Care Provider +1- [phone] Reason for Visit * Reason Onset Date Comments Nevus 01/04/2021 Encounter Details Date Type Department Care Team (Late st Contact Info) Description 01/04/2021 Telephone [facility] Central Scheduling Department [address] [place] [id number] Telephone Intake, Staff Nevus Social History Tobacco Use Types Packs/Day Years Used Date Smoking Tobacco: Never Smokeless Tobacco: Never Comments:: Comments Unknown Sex and Gender Information Value Date Recorded Sex Assigned at Not on file Legal Sex Female 7:31 AM EDT Gender Identity Not on file Sexual Orientation Not on file documented as of this encounter Miscellaneous Notes * Telephone Encounter - Kenia Monaco - 01/04/2021 9:08 AM EST Derm pt of Dr. Tyler Ortega's looking to schedule appt/laser for facial birthmark Pt states she has gotten more bumps on birthmark and sometimes there's bleeding Per DT, schedule within 2wks--none available [place] [phone] documented in this encounter Plan of Treatment Upcoming Encounters Date Type Department Care Team (Late st Contact Info) Description 08/20/2024 1:30 PM EDT Follow-Up [facility] 2nd Floor [address] [facility], Second Floor [place], [place] [id number] Shampoo Assistant: Aysha Ortega, Tyler Arredondo MD [address] [place] [phone] documented as of this encounter Visit Diagnoses Not on filedocumented in this encounter Care Teams Stage Director Relationship Specialty Start Date End Date Colton Castro III, MD PCP - General 09/15/16 documented as of this encounter
--- OUTSIDE RECORDS SUMMARY | 2024-04-08 14:06 | XMS_ITS | Encounter Summary ---
Author Organization [facility] Address [address] [place] [address] Care Team Providers Care Strategy Execution Consultant Name Role Phone Matthew HOLDER MD, Colton Harkins Primary Care Provider +1- [phone] Reason for Visit * Reason Onset Date Comments PAC Patient Request Call Back 03/21/2024 PAC Appt Request - Established-[facility] 03/21/2024 Encounter Details Date Type Department Care Team (Late st Contact Info) Description 03/21/2024 Telephone [facility] D[facility] 4th [address] [place] [address], [place] [address] Job Printer: Aysha Rizzo Telephone Intake, Staff PAC Patient Request Call Back; PAC Appt Request - Established-[facility] Social History Tobacco Use Types Packs/Day Years Used Date Smoking Tobacco: Never Smokeless Tobacco: Never Comments:: Comments Unknown Sex and Gender Information Value Date Recorded Sex Assigned at Not on file Legal Sex Female 7:31 AM EDT Gender Identity Not on file Sexual Orientation Not on file documented as of this encounter Miscellaneous Notes * Telephone Encounter - Arlene Tsang - 03/21/2024 1:59 PM EST All set * Telephone Encounter - Bibi Lorenz - 03/21/2024 9:12 AM EST Pt of Dr Ortega calling stating that she would like to start laser treatment again for her birthmark. States that the birthmark has changed and has gotten darker and is concerned. Would like to see if she would be able to some in to be seen sooner than August if possible. Please reach out to pt to advise. documented in this encounter Plan of Treatment Upcoming Encounters Date Type Department Care Team (Late st Contact Info) Description 08/20/2024 1:30 PM EDT Follow-Up [facility] D[facility]atology [facility] 2nd Floor [address] [facility], [place] [address] Job Printer: Tyler Coley MD [address] [place] [phone] documented as of this encounter Visit Diagnoses Not on filedocumented in this encounter Care Teams Strategy Execution Consultant Relationship Specialty Start Date End Date Colton Castro III, MD PCP - General 09/15/16 documented as of this encounter
--- OUTSIDE RECORDS SUMMARY | 2024-04-08 14:06 | XMS_ITS | Referral Summary ---
Author Organization [facility] Address [address] [place] [address] Care Team Providers Care Spooling Machine Operator Name Role Phone Matthew HOLDER MD, Colton Harkins Primary Care Provider +1- [phone] Encounters Date Type Department Care Team Description 03/21/2024 Telephone [facility] Dermatology Clinic [address]th [address] [place] [address], [place] [address] General Expeditor: Aysha Rizzo Telephone Intake, Staff PAC Patient Request Call Back; PAC Appt Request - Established-[facility] from Last 3 Months Allergies No known active allergies Medications LANCING [...] D 0 7 Active nystatin ointment Nystatin 380440 UNIT/GM External Ointment Quantity: 30; Refills: 0 Started 19-Nov-2014 Active 5 Active blood glucose diagnostic (ONETOUCH ULTRA TEST) test strip USE TO CHECK BLOOD SUGAR DAILY 7 Active ranitidine (ZANTAC) 150 mg tablet TAKE 1 TABLET BY MOUTH TWICE DAILY NEEDED FOR HEARTBURN 7 Active triamcinolone acetonide (KENALOG) 0.1% dental paste Triamcinolone Acetonide 0.1 % External Cream Quantity: 15; Refills: 0 Started 16-Nov-2014 Active 5 Active triamcinolone (KENALOG) 0.5 % [...] 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
== END 2024-04-08 13:08 | disposition home or self-care (01) ==
LOC: HO.HBS 13:03
PROVIDERS: PCP Internal Medicine; Visit Provider Physician Assistant Surgical
DX: E66.812 Obesity, class 2 (principal); Z68.38 Body mass index [BMI] 38.0-38.9, adult; Z90.3 Acquired absence of stomach [part of]; Z98.84 Bariatric surgery status
CPT/HCPCS: 98013

== ENCOUNTER → 2024-04-08 13:03 | Outpatient (BNVA) | payer OTHER, SELFPAY | PROVIDERS: PCP Internal Medicine; Visit Provider Physician Assistant Surgical ==

== ENCOUNTER 2024-07-01 13:39 | Outpatient (AMB) | payer OTHER, SELFPAY ==
--- NOTE | 2024-07-01 13:30 | A.OFFVIS_ITS ---
Intake Visit Reasons: TELEPHONE PO LSG 08/10/22 Allergies Seasonal Allergies Allergy (Intermediate, Verified 09/13/22 15:57) Sneezing Medication List - Last Reconciled 07/01/24 by EDER Colindres albuterol sulfate 90 mcg/actuation (ProAir HFA) 2 puffs inhalation Q6H PRN amlodipine 5 mg PO DAILY blood pressure monitor As directed cetirizine (All Day Allergy (cetirizine)) 10 mg PO DAILY cholecalciferol (vitamin D3) 50 mcg PO DAILY psyllium husk (Metamucil) 1 tbsp PO DAILY semaglutide (Ozempic) 0.5 mg subcut QWEEK simethicone 180 mg PO BID PRN HPI Comments Details: This?is a?48?yo F who is s/p LSG 08/10/2022. Presents for 1 year 10mo post op visit. Weight at last visit on 04/08/2024 was 198 pounds with a BMI of 38.7, weight today is same. No complaints of nausea, emesis, abdominal pain or reflux, or constipation. Present meal plan includes: 1 shake per day- Rebuild or Orgain with 8oz soy milk 1 ZP bar 1 Latvian yogurt 1 meal protein/veg at last visit encouraged pt to make sure she had one shake per day Exercise: has been trying to walk more, 2-3 miles [facility] Medical History (Updated 08/16/22 @ 12:06 by EDER Colindres) Intra-abdominal adhesions Preoperative cardiovascular examination Tachycardia Hx MRSA infection Vitamin B12 deficiency Adjustment disorder, unspecified Morbid obesity with BMI of 45.0-49.9, adult BMI 45.0-49.9, adult Body mass index (BMI) of 40.0 to 44.9 in adult Asthma Hypertension Seasonal allergies Anxiety IBS (irritable bowel syndrome) Type 2 diabetes mellitus Surgical History H/O: hysterectomy History of facial surgery Hx of section S/P correction of deviated nasal septum Sigmoidoscopy performed Family History Father Hypertension Diabetes mellitus Mother Hypertension Seizures Brother Hypertension Son No problems noted. Social History Household Members: Family Household Members Other:: minor child & mother Housing: Apartment Are you a primary ocular care technician to a significant other at home: Yes (minor child) Do you presently have visiting nurse or other home services: No Alcohol intake: current Alcohol intake frequency: holidays/special occasions only Patient Tobacco Use Status: Never used Tobacco service: No Current occupational status: employed Telehealth Telehealth Telehealth Platform: Telephone Location of provider rendering services: other Location of patient: address on file Patient Identification confirmed using: Name, : Yes Telehealth method: voice only Patient verbally consented to treatment: Yes Patient verbally consented to billing insurance company: Yes Patient informed of any privacy concerns related to visit: Yes Minutes spent on Phone/Video with Pt.: 16 Assessment & Plan Assessment & Plan (1) Obesity: Code(s): E66.9 - Obesity, unspecified Category: Medical (2) S/P laparoscopic sleeve gastrectomy: Code(s): Z98.84 - Bariatric surgery status Category: Surgical Plan Will try Mounjaro instead of Ozempic. If not approved, we can take over management of GLP1 from PCP. Pt will work on increasing protein intake (she does not eat meat aside from seafood)- encouraged her again to incorporate more shakes/bars into her daily meal plan. She will text me weekly with weight measurements and updates. RTC 3mo. Medications: New Mounjaro (tirzepatide) for 4 weeks 2.5 mg (0.5 mL) subcut QWEEK 2 mL 0RF NS
--- OUTSIDE RECORDS SUMMARY | 2024-07-01 15:08 | XMS_ITS | Clinical Summary ---
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 Family History Medical History Relation Name Comments [...] Info) Description 08/20/2024 1:30 PM EDT Follow-Up [facility] 2nd Floor [address] [facility], [place] [address] Vertical Lathe Operator: Tyler Coley MD [address] [place] [phone] Health Maintenance Due Date Last Done Comments Cervical Cancer Screening 1977 Cologuard 1977 Colon Cancer Screening 1977 Colonoscopy 1977 FOBT / Fit Test 1977 HPV and Pap Smear 1977 Hepatitis C Screening 1977 Pap Smear 1977 Sigmoidoscopy 1977 Pneumococcal Vaccine: Pediat varinder (0-5 Years) and At-Risk Patients (6-50 Years) (2 of 2 - PCV) 04/09/2015 04/09/2014 Mammogram 2017 COVID-19 Vaccine (4 - 4-2 5 season) 2023 02/15/2021, 05/01/2020, 04/10/2020 Alcohol/Substance Use Screening 02/28/2024 Depression Screening and Follow-Up 02/28/2024 Social Drivers of Health Yomaira ual Screening 02/28/2024 Influenza Vaccine (Season Ended) 2024 01/22/2021, 11/11/2019, 12/31/2018, Additional history exists DTaP,Tdap,and Td Vaccines (3 - Td or Tdap) 08/02/2029 08/03/2019, 10/03/2011, 12/17/2003 RSV Vaccine (60+ years old a nd patients) (1 - 1-dose 75+ series) 2052 Hepatitis B Vaccines Completed 10/28/2009, 05/28/2009, 04/27/2009 HIV Screening Completed 05/10/2018 Insurance [employer] Care Teams Improvement Lead Relationship Specialty Start Date End Date Colton Castro III, MD PCP - General 09/15/16
--- OUTSIDE RECORDS SUMMARY | 2024-07-01 15:08 | XMS_ITS | Clinical Summary ---
Author Organization [address] Address [address] [place] [phone] Phone Care Team Providers Care Records Management Technician Name Role Phone Colton Castro MD Primary Care Provider [phone] Allergies Active Allergy Reactions Criticality Noted Date Comments Other 02/24/2009 Seasonal Allergies Medications albuterol HFA (ProAir HFA) 90 mcg/actuation inhaler Take 2 puffs by mouth every 4 (four) hours if needed for wheezing (or cough). 3 Active diclofenac (VOLTAREN) 1 % topical gel Apply 1 g topically 4 (four) times a day. 4 Active fluticasone propionate (FLONASE) 50 mcg/actuation nasal spray Administer 2 sprays into each nostril 1 (one) time each day. Active crisaborole 2 % ointment Apply 1 [...] EVERY DAY 48 mL 1 4 Active nystatin (MYCOSTATIN) ointment APPLY TO AFFECTED AREA TWICE A DAY FOR 2 WEEKS 30 g 5 Active cetirizine (ZyrTEC) 10 mg tablet TAKE 1 TABLET BY MOUTH EVERY DAY 90 tablet 5 Active cholecalciferol (VITAMIN D-3) 50 mcg (2,000 unit) capsule Take 1 capsule (2,000 Units total) by mouth 1 (one) time each day. 5 Active semaglutide (Ozempic) 0.25 mg or 0.5 mg(2 mg/1.5 mL) injection pen Inject 0.5 mg under the skin every 7 (seven) days. 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 Controlled type 2 diabetes m ellitus with renal manifestation ([facility] V24, [facility] V28) 10/10/2011 Severe obesity (BMI 35.0-39. 9) with comorbidity ([facility] V24, [facility] V28) 11/03/2010 Overview (01/20/2024): BMI 51.03 on 02/22/13. Asthma 01/27/2009 Hypertension 11/27/2007 Overview (01/20/2024): She was placed on Aldomet. 11/27/2007, d/c'd 2009. Encounters Date Type Department Care Team Description 06/05/2024 9:00 AM EDT Evaluation Outpatient Rehabilitation - [address] [phone] Mak Banegas, PT Chronic right hip pain (Primary Dx); Chronic bilateral low back pain with right-sided sciatica; Chronic pain of both knees 06/05/2024 Plan of Care Documentation Outpatient Rehabilitation [address] [phone] 05/29/2024 Telephone Adult Medicine [address] [phone] Denise Mock, DEBBIE 05/27/2024 6:10 PM EDT - 05/27/2024 11:59 PM EDT Hospital Encounter Radiology Department - [address] [phone] Renal stone Discharge Disposition: Home or Self Care 05/27/2024 Telephone Adult Medicine [address] [phone] Colton Castro MD triage 05/21/2024 Telephone Adult [address] [phone] Denise Mock RN 05/21/2024 Nurse Triage [address] [phone] Colton Castro MD 05/10/2024 11:28 AM EDT - 05/10/2024 11:59 PM EDT Hospital Encounter XRAY - [address] [phone] Chronic right hip pain Discharge Disposition: Home or Self Care 05/10/2024 11:00 AM EDT Office Visit Adult Medicine [address] [phone] Vickie Minor PA Chronic right hip pain (Primary Dx); Chronic bilateral low back pain with right-sided sciatica; Chronic pain of both knees 05/08/2024 9:39 AM EDT - 05/08/2024 11:59 PM EDT Hospital [facility] [place] [id number] [place] [phone] Chronic low back pain, unspecified back pain laterality, unspecified whether sciatica present Discharge Disposition: Home or Self Care 05/08/2024 9:38 AM EDT - 05/08/2024 11:59 PM EDT Hospital Encounter [address] [phone] Chronic pain of left knee Discharge Disposition: Home or Self Care 05/08/2024 9:00 AM EDT Office Visit Adult Medicine [address] [phone] Colton Castro MD 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, without long-term current use of insulin (CMS/HCC V24, CMS/HCC V28) (Primary Dx); High cholesterol; Primary hypertension; Chronic low back pain, unspecified back pain laterality, unspecified whether sciatica present; Pes planus, unspecified laterality; Chronic pain of left knee; Obesity (BMI 30-39.9) from Last 3 Months Immunizations Name Administration Dates Next Due H1N1 Inj Preservative Free 02/13/2009 Hepatitis B (Cjexxpb-K-Odkyn , Recombivax HB-Adult) 19yo and older 10/28/2009,05/28/2009,04/27/2009 [...] Date Site/Laterality Comments FLEXIBLE SIGMOIDOSCOPY 2012 PROCEDURE: [place] SIGMOIDOSCOPY FLX DX W/COLLJ SPEC BR/WA IF [...] mellitus type 2, co ntrolled, with complications ([facility]/HCC V24, [facility] V28) DX:Diabetes mellitus type 2, controlled, with complications ([facility]) GERD (gastroesophageal reflux disease) 03/16/2017 DX:GERD (gastroesophageal [...] Tobacco: Never Tobacco Cessation:Counseling Given: Not Answered Alcohol Use Standard Drinks/Week Comments Not Currently 0 (1 standard drink = 0.6 oz pur e alcohol) Comments No Sex and Gender Information Value Date Recorded Sex Assigned at Not on file Legal Sex Female 12:15 PM EST Gender Identity Not on file Sexual Orientation Not on file Obstetrics History Last Filed Vital Signs Vital Sign Reading Time Taken Comments Blood Pressure 114/70 05/10/2024 11:02 AM EDT Pulse 78 05/10/2024 11:02 AM EDT Temperature 36.6 ??C (97.8 ??F) 05/10/2024 11:02 AM E DT Respiratory Rate 16 05/10/2024 11:02 AM EDT Oxygen Saturation 99% 05/10/2024 11:02 AM EDT Inhaled Oxygen Concentration - - Weight 97.5 kg (215 lb) 05/10/2024 11:02 AM EDT Height 160 cm (5' 3 ) 05/10/2024 11:02 AM EDT Body Mass Index 38.09 05/10/2024 11:02 AM EDT Plan of Treatment Upcoming Encounters Date Type Department Care Team (Late st Contact Info) Description 08/01/2024 10:30 AM EDT Consult Orthopedic Surgery - [place] [phone] [phone] Filemon Ramirez, DPM [address] [address] 11/20/2024 9:30 AM EDT Office Visit Adult Medicine [address] [phone] Colton Castro MD [address] [place] [phone] 12/11/2024 9:00 AM EDT Appointment Radiology Department - [address] [phone] Health Maintenance Due Date Last Done Comments Diabetes: Annual Foot Exam 09/09/1987 Diabetes: Annual Retina Eye Exam 09/09/1987 Pneumococcal Vaccine: Pediatrics (0 to 5 Years) and At-Risk Patients (6 to 64 Years) (2 of 2 - PCV) 04/09/2015 04/09/2014 Colorectal Cancer Screening: Colonoscopy 02/05/2022 Depression Screening 02/05/2022 Social Influencers of Health Screening 02/05/2022 COVID-19 Vaccine ( season) 2023 02/15/2021, 05/01/2020, 04/10/2020 Influenza Vaccine (Season Ended) 2024 01/22/2021, 11/11/2019, 12/31/2018, Additional history exists Diabetes: Blood Sugar Control Test (HGBA1C) 11/08/2024 05/08/2024, 11/01/2023, 11/01/2023 Diabetes: Annual Urine Albumin-Creatinine Ratio (uACR) 05/08/2025 05/08/2024, 06/15/2022 Diabetes: Annual GFR (Glomerular Filtration Rate) 05/08/2025 05/08/2024, 11/01/2023, 11/01/2023 Hypertension/CHF/CAD Annual BMP Blood Test 05/08/2025 05/08/2024, 11/01/2023, 11/01/2023 Breast Cancer Screening 11/21/2025 11/22/19 24, 11/22/2023, 11/15/2022, Additional history exists Cholesterol Screening (Lipid Panel) 05/08/2029 05/08/2024, 11/01/2023, 11/01/2023 DTaP,Tdap,and Td Vaccines (4 - Td or Tdap) 08/02/2029 08/03/2019, 10/03/2011, 12/17/2003 Hepatitis B Vaccines Completed 10/28/2009, 10/28/2009, 05/28/2009, [...] age to complete this topic Meningococcal B Vaccine Aged Out No l onger eligible based on patient's age to complete this topic RSV Immunization Patients Under 20 months Aged Out No longer eligible based on patient's age to complete this topic Varicella Vaccines Aged Out No longer eligible based on patient's age to complete this topic Goals Goal Patient Goal Type Associated Problems Recent Progress Patient-Stated? Author STG's 6 visits General Yes Mak Banegas, PT Note: Pt is Independent and compliant with initial HEP. Pt will perform correct technique for sup<->sit transfers w/ min VC's in 5/5 trials. Pt will report a 50% or better decrease in R hip pain during IADL's or sleeping. LTG's 12 visits General Yes Mak Banegas, PT Note: Pt will be Independent and compliant with final HEP. Pt will I demonstrate proper technique for sup<->sit transfers in 5/5 trials. Pt will report a 75% or better decrease in R hip pain during IADL's or sleeping. 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, without long-term current use of insulin (CMS/HCC V24, CMS/HCC V28) High cholesterol COMPREHENSIVE METABOLIC PANEL Routine 05/08/2024 10:14 AM EDT 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, without long-term current use of insulin (CMS/HCC V24, CMS/HCC V28) Primary hypertension MICROALBUMIN CREATININE URINE RATIO Routine 05/08/2024 10:14 AM EDT 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, without long-term current use of insulin ([facility] V24, [facility] V28) XR KNEE 4+ VIEWS LEFT Routine 05/08/2024 9:56 AM EDT Chronic pain of left knee XR LUMBAR SPINE 4+ VIEWS Routine 05/08/2024 9:55 AM EDT Chronic low back pain, unspecified back pain laterality, unspecified whether sciatica present SCREENING MAMMOGRAPHY BI 2-VIEW BREAST INC CAD Routine 11/22/2023 9:13 AM EDT Encounter for screening mammogram for malignant neoplasm of breast HEPATITIS C SCREENING Routine 01/03/2020 HIV SCREENING Routine 01/03/2020 from Last 3 Months or Most Recently Relevant to Health Maintenance Results * US Retroperitoneal Limited (05/27/2024 6:39 PM EDT) Anatomical Region Laterality Modality Body Ultrasound 05/28/2024 9:59 AM EDT Impressions 05/28/2024 10:02 AM EDT Nonobstructing left renal calculus. This corresponds to the x-ray finding. The bladder is unable to be evaluated on this exam. -------- FINAL REPORT -------- Dictated By: Tita Hughes Dictated Date: 05/28/2024 09:59 ET Assigned Physician: Tita Hughes Reviewed and Electronically Signed By: Tita Hughes Signed Date: 05/28/2024 10:02 ET Workstation ID: [id number] Transcribed By: Self Edit Transcribed Date: 05/28/2024 09:59 ET Narrative 05/28/2024 10:02 AM EDT US RETROPERITONEAL LIMITED HISTORY: ??Question right kidney stone noted on lumbar x-ray. Prior study: Lumbar spine 05/08/2024. CT abdomen pelvis 10/16/2020. FINDINGS: ??The right kidney measures 9.2 cm in length. The left kidney measures 11.1 cm in length. ??Both kidneys demonstrate normal echotexture. ?? 0.7 x 0.6 x 0.7 cm calculus lower pole left kidney. No hydronephrosis, masses, or perinephric collections are seen. The bladder is unable to be optimally evaluated due to underdistention. However, normal bilateral ureteral jets were seen in the bladder. Procedure Note Tita Hughes MD - 05/28/2024 US RETROPERITONEAL LIMITED HISTORY: Question right kidney stone noted on lumbar x-ray. Prior study: Lumbar spine 05/08/2024. CT abdomen pelvis 10/16/2020. FINDINGS: The right kidney measures 9.2 cm in length. The left kidneymeasures 11.1 cm in length. Both kidneys demonstrate normal echotexture. 0.7 x 0.6 x 0.7 cm calculus lower pole left kidney. No hydronephrosis, masses, or perinephric collections are seen. The bladder is unable to be optimally evaluated due to underdistention.However, normal bilateral ureteral jets were seen in the bladder. IMPRESSION: Nonobstructing left renal calculus. This corresponds to the x-rayfinding. The bladder is unable to be evaluated on this exam. -------- FINAL REPORT -------- Dictated By: Tita Hughes Dictated Date: 05/28/2024 09:59 ET Assigned Physician: Tita Hughes Reviewed and Electronically Signed By: Tita Hughes Signed Date: 05/28/2024 10:02 ET Workstation ID: [id number] Transcribed By: Self Edit Transcribed Date: 05/28/2024 09:59 ET us Colton Castro MD IMG US PROCEDURES Final Result * XR Hip 2-3 Views Right (05/10/2024 11:40 AM EDT) Anatomical Region Laterality Modality Lower Extremities, Hip Right Radiograp hic Imaging 05/10/2024 2:41 PM EDT Impressions 05/10/2024 2:41 PM EDT No acute fracture or dislocation of the right hip. -------- FINAL REPORT -------- Dictated By: Mckenzie Alfaro Dictated Date: 05/10/2024 14:41 ET Assigned Physician: Mckenzie Alfaro Reviewed and Electronically Signed By: Mckenzie Alfaro Signed Date: 05/10/2024 14:41 ET Workstation ID: [id number] Transcribed By: Self Edit Transcribed Date: 05/10/2024 14:41 ET Narrative 05/10/2024 2:41 PM EDT HISTORY: pain TECHNIQUE: Frontal and lateral radiographs of the right hip.An AP radiograph of the pelvis was obtained to assess joint symmetry. COMPARISON: None FINDINGS: No fracture or dislocation is seen. The hip joint is well-maintained with normal alignment. The femoral head is well-seated within the acetabulum. ??Subchondral sclerosis of the superior acetabulum. ??Large amount stool throughout the colon. Procedure Note Mckenzie Alfaro MD - 05/10/2024 HISTORY: pain TECHNIQUE: Frontal and lateral radiographs of the right hip.An APradiograph of the pelvis was obtained to assess joint symmetry. COMPARISON: None FINDINGS: No fracture or dislocation is seen. The hip joint is well-maintained withnormal alignment. The femoral head is well-seated within the acetabulum.Subchondral sclerosis of the superior acetabulum. Large amount stoolthroughout the colon. IMPRESSION: No acute fracture or dislocation of the right hip. -------- FINAL REPORT -------- Dictated By: Mckenzie Alfaro Dictated Date: 05/10/2024 14:41 ET Assigned Physician: Mckenzie Alfaro Reviewed and Electronically Signed By: Mckenzie Alfaro Signed Date: 05/10/2024 14:41 ET Workstation ID: [id number] Transcribed By: Self Edit Transcribed Date: 05/10/2024 14:41 ET us Vickie GAINES IMG XR PROCEDURES Final Resul t * (ABNORMAL) Lipid panel with reflex to direct LDL (05/08/2024 10:14 AM EDT) Cholesterol 186 0 - 200 mg/dL LAB CHEMISTRY METHOD 05/08/2024 12:58 PM EDT [facility] Triglycerides 148 0 - 150 mg/dL LAB CHEMISTRY METHOD 05/08/2024 12:58 PM EDT [facility] HDL 43 >=40 mg/dL LAB CHEMISTRY METHOD 05/08/2024 12:58 PM EDT [facility] LDL Calculated 113(H) 0 - 100 mg/dL LAB CHEMISTRY METHOD 05/08/2024 12:58 PM EDT [facility] VLDL Cholesterol Robert 29.6 mg/dL LAB CHEMISTRY METHOD 05/08/2024 12:58 PM EDT [facility] Non HDL Chol. (LDL+VLDL) 143 <145 mg/dL LAB CHEMISTRY METHOD 05/08/2024 12:58 PM EDT [facility] Chol/HDL Ratio 4.3 0.0 - 4.4 LAB CHEMISTRY METHOD 05/08/2024 12:58 PM EDT [facility] Blood Venous blood specimen / Unknown Venipuncture / Unknown 05/08/2024 10:14 AM EDT 05/08/2024 10:14 AM EDT us Colton Castro MD LAB BLOOD ORDERABLES Final Resu lt [facility] [address] [place] [address], * (ABNORMAL) Microalbumin creatinine urine ratio (05/08/2024 10:14 AM EDT) Creatinine, Urine 203.0 mg/dL LAB CHEMISTRY METHOD 05/08/2024 3:15 PM EDT [facility] Microalb, Ur 29.3(H) 0.0 - 29.0 mg/L LAB CHEMISTRY METHOD 05/08/2024 3:15 PM EDT [facility] Microalb/Crea t Ratio 14 <30 mg/g creat LAB CHEMISTRY METHOD 05/08/2024 3:15 PM EDT [facility] Urine Urine specimen obtained by clean catch procedure / Unknown Non-blood Collection / Unknown 05/08/2024 10:14 AM EDT 05/08/2024 10:14 AM EDT us Colton Castro MD LAB URINE ORDERABLES Final Resu lt Performing Organization Address [facility]/ZIP Co de Phone Number [facility] [address] [place] [address], [place] [phone] * Hemoglobin A1c (05/08/2024 10:14 AM EDT) Hemoglobin A1C 5.5 <6.5 % LAB CHEMISTRY METHOD 05/08/2024 2:02 PM EDT [facility] Mean Bld Glu Estim. 111 mg/dL LAB CHEMISTRY METHOD 05/08/2024 2:02 PM EDT [facility] Blood Venous blood specimen / Unknown Venipuncture / Unknown 05/08/2024 10:14 AM EDT 05/08/2024 10:14 AM EDT us Colton Castro MD LAB BLOOD ORDERABLES Final Resu lt Performing Organization Address [facility]/ZIP Co de Phone Number [facility] [address] [place] [address], [place] [phone] * (ABNORMAL) Comprehensive metabolic panel (05/08/2024 10:14 AM EDT) Pathologist [facility] Sodium 142 133 - 145 mmol/L LAB CHEMISTRY METHOD 05/08/2024 12:58 PM EDT [facility] Potassium 3.7 3.5 - 5.5 mmol/L LAB CHEMISTRY METHOD 05/08/2024 12:58 PM EDT [facility] Chloride 106 96 - 110 mmol/L LAB CHEMISTRY METHOD 05/08/2024 12:58 PM EDT [facility] CO2 30 21 - 32 mmol/L LAB CHEMISTRY METHOD 05/08/2024 12:58 PM [facility] Anion Gap 6 3 - 11 LAB CHEMISTRY METHOD 05/08/2024 12:58 PM [facility] Glucose 92 70 - 100 mg/dL LAB CHEMISTRY METHOD 05/08/2024 12:58 PM [facility] BUN 10 5 - 25 mg/dL LAB CHEMISTRY METHOD 05/08/2024 12:58 PM [facility] Creatinine 0.73 0.50 - 1.10 mg/dL LAB CHEMISTRY METHOD 05/08/2024 12:58 PM [facility] eGFR 103 >=60 mL/min/1. 73m2 LAB CHEMISTRY METHOD 05/08/2024 12:58 PM [facility] Comment:Calculation based on the??Chronic Kidney Disease Epidemiology Collaboration (CKD-EPI) equation refit??without adjustment for race. BUN/Creatinine Ratio 13.7 LAB CHEMISTRY METHOD 05/08/2024 12:58 PM [facility] Calcium 9.4 8.5 - 10.5 mg/dL LAB CHEMISTRY METHOD 05/08/2024 12:58 PM [facility] AST (SGOT) 27 10 - 42 unit/L LAB CHEMISTRY METHOD 05/08/2024 12:58 PM [facility] ALT (SGPT) 29 10 - 60 unit/L LAB CHEMISTRY METHOD 05/08/2024 12:58 PM [facility] Alkaline Phosphatase 136(H) 42 - 121 unit/L LAB CHEMISTRY METHOD 05/08/2024 12:58 PM [facility] Total Protein 7.7 6.0 - 8.0 g/dL LAB CHEMISTRY METHOD 05/08/2024 12:58 PM [facility] Albumin 4.2 3.2 - 5.0 g/dL LAB CHEMISTRY METHOD 05/08/2024 12:58 PM [facility] Total Bilirubin 0.9 0.0 - 1.4 mg/dL LAB CHEMISTRY METHOD 05/08/2024 12:58 PM EDT [facility] Blood Venous blood specimen / Unknown Venipuncture / Unknown 05/08/2024 10:14 AM EDT 05/08/2024 10:14 AM EDT us Colton Castro MD LAB BLOOD ORDERABLES Final Resu lt [facility] [address] [place] [address], [place] [phone] * XR Knee 4+ Views Left (05/08/2024 9:56 AM EDT) Anatomical Region Laterality Modality Lower Extremities, Knee Left Radiogra phic Imaging 05/08/2024 10:4 8 AM EDT Narrative 05/08/2024 10:49 AM EDT Left knee, 5 views. HISTORY: Knee pain with narrowing. There is slight narrowing of the joint space laterally. There are small marginal osteophytes in all compartments more prominent in the patellofemoral compartment. No evidence of fractures, dislocations or effusion. CONCLUSIONS: Degenerative changes as detailed. No fractures or dislocations. -------- FINAL REPORT -------- Dictated By: Chhaya Natarajan Dictated Date: 05/08/2024 10:48 ET Assigned Physician: Chhaya Natarajan Reviewed and Electronically Signed By: Chhaya Natarajan Signed Date: 05/08/2024 10:49 ET Workstation ID: [id number] Transcribed By: Self Edit Transcribed Date: 05/08/2024 10:48 ET Procedure Note Chhaya Natarajan MD - 05/08/2024 Left knee, 5 views. HISTORY: Knee pain with narrowing. There is slight narrowing of the joint space laterally. There are smallmarginal osteophytes in all compartments more prominent in thepatellofemoral compartment. No evidence of fractures, dislocations oreffusion. CONCLUSIONS: Degenerative changes as detailed. No fractures ordislocations. -------- FINAL REPORT -------- Dictated By: Chhaya Natarajan Dictated Date: 05/08/2024 10:48 ET Assigned Physician: Chhaya Natarajan Reviewed and Electronically Signed By: Chhaya Natarajan Signed Date: 05/08/2024 10:49 ET Workstation ID: [id number] Transcribed By: Self Edit Transcribed Date: 05/08/2024 10:48 ET us Colton Castro MD IMG XR PROCEDURES Final Result * XR Lumbar Spine 4+ Views (05/08/2024 9:55 AM EDT) Anatomical Region Laterality Modality Spine, L-spine Radiographic Liset ging 05/08/2024 10:4 6 AM EDT Narrative 05/08/2024 10:48 AM EDT Lumbosacral spine, 4 views. History pain. Radiculopathy. Comparison is prior study from 03/28/2011. Vertebral bodies and disc spaces are maintained in height. There are small discogenic spurs at L3-4 level. There is mild hypertrophy of the facet joints at L5-S1 level. There are post operative changes with clips in the left upper quadrant. There is possible ??right kidney stone measuring approximately 4 mm , confirmation with renal ultrasound is recommended. CONCLUSIONS: Mild degenerative changes in the lumbosacral spine. Possible small right kidney stone. Confirmation with renal ultrasound is recommended. Additional findings. -------- FINAL REPORT -------- Dictated By: Chhaya Natarajan Dictated Date: 05/08/2024 10:46 ET Assigned Physician: Chhaya Natarajan Reviewed and Electronically Signed By: Chhaya Natarajan Signed Date: 05/08/2024 10:48 ET Workstation ID: [id number] Transcribed By: Self Edit Transcribed Date: 05/08/2024 10:46 ET Procedure Note Chhaya Natarajan MD - 05/08/2024 Lumbosacral spine, 4 views. History pain. Radiculopathy. Comparison is prior study from 03/28/2011. Vertebral bodies and disc spaces are maintained in height. There are smalldiscogenic spurs at L3-4 level. There is mild hypertrophy of the facetjoints at L5-S1 level. There are post operative changes with clips in theleft upper quadrant. There is possible right kidney stone measuringapproximately 4 mm , confirmation with renal ultrasound is recommended. CONCLUSIONS: Mild degenerative changes in the lumbosacral spine. Possiblesmall right kidney stone. Confirmation with renal ultrasound isrecommended. Additional findings. -------- FINAL REPORT -------- Dictated By: Chhaya Natarajan Dictated Date: 05/08/2024 10:46 ET Assigned Physician: Chhaya Natarajan Reviewed and Electronically Signed By: Chhaya Natarajan Signed Date: 05/08/2024 10:48 ET Workstation ID: [id number] Transcribed By: Self Edit Transcribed Date: 05/08/2024 10:46 ET us Colton Castro MD IMG XR PROCEDURES Final Result * SCREENING MAMMOGRAPHY BI 2-VIEW BREAST INC [...] Recommendation: Routine annual screening mammography is recommended [address] [address] Procedure Note Mckenzie Alfaro MD - 12/13/2023 [...] Recommendation: Routine annual screening mammography is recommended [address] [address] Colton Castro MD IMG XR PROCEDURES Final Result * HIV Screening (01/03/2020) HIV Screening Abstracted Historical Provider HEALTH MAINTENANCE Final Result * Hepatitis C Screening (01/03/2020) Hepatitis C Screening Abstracted Historical Provider HEALTH MAINTENANCE Final Result from Last 3 Months or Most Recently Relevant to Health Maintenance Insurance [place] [address] Care Teams Records Management Technician Relationship Specialty Start Date End Date Colton Castro MD [address] [place] [id number] PCP - General 01/27/09
--- OUTSIDE RECORDS SUMMARY | 2024-07-01 15:08 | XMS_ITS | Encounter Summary ---
Author Organization [facility] [address] Care Team Providers Care Microsoft Infrastructure Consultant Name Role Phone Colton Castro MD Primary Care Provider [phone] Encounter Details Date Type Department Care Team (Late Contact Info) Description 05/29/2024 Telephone Adult Medicine [address] [phone] Denise Mock, RN Social History Tobacco Use Types Packs/Day Years [...] on file documented as of this encounter Plan of Treatment Upcoming Encounters Date Type Department Care Team (Late Contact Info) Description 08/01/2024 10:30 AM EDT Consult Orthopedic Surgery - [place] [address] [address] Filemon Ramirez, DPM [address] [address] 11/20/2024 9:30 AM EDT Office Visit Adult Medicine [address] [phone] Colton Castro MD [address] [place] [address] 12/11/2024 9:00 AM EDT Appointment Radiology Department - [address] [address] documented as of this encounter Visit Diagnoses Diagnosis Epistaxis- Primary Encounter for screening mammogram for breast cancer documented in this encounter Care Teams Microsoft Infrastructure Consultant Relationship Specialty Start Date End Date Colton Castro MD [address] [place] [address] PCP - General 01/27/09 documented as of this encounter
--- OUTSIDE RECORDS SUMMARY | 2024-07-01 15:08 | XMS_ITS | Referral Summary ---
Author Organization [facility] Address [address] [place] [address] Care Team Providers Care Network Support Manager Name Role Phone Matthew HOLDER MD, Colton Harkins Primary Care Provider [phone] Allergies No known active allergies Medications LANCING [...] D 0 7 Active nystatin ointment Nystatin 238704 UNIT/GM External Ointment Quantity: 30; Refills: 0 [...] Info) Description 08/20/2024 1:30 PM EDT Follow-Up [facility] [address] [place] [address], [place] [address] Center Rep: Aysha Ortega, Tyler Arredondo MD [address] [place] [address] Insurance [facility] Care Teams Network Support Manager Relationship Specialty Start Date End Date Colton Castro III, MD PCP - General 09/15/16
--- OUTSIDE RECORDS SUMMARY | 2024-07-01 15:08 | XMS_ITS | Encounter Summary ---
Author Organization [facility] Address [address] [place] [address] Care Team Providers Care Dielectric Tester Name Role Phone Matthew HOLDER MD, Colton Harkins Primary Care Provider [phone] Reason for Visit * Reason Onset Date Comments Nevus 01/04/2021 Encounter Details Date Type Department Care Team (Late st Contact Info) Description 01/04/2021 Telephone [facility] Central Scheduling Department [address] [place] [address] Telephone Intake, Staff Nevus Social History Tobacco [...] available Warm transferred [place] Change [place] ext [phone] documented in this encounter Plan of Treatment Upcoming Encounters Date Type Department Care Team (Late st Contact Info) Description 08/20/2024 1:30 PM EDT Follow-Up [facility] 2nd Floor [address] [facility], Second Floor [place], [place] [id number] Edge Cutting Machine Operator: Aysha Ortega, Tyler Arredondo MD [address] [place] [phone] documented as of this encounter Visit Diagnoses Not on filedocumented in this encounter Care Teams Dielectric Tester Relationship Specialty Start Date End Date Colton Castro III, MD PCP - General 09/15/16 documented as of this encounter
== END 2024-07-01 13:48 | disposition home or self-care (01) ==
LOC: HO.HBS 13:39
PROVIDERS: PCP Internal Medicine; Visit Provider Physician Assistant Surgical
DX: E66.9 Obesity, unspecified (principal); Z98.84 Bariatric surgery status
CPT/HCPCS: 99214

== ENCOUNTER → 2024-07-01 13:39 | Outpatient (BNVA) | payer OTHER, SELFPAY | PROVIDERS: PCP Internal Medicine; Visit Provider Physician Assistant Surgical ==

== ENCOUNTER 2024-12-20 11:47 | Outpatient (AMB) | payer OTHER, SELFPAY ==
--- NOTE | 2024-12-20 11:31 | A.OFFVIS_ITS ---
VS Expanded 12/20/24 11:33 Height 5 ft 3 in Weight 190 lb BMI 33.7 Intake Visit Reasons: TELEPHONE PO LSG 08/10/22 Allergies Seasonal Allergies Allergy (Intermediate, Verified 09/13/22 15:57) Sneezing Medication List - Last Reconciled 12/20/24 by EDER Colindres albuterol sulfate 90 mcg/actuation (ProAir HFA) 2 puffs inhalation Q6H PRN amlodipine 5 mg PO DAILY Held on 08/11/22. Instructions: Resume on 08/12/22. Check your blood pressure every evening and send it to Dr. Frederick. Don't take this medication before he gets back to you. Don't take the medication if blood pressure is below 120/70. blood pressure monitor As directed cetirizine (All Day Allergy (cetirizine)) 10 mg PO DAILY cholecalciferol (vitamin D3) 50 mcg PO DAILY psyllium husk (Metamucil) 1 tbsp PO DAILY simethicone 180 mg PO BID PRN tirzepatide (Mounjaro) 10 mg (0.5 mL) subcut QWEEK HPI Comments Details: This?is a?48?yo F who is s/p LSG 08/10/2022. Presents for 2 year 4mo post op visit. Weight at last visit on 07/01/2024 was 198 pounds; weight loss of 8lb since last OV. No complaints of emesis, abdominal pain or reflux, or constipation. Occasional nausea the day after she takes injection. Continues on Mounjaro, currently on 10mg. Recently had labs done by PCP; cholesterol was slightly high, but was not started on anything. Having a colonoscopy next week. I corrected her height today- she states she is 5'3 . Present meal plan includes: 1 shake per day- Rebuild or Orgain with 8oz soy milk 1 ZP bar 1 Austrian yogurt 1 meal protein/veg Exercise: has been trying to walk more, 2-3 miles; notes she has been working a lot, gets steps in but less walking for exercise She does have some excess skin of abdomen. Notes rashes of skin folds. She has to wear compressive tank tops at all times to help hold the skin in place. She cannot wear jeans due to inability to find properly fitting ones that accommodate both the excess skin and the size of the rest of her lower body. [facility] Medical History (Updated 08/16/22 @ 12:06 by EDER Colindres) Intra-abdominal adhesions Preoperative cardiovascular examination Tachycardia Hx MRSA infection Vitamin B12 deficiency Adjustment disorder, unspecified Morbid obesity with BMI of 45.0-49.9, adult BMI 45.0-49.9, adult Body mass index (BMI) of 40.0 to 44.9 in adult Asthma Hypertension Seasonal allergies Anxiety IBS (irritable bowel syndrome) Type 2 diabetes mellitus Surgical History H/O: hysterectomy History of facial surgery Hx of section S/P correction of deviated nasal septum Sigmoidoscopy performed Family History Father Hypertension Diabetes mellitus Mother Hypertension Seizures Brother Hypertension Son No problems noted. Social History Household Members: Family Household Members Other:: minor child & mother Housing: Apartment Are you a primary lead caregiver to a significant other at home: Yes (minor child) Do you presently have visiting nurse or other home services: No Alcohol intake: current Alcohol intake frequency: holidays/special occasions only Patient Tobacco Use Status: Never used Tobacco service: No Current occupational status: employed Telehealth Telehealth Telehealth Platform: Telephone Location of provider rendering services: practice address Location of patient: address on file Patient Identification confirmed using: Name, : Yes Telehealth method: voice only Patient verbally consented to treatment: Yes Patient verbally consented to billing insurance company: Yes Patient informed of any privacy concerns related to visit: Yes Minutes spent on Phone/Video with Pt.: 15 Assessment & Plan Assessment & Plan (1) Obesity: Code(s): E66.9 - Obesity, unspecified Category: Medical (2) S/P laparoscopic sleeve gastrectomy: Code(s): Z98.84 - Bariatric surgery status Category: Surgical Plan Suggested swapping bar for her shake instead since shake is not always tolerated well; pt agreeable to this. Refilled Mounjaro today; she will hold at least 1w prior to colonoscopy. She will work on increasing formal exercise. Vitamin labs ordered. Clotrimazole ointment ordered for rashes of excess skin. Discussed BMI target of less than 27 which is weight of 152lbs for her. RTC 4mo. Orders: Orders Vitamin D 25-OH Total Today Z98.84 - Bariatric surgery status Zinc Today Z98.84 - Bariatric surgery status Vitamin B12 and Folate Today Z98.84 - Bariatric surgery status Vitamin B1 Today Z98.84 - Bariatric surgery status Vitamin A Today Z98.84 - Bariatric surgery status Medications: New clotrimazole 1% 1 appl topical BID 45 grams 3RF Refilled tirzepatide (Mounjaro) 10 mg (0.5 mL) subcut QWEEK 2 mL 0RF
[2024-12-20 11:33] VITALS: BMI 33.7
--- OUTSIDE RECORDS SUMMARY | 2024-12-20 14:07 | XMS_ITS | Encounter Summary ---
Author Organization [facility] Address [address] [place] [address] Care Team Providers Care Clinical Rn Name Role Phone Matthew HOLDER MD, Colton Harkins Primary Care Provider [phone]- [phone] Reason for Visit * Reason Onset Date Comments Nevus 01/04/2021 Encounter Details Date Type Department Care Team (Late st Contact Info) Description 01/04/2021 Telephone [facility] Central Scheduling Department [address] [place] [phone] Telephone Intake, Staff Nevus Social History Tobacco Use Types Packs/Day Years Used Date Smoking Tobacco: Never Smokeless Tobacco: Never Comments:: Comments Unknown Sex and Gender Information Value Date Recorded Sex Assigned at Female 11/20/2024 5:30 PM EDT Legal Sex Female 7:31 AM EDT Gender [...] available Warm [place] Change [place] ext [phone] documented in this encounter Plan of Treatment Upcoming Encounters Date Type Department Care Team (Late st Contact Info) Description 01/07/2025 1:15 PM EST Procedure visit [facility] [address] [place] [address], [place] [address] Ichthyologist: Tyler Coley MD [address] [place] [address] 02/25/2025 1:00 PM EST Procedure visit [facility] [address] [place] [address], [place] [address] Ichthyologist: Tyler Coley MD [address] [place] [address] documented as of this encounter Visit Diagnoses Not on filedocumented in this encounter Care Teams Clinical Rn Relationship Specialty Start Date End Date Colton Castro III, MD PCP - General 09/15/16 documented as of this encounter
--- OUTSIDE RECORDS SUMMARY | 2024-12-20 14:08 | XMS_ITS | Data Portability ---
Author Organization [place] [facility] Address [address] [place] [phone] Care Team Providers Care Industrial Maintenance Millwright Name Role Phone BIN LUND Primary Care Provider Assessment No assessment recorded. Plan of Treatment Reminders Order Date Submit Date Provider Last Modified By Organization Details Last Modified Time Details Appointments None record ed. Lab None record ed. Referral None record ed. Procedures None record ed. Surgeries None record ed. Imaging None record ed. Medication Orders None record ed. Patient TargetsNo targets recorded. Patient Instructions Encounter Date Encounter Id Patient Instructions Last Modified By Organization Details Last Modified Time 07/11/2024 [id number] Patient with history of septal perforation following septoplasty in 2013. 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 She had bleeding which may have been exacerbated by using fluticasone nasal spray for her allergies. We discussed that given the septal perforation and the involvement of the nasal mucosa by the port wine stain, I would avoid nasal steroids. I would use saline solution 4-5 times per day, K-Y jelly in the nose and Ponaris nasal emollient. She can use bleed cease for any acute episodes. She is interested in an alternative to CPAP for her obstructive sleep apnea. She will obtain a copy of her most recent sleep study we will make her an appointment with Dr. Gonzalez to discuss the inspire procedure [email or web address] Not available 07/11/2024 15:19:37 Reason for Referral None Reported. 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 [place] Nevus; Note: Date Diagnosed: 02/26/2018 12:50 PM (Q82.5) Not Available [facility] 4 02:30:22 Bleeding from nose 513775330 Active 2017 Epistaxis; Note: Date Diagnosed: 02/26/2018 12:49 PM (R04.0) Not Available [facility] 4 02:30:33 Obstructi ve sleep apnea syndrome 28417037 Active 2024 JAMAL JAMES MD [address] [place] [address], [place], [phone] , [place] - [facility] 5 15:17:25 Recurrent bleeding of nose Active 2024 JAMAL JAMES MD [address] [place] [address], [place], [phone] , [place] - [facility] 5 15:17:40 Perforati on of nasal septum 99404937 Active 2024 JAMAL JAMES MD [address] [place] [address], [place], [phone] , [place] - [facility] 5 15:17:45 Port-wine stain of skin 212493413 Active 2024 JAMAL JAMES MD [address] [place] [address],[place] [address], [place], [phone] , [place] - [facility] 5 15:17:56 Problem Notes None recorded. Procedures Surgical History Date Name Laterality Status Provider Name and Address Organization Details Recorded Time 08/27/2024 FOL_DP cancelled MELLO GONZALEZ MD [address] [place] [address], [phone], [facility] - [facility] 08/27/2024 12:31:03 Imaging Results None recorded. Procedure Notes None recorded. Medical Equipment None Reported. Medications Name Sig Start Date Stop Date Status Note LastModified by Organization Details LastModified Time cyclobenz aprine 10 mg tablet TAKE 1 TABLET BY MOUTH THREE TIMES A DAY FOR 5 DAYS 07/11 completed Not Available Not Available Not Available budesonid e 32 mcg/actua tion nasal spray 07/11 completed Medicati on ID: [id number] B rand Name: budesoni de Send Method: E-Prescr ibed Sub s Allowed: subs OK Medic ationGen ericName : budesoni de Not Available Not Available Not Available metformin 500 mg tablet 07/11 completed Medicati on ID: [id number] D uration Value: 90 Brand Name: metformi n Send Method: E-Prescr ibed Sub s Allowed: subs OK Speci al Instruct ion: TK 2 TS PO BID WC Medic ationGen ericName : metformi n Not Available Not Available Not Available cetirizin e 10 mg tablet TAKE 1 TABLET BY MOUTH 1 TIME EACH DAY. active Not Available Not Available No t Available nystatin 100,000 unit/gram topical ointment active Not Available Not Available Not Available simethico ne 180 mg capsule TAKE 1 CAPSULE ORALLY 2 TIMES A DAY NEEDED FOR ABDOMINA L DISTENTI ON 07/11 completed Not Available Not Available Not Available clobetaso l 0.05 % topical cream 12/05 completed Medicati on ID: [id number] D uration Value: 25 Brand Name: clobetas ol Send Method: E-Prescr ibed Sub s Allowed: subs OK Medic ationGen ericName : clobetas ol Not Available Not Available Not Available amlodipin e 5 mg tablet active Not Available Not Available Not Available norethind arleth (contrace ptive) 0.35 mg tablet 12/05 completed Medicati on ID: [id number] D uration Value: 56 Brand Name: norethin drone (contrac eptive) Send Method: E-Prescr ibed Sub s Allowed: subs OK Medic ationGen ericName : norethin drone (contrac eptive) Not Available Not Available Not Available lisinopri l 40 mg tablet 07/11 completed Medicati on ID: [id number] D uration Value: 90 Brand Name: lisinopr il Send Method: E-Prescr ibed Sub s Allowed: subs OK Speci al Instruct ion: TK 1 T PO D Medica tionGene ricName: lisinopr il Not Available Not Available Not Available fluticaso ne propionat e 50 mcg/actua tion nasal spray,jenae pension active Not Available Not Available Not Available amlodipin e 07/11 completed Not Available Not Available Not Available Ranitidin e Hcl 12/05 completed Medicati on ID: [id number] D uration Value: 83 Brand Name: ranitidi ne hcl Send Method: E-Prescr ibed Sub s Allowed: subs OK Medic ationGen ericName : ranitidi ne hcl Not Available Not Available Not Available diclofena c 1 % topical gel active Not Available Not Available Not Available cholecalc iferol (vitamin D3) 50 mcg (2,000 unit) capsule TAKE 1 CAPSULE BY MOUTH EVERY DAY active Not Available Not Available No t Available Mounjaro 5 mg/0.5 mL subcutane ous pen injector INJECT 0.5 ML (5 MG) SUBCUTAN EOUSLY WEEKLY active Not Available Not Available No t Available Mounjaro 2.5 mg/0.5 mL subcutane ous pen injector INJECT 1 PEN (2.5 MG) UNDER THE SKIN ONCE WEEKLY FOR 4 WEEKS active Not Available Not Available No t Available Ozempic 0.25 mg or 0.5 mg (2 mg/3 mL) subcutane ous pen injector INJECT 0.25 MG SUBCUTAN EOUSLY ONE TIME PER WEEK 07/11 completed Not Available Not Available Not Available Vitals Date Recorded Body height Body mass index (BMI) Body weight Provider Name and Address Organization Details Last Updated DateTime 07/11/2024 160.02 cm 36.3 kg/m2 39033.44 g Rashida Lopez [place] - [facility] 07/11/2024 14:57:54 Social History Question Answer Notes LastModified by Organizat ion Details LastModified Time Tobacco Smoking Status Never Smoker Rashida cavanaugh [place] - [facility] 07/11/2024 15:23:00 How Many Years Have You Consumed Alcohol? 25 Information not available 07/11/2024 What Type Of Rn Procedures Do You Use? None [email or web address] Information not available 07/11/2024 How Many Alcoholic Drinks Do You Consume Per Day On Average? 0 [email or web address] Information not available 07/11/2024 Which Illicit Or Recreational Drugs Have You Used? Marijuana [email or web address] Information not available 07/11/2024 How Many Years Have You Used Illicit Or Recreational Drugs? 20 [email or web address] Information not available 07/11/2024 Do You Have Any Pets? Yes [email or web address] Information not available 07/11/2024 Are You Passively Exposed To Smoke? Yes [email or web address] Information no t available 07/11/2024 Are There Any Smokers In Your House? No [email or web address] Information not available 07/11/2024 Have You Used IV Drugs? No Information not available 07/11/2024 Sex: Unknown Functional Status Question Answer Note LastModified by Organization Details LastModified Time How many times per week do you consume alcohol? Less than 1 time per week [email or web address] Inform ation not available 07/11/2024 Do you use any illicit or recreational drugs? Yes Information not available 07/11/2024 Do you or have you ever used any other forms of tobacco or nicotine? No Information not available 07/11/2024 What is your level of alcohol consumption? 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 noExposureToExcessiveNoise Infor mation not available 07/11/2024 Mental Status None recorded. Family History Nothing Reported. Medical History Condition Response Allergies/Hayfever Y Heart Problems N Anxiety N Tonsil Infections N Emphysema N Migraines N Thyroid Problems N Glaucoma N Developmental Delay N Depression N COPD N Nasal or Sinus Problems Y Anemia N Immune System Disorder N Anesthesia Complications N Heart Attack ([place]) N Other Skin Condition N Diabetes Y Rhinitis N Bleeding Disorder N Food Allergy N Hearing Loss N Arthritis N Hyperlipidemia N Cancer N Stroke N Dementia N Nasal polyps N Asthma Y Sleep Disorder Y High Cholesterol Y GERD/Reflux Y Liver Disease N Headaches N Fibromyalgia N Hypertension Y Speech Delay N Kidney Disease N Gynecological HistoryNo gynecological history recorded. Obstetrics History GPAL:G 0 P 0 0 0 0 Past Encounters Encounter ID Performer Location Encounter Start Date Encounter Closed Date Diagnosis/Indication Diagnosis SNOMED-CT Code Diagnosis ICD10 Code Diagnosis IMO Codes Diagnosis Note [id number] JAMAL JAMES MD [facility] [address] [address] 07/11/2024 14:34:04 07/11/2024 15:23:17 Obstructive sleep apnea syndrome 94079080 G47.33 928363 Recurrent bleeding of nose 7274417786 102 R04.0 61291305 Perforatio n of nasal septum 97210185 J34.89 526958 Port-wine stain of skin 766839829 Q82.5 44039 Health Concerns Section Related Observation LastModified by Organization Detai ls LastModified Time None Recorded Concern Status LastModified by Organization Details LastModified Time None Recorded Advance Directives Directive None Recorded Payers Insurance Date Sequence Insurance Name Policy Number Policy Teixeira Covered Member ID Teixeira Member ID Guarantor Name 08/27/2024 1 [facility] [id number] 01 Kaity Graham [id number] Kaity Graham Notes Date Note Type Note Provider Name and Address Organization Details Recorded Time 07/11/2024 text/html ROS as noted in the HPI 48 yr old female presents for evaluation of epistaxis.Last episode In [facility] and [place] She was seen for this in 2018 and was noted to have a septal perforation.Conser vative treatment was recommended. For the past 3 weeks, she reports having left sided nose bleeds. She reports nosebleed today on the leftafter blowing her nose. She has been using Vaseline in the nose. Denies use of blood thinners. Denies nasal trauma.She has a large right sided facial port-wine stain and undergoes laser treatment with a [facility] in [place]. Treatment was been put on hold due to the pandemic.History of septoplasty with Dr. Cobos in 2014. She has been told she has a small septal perforation. JAMAL GUILLEN MD [address] [place] [address], [place], [phone], [facility] - [facility] 07/11/2024 15:34:03 OBGyn Episode No OBEpisode recorded.
--- OUTSIDE RECORDS SUMMARY | 2024-12-20 14:08 | XMS_ITS | Clinical Summary ---
Author Organization [facility] Address [address] [place] [address] Care Team Providers Care Train Director Name Role Phone Matthew HOLDER MD, Colton Harkins Primary Care Provider [phone] Allergies No known active allergies Medications LANCING [...] D 0 7 Active nystatin ointment Nystatin 147937 UNIT/GM External Ointment Quantity: 30; Refills: 0 [...] Take 10 mg by mouth. 7 Active Custom Compounded MedicationIndi cations:Congen ital non-neoplastic nevus Lidocaine-tetraca ine (plasticized) 23%- 7% ointment. Dispense one 2 oz jar. Apply to face one hour prior to laser. Avoid applying near eye. 1 each 5 8 Active desogestrel-et hinyl estradiol (APRI) 0.15-0.03 mg per [...] by mouth once a day. 2 Active simethicone (MYLICON,GAS-X ) 180 mg capsule As needed 5 Active lidocaine-pril ocaine (EMLA) creamIndicatio ns:Congenital non-neoplastic nevus Apply thickly to area 1-2 hours prior to procedure and occlude with Tegaderm. 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 Encounters Date Type Department Care Team Description 12/04/2024 Results Follow-Up [facility] [address] [place] [address] Football Scout: Tyler Deng MD 11/26/2024 Telephone [facility] 2nd Floor [address] [facility], [place] [address] Football Scout: Tyler Coley MD 11/20/2024 6:00 PM EDT Procedure visit [facility] 2nd Floor [address] [facility], [place], [place] [id number] Football Scout: Tyler Coley MD Port-wine birthmark of face (Primary Dx); Vascular neoplasm of skin from Last 3 Months Family History Medical [...] Description 01/07/2025 1:15 PM EST Procedure visit [facility] 2nd Floor [address] [place] [address], [place] [address] Football Scout: Tyler Coley MD [address] [place] [address] [phone] 02/25/2025 1:00 PM EST Procedure visit [facility] 2nd Floor [address] [place] [address], [place] [address] Football Scout: Tyler Coley MD [address] [place] [phone] Health Maintenance Due Date Last Done Comments Cervical Cancer Screening 1977 Cologuard 1977 Colonoscopy 1977 HPV and Pap Smear 1977 Hepatitis C Screening 1977 Pap Smear 1977 Sigmoidoscopy 1977 Pneumococcal Vaccine: Pediat varinder (0-5 Years) and At-Risk Patients (6-50 Years) (2 of 2 - PCV) 04/09/2015 04/09/2014 Mammogram 2017 Alcohol/Substance Use Screening 02/28/2024 Depression Screening and Follow-Up 02/28/2024 Social Drivers of Health Yomaira ual Screening 02/28/2024 COVID-19 Vaccine (4 - 2024-2 6 season) 2024 02/15/2021, 05/01/2020, 04/10/2020 Influenza Vaccine (#1) 2024 , 11/11/2019, 12/31/2018, Additional history exists Basic Metabolic Panel 11/20/2025 11/20/2024 , 05/08/2024, 12/31/2018, Additional history exists Colon Cancer Screening 11/20/2025 FOBT / Fit Test 11/20/2025 11/20/2024, 05/08/2024 DTaP,Tdap,and Td Vaccines (3 - Td or Tdap) 08/02/2029 08/03/2019, 10/03/2011, 12/17/2003 RSV Vaccine (60+ years old a nd patients) (1 - 1-dose 75+ series) 2052 Hepatitis B Vaccines Completed 10/28/2009, 05/28/2009, 04/27/2009 HIV Screening Completed 05/10/2018 Procedures * Due to [place] [employer] law, this organization might not be sharing negative HIV tests. Procedure Name Priority Date/Time Associated Diagnosis Comments TISSUE EXAM Routine 11/20/2024 6:25 PM EDT Vascular neoplasm of skin from Last 3 Months Results * Due to [place] [employer] law, this organization might not be sharing negative HIV tests. * Tissue Exam (11/20/2024 6:25 PM EDT) Final Diagnosis Skin, Right Cheek and Forehead, Shave Biopsy: - Benign angiomatous nodules (x5), transected extending to the tissue edges. [employer] [facility] 11/22/2024 3:09 PM EDT [facility] at 1509 EDT Clinical History Specimen 1: 49 y.o. female with a large port wine stain with 5 vascular blebs on the R cheek & forehead Other Vascular blebs from [id number] [employer] [facility] 11/22/2024 3:09 PM EDT [facility] Gross Description 1. Skin, 49 y.o. female with a large port wine stain with 5 vascular blebs on the R cheek & forehead Received in formalin, labeled the patient's name, MRN, date of , and 49-year-old female with large port 1 stained with 5 vascular blebs on the R cheek and forehead , are 5 hines, irregular skin shaves (ranging from 0.4 x 0.3 x 0.1 cm to 0.5 x 0.4 x 0.1 cm), which are differentially inked blue, orange, green, red, and yellow. Each skin shave is bisected and entirely submitted in cassettes 1A-1C. [facility] 11/22/2024 3:09 PM EDT [facility] Gross Description User Grossing complete by Renetta Potts on 11/21/2024 12:41 PM [facility] 11/22/2024 3:09 PM EDT [facility] Embedded Images [facility] 11/22/2024 3:09 PM EDT [facility] Resulting Agency Case was signed out at [facility], Department of Pathology, [employer] 3 CLIA [id number] [facility] 11/22/2024 3:09 PM EDT [facility] Report Header Surgical Pathology Report Case: [id number] Authorizing Provider: Tyler Ortega MD Collected: 11/20/20241824 Ordering Location: [facility] Received: 11/20/[address] [place] [address] Dermatology Clinic 2nd Floor Pathologist: Varinder Sexton, Specimen: Skin, 49 y.o. female with a large port wine stain with 5 vascular blebs on the R cheek & forehead 11/22/2024 3:09 PM EDT [facility] Skin Specimen from skin / Unknown 11/20/2024 6:25 PM EDT 11/20/2024 7:54 PM EDT us Tyler Ortega MD LAB PATHOLOGY/CYTOLOGY ORDERABL ES Final Result [facility] [address] [place] [id number], from Last 3 Months Insurance [facility] Care Teams Train Director Relationship Specialty Start Date End Date Colton Castro III, MD PCP - General 09/15/16
--- OUTSIDE RECORDS SUMMARY | 2024-12-20 14:08 | XMS_ITS | Encounter Summary ---
Author Organization [facility] [address] Care Team Providers Care Hand Surgeon Name Role Phone Colton Castro MD Primary Care Provider [phone] Encounter Details Date Type Department Care Team ([facility] Contact Info) Description 05/29/2024 Telephone Adult Medicine [address] [phone] Denise Mock, DEBBIE Social History Tobacco Use Types Packs/Day Years [...] Department Care Team (Late Contact Info) Description 01/06/2025 9:30 AM EST Appointment [facility] [address] [place] [phone] Monty Duke MD [address] [address] 06/10/2025 9:30 AM EDT Office Visit Adult Medicine [address] [phone] Colton Castro MD [address] [place] [address] documented as of this encounter Visit Diagnoses Diagnosis Epistaxis- Primary documented in this encounter Care Teams Hand Surgeon Relationship Specialty Start Date End Date Colton Castro MD [address] [place] [phone] PCP - General 01/27/09 documented as of this encounter
--- OUTSIDE RECORDS SUMMARY | 2024-12-20 14:08 | XMS_ITS | Clinical Summary ---
Author Organization [facility] [address] [facility] Address [address] [place] [phone] Phone Care Team Providers Care Leaf Binner Name Role Phone Colton Castro MD Primary Care Provider [phone] Allergies Active Allergy Reactions Criticality Noted Date Comments Other 02/24/2009 Seasonal Allergies Medications albuterol HFA (ProAir HFA) 90 mcg/actuation inhaler Take 2 puffs by mouth every 4 (four) hours if needed for wheezing (or cough). 05/25/19 23 Active diclofenac (VOLTAREN) 1 % topical gel Apply 1 g topically 4 (four) times a day. 03/07/19 24 Active OneTouch Ultra Test test strip Use to test blood sugar once daily 09/03/19 23 Active fluticasone propionate (FLONASE) 50 mcg/actuation nasal spray SPRAY TWICE IN EACH NOSTRIL EVERY DAY 48 mL 1 02/22/20 24 Active Additional Information Patient not taking.Reported on 11/20/2024 cholecalcifero l (VITAMIN D-3) 50 mcg (2,000 unit) capsule Take 1 capsule (2,000 Units total) by mouth 1 (one) time each day. 04/25/19 25 Active Mounjaro 2.5 mg/0.5 mL injection INJECT 1 PEN (2.5 MG) UNDER THE SKIN ONCE WEEKLY FOR 4 WEEKS Active cetirizine (ZyrTEC) 10 mg tablet TAKE 1 TABLET BY MOUTH 1 TIME EACH DAY. 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 Controlled type 2 diabetes m ellitus with renal manifestation (CMS/HCC V24, [facility] V28) 10/10/2011 Severe obesity (BMI 35.0-39. 9) with comorbidity (CMS/HCC V24, [facility] V28) 11/03/2010 Overview (01/20/2024): BMI 51.03 on 02/22/13. Asthma 01/27/2009 Hypertension 11/27/2007 Overview (01/20/2024): She was placed on Aldomet. 11/27/2007, d/c'd 2009. 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 [address] [facility] [address] [place] [address] Monty Duke MD 10/08/2024 1:00 PM EDT Consult Orthopedic Surgery - [place] [address] [facility] [address] [place] [address] Filemon Ramirez, DPM Metatarsalgia of both feet (Primary Dx); Pes planus, unspecified laterality from Last 3 Months Immunizations Immunization Administration Dates Next Due H1N1 Inj Preservative Free 02/13/2009 Hepatitis B (Xyuyyag-G-Vuujp , Recombivax HB-Adult) 19yo and older 10/28/2009,05/28/2009,04/27/2009 [...] Date Site/Laterality Comments FLEXIBLE SIGMOIDOSCOPY 2012 PROCEDURE: IL SIGMOIDOSCOPY FLX DX W/COLLJ SPEC BR/WA IF [...] mellitus type 2, co ntrolled, with complications (CMS/HCC V24, [facility]/HCC V28) DX:Diabetes mellitus type 2, controlled, with complications ([facility]) GERD (gastroesophageal reflux disease) 03/16/2017 DX:GERD (gastroesophageal reflux disease) GERD (gastroesophageal reflux disease) 03/16/2017 DX:GERD (gastroesophageal reflux disease) 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 DX:Port- wine stain of skin Family History Medical History Relation Name Comments Breast cancer Aunt 2 pat pat x2 Hypertension Father sleep apnea Diabetes Maternal Grandfather CHF Stroke Maternal Grandfather Arthritis Maternal Grandmother Other: thyroid cancer Mother's side Cataracts Paternal Grandfather Diabetes Paternal Grandfather CHF Blindness Neg Hx Glaucoma Neg Hx Macular degeneration Neg Hx Strabismus Neg Hx Relation Name Status Comments Aunt 2 pat Brother Alive Father Alive Maternal Grandfather Alive [...] Sexual Orientation Not on file Obstetrics History Para Term AB IAB SAB Ectopic Multiple Livin g Live Births 2 2 1 1 1 1 Date Outcome GA Total Labor Labor/2nd/3rd Weight Sex Type Anes PTL Myrna A1 A5 Name Clin Term 2007 36w 0d 2800 g (98.8 oz) M CS-Un spec Spinal Livin g 8 9 Ted Garcia Delivery Location:[facility] Comments:Oligohydramni os; gestational diabetes; hypertension Last Filed Vital Signs Vital Sign Reading Time Taken Comments Blood Pressure 112/72 11/20/2024 9:24 AM EDT Pulse 84 11/20/2024 9:24 AM EDT Temperature 36.4 C (97.6 F) 11/20/2024 9:24 AM EDT Respiratory Rate 14 11/20/2024 9:24 AM EDT Oxygen Saturation 98% 11/20/2024 9:24 AM EDT Inhaled Oxygen Concentration - - Weight 90.7 kg (200 lb) 11/20/2024 9:24 AM EDT Height 160 cm (5' 3 ) 11/20/2024 9:24 AM EDT Body Mass Index 35.43 11/20/2024 9:24 AM EDT Plan of Treatment Upcoming Encounters Date Type Department Care Team (Late st Contact Info) Description 01/06/2025 9:30 AM EST Appointment [facility] Endoscopy [address] [place] [phone] Monty Duke MD [address] [address] 06/10/2025 9:30 AM EDT Office Visit Adult Medicine [address] [phone] Colton Castro MD [address] [place] [address] Health Maintenance Due Date Last Done Comments Colorectal Cancer Screening: Colonoscopy 1977 Diabetes: Annual Foot Exam 09/09/1987 Diabetes: Annual Retina Eye Exam 09/09/1987 Pneumococcal Vaccine: Pediatrics (0 to 5 Years) and At-Risk Patients (6 to 49 Years) (2 of 2 - PCV) 04/09/2015 04/09/2014 Social Influencers of Health Screening 02/05/2022 Depression Screening 02/28/2024 COVID-19 Vaccine ( season) 2024 02/15/2021, 05/01/2020, 04/10/2020 Influenza Vaccine (#1) 2024 , 11/11/2019, 12/31/2018, Additional history exists Diabetes: Blood Sugar Control Test (HGBA1C) 05/20/2025 11/20/2024, 05/08/2024, 11/01/2023, Additional history exists Diabetes: Annual Urine Albumin-Creatinine Ratio (uACR) 11/20/2025 11/20/2024, 05/08/2024, 06/15/2022 Diabetes: Annual GFR (Glomerular Filtration Rate) 11/20/2025 11/20/2024, 05/08/2024, 11/01/2023, Additional history exists Hypertension/CHF/CAD Annual BMP Blood Test 11/20/2025 11/20/2024, 05/08/2024, 11/01/2023, Additional history exists Breast Cancer Screening 12/11/2026 12/12/19, 11/22/2023, 11/22/2023, Additional history exists DTaP,Tdap,and Td Vaccines (4 - Td or Tdap) 08/02/2029 08/03/2019, 10/03/2011, 12/17/2003 Cholesterol Screening (Lipid Panel) 11/20/2029 11/20/2024, 05/08/2024, 11/01/2023, Additional history exists RSV Immunization Adult Patients (1 - 1-dose 75+ series) 2052 Hepatitis B Vaccines Completed 10/28/2009, 10/28/2009, 05/28/2009, Additional history exists HIV Screening Completed 07/31/2024, 01/03/2020 Hepatitis C Screening Completed 07/31/2024, 020 HIB Vaccines Aged Out No longer eligi [...] R hip pain during IADL's or sleeping. 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, without long-term current use of insulin ([facility] V24, [facility] V28) LIPID PANEL WITH REFLEX TO DIRECT LDL Routine 11/20/2024 10:06 AM EDT High cholesterol COMPREHENSIVE METABOLIC PANEL Routine 11/20/2024 10:06 AM EDT 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, without long-term current use of insulin ([facility] V24, [facility] V28) Primary hypertension MICROALBUMIN CREATININE URINE RATIO Routine 11/20/2024 10:06 AM EDT 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, without long-term current use of insulin ([facility] V24, [facility] V28) XR FOOT 3+ VIEWS BILAT Routine 1:02 PM EDT Pes planus, unspecified laterality HEPATITIS C ANTIBODY Routine 07/31/2024 10:20 AM EDT Encounter for screening for viral disease HIV 1, 2 ANTIBODY, P24 ANTIGEN WITH REFLEX TO DIFFERENTIATION Routine 07/31/2024 10:20 AM EDT Encounter for screening for viral disease from Last 3 Months or Most Recently Relevant to Health Maintenance Results * MG Mammo Digital Screening w Hussain bilat (12/11/2024 9:35 AM EDT) Anatomical Region Laterality Modality Breast Bilateral Mammography 12/12/2024 8:59 AM EDT Impressions 12/12/2024 9:04 AM EDT No mammographic evidence for malignancy. BI-RADS CATEGORY: 2 - BENIGN RECOMMENDATION: Screening bilateral mammogram is recommended in 1 year. Mammo Location: [place] [facility], [address] [place] [address], [phone], . -------- FINAL REPORT -------- Dictated By: Chhaya Natarajan Dictated Date: 12/12/2024 08:59 ET Assigned Physician: Chhaya Natarajan Reviewed and Electronically Signed By: Chhaya Natarajan Signed Date: 12/12/2024 09:04 ET Workstation ID: [id number] Transcribed By: Self Edit Transcribed Date: 12/12/2024 08:59 ET Narrative 12/12/2024 9:04 AM EDT Bilateral screening mammogram. CLINICAL: 49 years old, Female, routine annual exam. COMPARISON: Prior mammograms, latest from 11/22/2023. TECHNIQUE: Bilateral MLO and CC views were obtained digitally with 2-D C views and 3-D mammogram (digital breast tomosynthesis). Computer-aided detection was utilized in evaluation of this exam (CAD). FINDINGS: There is stable nodular opacity in the right lateral breast. There is no evidence of new suspicious mass or architectural distortion. No worrisome calcifications are evident. There has been no significant change from prior exam(s). BREAST DENSITY: B - There are scattered areas of fibroglandular density. Procedure Note Chhaya Natarajan MD - 12/12/2024 Bilateral screening mammogram. CLINICAL: 49 years old, Female, routine annual exam. COMPARISON: Prior mammograms, latest from 11/22/2023. TECHNIQUE: Bilateral MLO and CC views were obtained digitally with 2-D Cviews and 3-D mammogram (digital breast tomosynthesis). Computer-aideddetection was utilized in evaluation of this exam (CAD). FINDINGS: There is stable nodular opacity in the right lateral breast. There is no evidence of new suspicious mass or architectural distortion.No worrisome calcifications are evident. There has been no significantchange from prior exam(s). BREAST DENSITY: B - There are scattered areas of fibroglandular density. IMPRESSION: No mammographic evidence for malignancy. BI-RADS CATEGORY: 2 - BENIGN RECOMMENDATION: Screening bilateral mammogram is recommended in 1 year. Mammo Location: [place] [facility], [address] [place] [address], [phone], . -------- FINAL REPORT -------- Dictated By: Chhaya Natarajan Dictated Date: 12/12/2024 08:59 ET Assigned Physician: Chhaya Natarajan Reviewed and Electronically Signed By: Chhaya Natarajan Signed Date: 12/12/2024 09:04 ET Workstation ID: [id number] Transcribed By: Self Edit Transcribed Date: 12/12/2024 08:59 ET Colton Castro MD IMG BI PROCEDURES Final Result * External clinical lab (11/22/2024) Provider [facility] LAB BLOOD ORDERABLES Fin al Result * (ABNORMAL) Lipid panel with reflex to direct LDL (11/20/2024 10:06 AM EDT) Cholesterol 188 0 - 200 mg/dL LAB CHEMISTRY METHOD 11/20/2024 4:02 PM EDT [facility] Triglycerides 114 0 - 150 mg/dL LAB CHEMISTRY METHOD 11/20/2024 4:02 PM [facility] HDL 43 >=40 mg/dL LAB CHEMISTRY METHOD [facility] LDL Calculated 122(H) 0 - 100 mg/dL LAB CHEMISTRY METHOD 11/20/2024 4:02 PM EDT [facility] Comment:Estimated LDL Calcul ated using equation: Total cholesterol - HDL cholesterol - (Triglycerides/5) VLDL Cholesterol Robert 22.8 mg/dL LAB CHEMISTRY METHOD 11/20/2024 4:02 PM [facility] Non HDL Chol. (LDL+VLDL) 145(H) <145 mg/dL LAB CHEMISTRY METHOD 11/20/2024 4:02 PM [facility] Chol/HDL Ratio 4.4 0.0 - 4.4 LAB CHEMISTRY METHOD 11/20/2024 4:02 PM [facility] Blood Venous blood specimen / Unknown Venipuncture / Unknown 11/20/2024 10:06 AM EDT 11/20/2024 10:06 AM EDT us Colton Castro MD LAB BLOOD ORDERABLES Final Resu lt [facility] [address] [place] [address], * Microalbumin creatinine urine ratio (11/20/2024 10:06 AM EDT) Creatinine, Urine 147.0 mg/dL LAB CHEMISTRY METHOD 11/20/2024 1:44 PM EDT [facility] Microalb, Ur 9.2 0.0 - 29.0 mg/L LAB CHEMISTRY METHOD 11/20/2024 1:44 PM EDT [facility] Microalb/Creat Ratio 6 <30 mg/g creat LAB CHEMISTRY METHOD 11/20/2024 1:44 PM EDT [facility] Urine Urine specimen obtained by clean catch procedure / Unknown Non-blood Collection / Unknown 11/20/2024 10:06 AM EDT 11/20/2024 10:06 AM EDT us Colton Castro MD LAB URINE ORDERABLES Final Resu lt Performing Organization Address [facility] de Phone Number [facility] [address] [place] [address], [place] [phone] * Hemoglobin A1c (11/20/2024 10:06 AM EDT) Hemoglobin A1C 5.6 <6.5 % LAB CHEMISTRY METHOD 11/20/2024 1:15 PM EDT [facility] Mean Bld Glu Estim. 114 mg/dL LAB CHEMISTRY METHOD 11/20/2024 1:15 PM EDT [facility] Blood Venous blood specimen / Unknown Venipuncture / Unknown 11/20/2024 10:06 AM EDT 11/20/2024 10:06 AM EDT us Colton Castro MD LAB BLOOD ORDERABLES Final Resu lt Performing Organization Address [facility]/ZIP Co de Phone Number [facility] [address] [place] [address], [place] [phone] * (ABNORMAL) Comprehensive metabolic panel (11/20/2024 10:06 AM EDT) Sodium 142 133 - 145 mmol/L LAB CHEMISTRY METHOD 11/20/2024 4:02 PM EDT [facility] Potassium 3.6 3.5 - 5.5 mmol/L LAB CHEMISTRY METHOD 11/20/2024 4:02 PM EDT [facility] Chloride 104 96 - 110 mmol/L LAB CHEMISTRY METHOD 11/20/2024 4:02 PM [facility] CO2 33(H) 21 - 32 mmol/L LAB CHEMISTRY METHOD 11/20/2024 4:02 PM [facility] Anion Gap 5 3 - 11 LAB CHEMISTRY METHOD 11/20/2024 4:02 PM [facility] Glucose 80 70 - 100 mg/dL LAB CHEMISTRY METHOD 11/20/2024 4:02 PM [facility] BUN 13 5 - 25 mg/dL LAB CHEMISTRY METHOD 11/20/2024 4:02 PM [facility] Creatinine 0.64 0.50 - 1.10 mg/dL LAB CHEMISTRY METHOD 11/20/2024 4:02 PM [facility] eGFR 110 >=60 mL/min/1. 73m2 LAB CHEMISTRY METHOD 11/20/2024 4:02 PM [facility] Comment:Calculation based on the Chronic Kidney Disease Epidemiology Collaboration (CKD-EPI) equation refit without adjustment for race. BUN/Creatinine Ratio 20.3 LAB CHEMISTRY METHOD 11/20/2024 4:02 PM [facility] Calcium 9.4 8.5 - 10.5 mg/dL LAB CHEMISTRY METHOD 11/20/2024 4:02 [facility] AST (SGOT) 24 10 - 42 unit/L LAB CHEMISTRY METHOD 11/20/2024 4:02 [facility] ALT (SGPT) 27 10 - 60 unit/L LAB CHEMISTRY METHOD 11/20/2024 4:02 PM [facility] Alkaline Phosphatase 108 42 - 121 unit/L LAB CHEMISTRY METHOD 11/20/2024 4:02 PM [facility] Total Protein 7.1 6.0 - 8.0 g/dL LAB CHEMISTRY METHOD 11/20/2024 4:02 PM [facility] Albumin 4.1 3.2 - 5.0 g/dL LAB CHEMISTRY METHOD 11/20/2024 4:02 PM EDT [facility] Total Bilirubin 0.8 0.0 - 1.4 mg/dL LAB CHEMISTRY METHOD 11/20/2024 4:02 PM EDT [facility] Blood Venous blood specimen / Unknown Venipuncture / Unknown 11/20/2024 10:06 AM EDT 11/20/2024 10:06 AM EDT Colton Castro MD LAB BLOOD ORDERABLES Final Resu lt [facility] [address] [place] [address], * XR Foot 3+ Views bilat (10/08/2024 1:02 PM EDT) Anatomical Region Laterality Modality Lower Extremities, Foot Bilateral Computed Radiography Narrative 10/08/2024 5:59 PM EDT Right foot 3 views No fracture. No radiopaque foreign joint spaces normal Foot position Pes planus with Talus navicular uncovering decreased calcaneal inclination anterior displaced symes line talus navicular joint to calcaneal cuboid joint Left foot 3 views No fracture. No radiopaque foreign joint spaces normal Foot position Pes planus with Talus navicular uncovering decreased calcaneal inclination anterior displaced symes line talus navicular joint to calcaneal cuboid joint Filemon Ramirez DPAisha IMG XR PROCEDURES Final R esult * Hepatitis C antibody (07/31/2024 10:20 AM EDT) Hepatitis C Antibody Negative Negative LAB CHEMISTRY METHOD 07/31/2024 1:34 PM EDT [facility] Blood Venous blood specimen / Unknown Venipuncture / Unknown 07/31/2024 10:20 AM EDT 07/31/2024 10:20 AM EDT [facility] LAB BLOOD ORDERABLES Final Re sult Performing Organization Address [facility]/ZIP Co de Phone Number [facility] [address] [place] [address], [place] [phone] * HIV 1,2 antibody, p24 antigen with reflex to differentiation (07/31/2024 10:20 AM EDT) HIV Combo AB/AG Negative Negative LAB CHEMISTRY METHOD 07/31/2024 1:34 PM EDT [facility] Blood Venous blood specimen / Unknown Venipuncture / Unknown 07/31/2024 10:20 AM EDT 07/31/2024 10:20 AM EDT Narrative [facility] - 07/31/2024 1:34 PM EDT This assay is a 4th generation assay allowing for earlier detection of HIV infection by detecting the presence of the HIV-1 p24 antigen as well as the traditional antibodies to HIV type 1 (including group O) and type 2. Use of a 4th generation assay is the current CDC recommendation for HIV screening. [facility] LAB BLOOD ORDERABLES Final Re sult Performing Organization Address [facility] Co de Phone Number [facility] [address] [place] [address], [place] [phone] from Last 3 Months or Most Recently Relevant to Health Maintenance Additional Health Concerns Active Problems Noted Date Diagnosed Date Autogenerated Problem 12/08/2024 Insurance [facility] [address] [place] [phone] Care Teams Leaf Binner Relationship Specialty Start Date End Date Colton Castro MD [address] [place] [phone] PCP - General 01/27/09
== END 2024-12-20 11:51 | disposition home or self-care (01) ==
LOC: HO.HBS 11:47
PROVIDERS: PCP Internal Medicine; Visit Provider Physician Assistant Surgical
DX: E66.9 Obesity, unspecified (principal); Z98.84 Bariatric surgery status
CPT/HCPCS: 99214; G2211